=== PATIENT | female | born 1955 | race Caucasian/White ===

== ENCOUNTER 2018-01-03 12:32 | Emergency (ER) | payer OTHER, MEDICAID, SELFPAY ==
[2018-01-03 12:55] VITALS: BP 155/76; PULSE 77; RESP 20; TEMP 36.1; O2SAT 97
[2018-01-03 12:59] VITALS: PULSE 78; RESP 24; O2SAT 97
[2018-01-03] MEDS: ALBUTEROL/IPRATROPIUM 3 ML AMPUL INH (12:59)
--- NOTE | 2018-01-03 13:12 | ED_ITS ---
HPI - SOB/Dyspnea General Chief Complaint: Shortness of Breath/Dyspnea Stated Complaint: STATES HARD TIME BREATHING Time Seen by Provider: 01/03/18 13:11 Source: patient Mode of arrival: ambulatory Limitations: no limitations History of Present Illness 62 y/o female here for SOB and a cough for the past several days. she states that she has also had chest pain but that is with a cough. she states that she has a had a PE in the past and is on pradaxa. she has been taking her medications. she states that these symptoms are not like her prior PE. is using an albuterol INH at home. no fevers. Received a duo neb just prior to my evaluation and she states that she feels much better after that neb. Related Data Home Medications Medication Instructions Recorded Confirmed amlodipine 10 mg PO QDAY #0 04/02/11 01/03/18 tramadol 100 mg PO Q8HP #0 04/02/11 01/03/18 albuterol sulfate 3 ml INH PRN PRN #0 04/23/17 atorvastatin 80 mg PO HS #0 04/23/17 01/03/18 dabigatran etexilate [Pradaxa] 150 mg PO BID #0 04/23/17 01/03/18 spironolactone 50 mg PO QDAY #0 04/23/17 01/03/18 [CRANBERRY] PO QPM #0 05/28/17 [MILK THISTLE] PO QPM #0 05/28/17 [PROBIOTIC] PO QPM #0 05/28/17 [TURMERIC] PO QPM #0 05/28/17 coenzyme Q10 [Co Q-10] PO QPM #0 05/28/17 cyanocobalamin (vitamin B-12) PO QPM #0 05/28/17 [Vitamin B-12] albuterol sulfate [Ventolin HFA] 2 puff INHALATION PRN PRN 01/03/18 01/03/18 fluticasone-salmeterol [Advair HFA] 01/03/18 Previous Rx's Medication Instructions Recorded ipratropium-albuterol 3 ml INHALATION Q6-8H PRN #90 ml 01/03/18 levofloxacin [Levaquin] 750 mg PO DAILY 5 Days #5 tab 01/03/18 prednisone 60 mg PO DAILY 7 Days #21 tab 01/03/18 Allergies Allergy/AdvReac Type Severity Reaction Status Date / Time atenolol [ATENOLOL] Allergy Severe LUNG FILL Unverified 06/23/17 12:20 WITH FLUID doxycycline [DOXYCYCLINE] Allergy Severe HIVES Unverified 06/23/17 12:20 hydrochlorothiazide Allergy Severe COVERED IN Unverified 06/23/17 12:20 [HYDROCHLOROTHIAZIDE] BLISTERS lisinopril [LISINOPRIL] Allergy Severe SEVERE Unverified 06/23/17 12:20 COUGH metoprolol [METOPROLOL] Allergy Severe HAIR FELL Unverified 06/23/17 12:20 OUT Review of Systems Constitutional Denies fatigue, Denies fever(s) and Denies headache(s) ENT Ears, Nose, Mouth, and Throat: Denies headache(s) Cardiovascular Reports chest pain and Reports dyspnea Respiratory Reports chest congestion, Reports cough, Reports pain on inspiration, Reports pain with cough, Reports dyspnea, Denies stridor and Reports wheezing Gastrointestinal Gastrointestinal: Denies abdominal pain, Denies nausea and Denies vomiting Musculoskeletal Denies myalgias and Denies arthralgias Integumentary/Breasts Denies lesions and Denies rash Neurologic Denies confusion and Denies headache(s) Psychiatric Denies confusion Endocrine Denies fatigue Hematologic/Lymphatic Denies easy bleeding and Denies easy bruising Allergic/Immunologic Reports wheezing [facility] Medical History Hyperlipidemia (Acute) Hypertension (Acute) Pulmonary embolism (Acute) Surgical History No pertinent past surgical history (Acute) Social History Smoking Status: Current every day smoker Exam Initial Vital Signs Initial Vital Signs: Vital Signs Temperature 97 F L 01/03/18 12:55 Pulse Rate 77 01/03/18 12:55 Respiratory Rate 20 01/03/18 12:55 Blood Pressure 155/76 H 01/03/18 12:55 Pulse Oximetry 97 01/03/18 12:55 Const General: cooperative, healthy appearing, comfortable, well developed, well groomed and No acute distress Orientation: alert, awake and oriented x3 HENMT Head: normal to inspection and normocephalic Resp Effort & Inspection: normal respiratory effort Auscultation: clear to auscultation bilaterally Cardio Rate: regular rate Rhythm: regular rhythm Pulses: radial pulses present GI Inspection: non-distended Palpation: soft, No guarding and No tender Skin Lesions: no lesions Rashes: no rashes Neuro General: alert, awake and oriented x3 Extrem General: normal to inspection and capillary refill normal Psych Appearance: grossly normal and well kempt Course Orders Ordered: Discontinued Medications Albuterol (Proventil) 1.25 mg INH NOW ONE Stop: 01/03/18 14:45 Last Admin: 01/03/18 14:50 Dose: Albuterol (Ventolin) 2.5 mg INH NOW ONE Stop: 01/03/18 14:49 Last Admin: 01/03/18 14:49 Dose: 2.5 mg Albuterol/Ipratropium (Duoneb) 3 ml INH NOW ONE Stop: 01/03/18 12:58 Last Admin: 01/03/18 12:59 Dose: 3 ml Levofloxacin (Levaquin) 750 mg PO NOW ONE Stop: 01/03/18 13:21 Last Admin: 01/03/18 13:42 Dose: 750 mg Prednisone (Deltasone) 60 mg PO NOW ONE Stop: 01/03/18 13:21 Last Admin: 01/03/18 13:41 Dose: 60 mg Vital Signs - 8 hr 01/03/18 12:55 01/03/18 12:59 01/03/18 14:30 Temperature 97 F L Pulse Rate 77 78 88 Respiratory Rate 20 24 18 Blood Pressure 155/76 H Blood Pressure [Left Arm] 136/74 Pulse Oximetry 97 97 98 MDM - SOB/Dyspnea Lab Data Attestation: I reviewed the patient's lab results. Result diagrams: 01/03/18 13:51 01/03/18 13:51 Lab Results 01/03/18 01/03/18 Range/Units 13:51 13:51 WBC 7.9 (4.5-11.0) X10^3/uL RBC 5.24 H (4.0-5.2) X10^6/uL Hgb 16.3 H (12.0-16.0) g/dL Hct 48.3 H (36-46) % MCV 92.2 (80-100) fL MCH 31.0 (26-34) PG MCHC 33.7 (30-36) % RDW 13.6 (11.6-14.8) % Plt Count 242 (150-400) X10^3/uL Neut % (Auto) 72.6 (50-75) % Lymph % (Auto) 18.2 L (25-40) % [place] % (Auto) 6.1 (3-14) % Eos % (Auto) 2.5 (2-4) % Baso % (Auto) 0.6 (0-2) % Neut # (Auto) 5700 (9741-8548) /uL Sodium 141 (137-145) mmol/L Potassium 4.3 (3.4-5.1) mmol/L Chloride 102 (98-107) mmol/L Carbon Dioxide 28 (22-32) mmol/L BUN 13 (7-17) mg/dL Creatinine 0.60 (0.52-1.04) mg/dL Estimated GFR > 60.0 (>60) mL/min BUN/Creatinine Ratio 21.7 (6-22) Glucose 115 H (80-110) mg/dL Calcium 9.7 (8.4-10.2) mg/dL Troponin I < 0.012 (0.01-0.034) ng/mL Imaging Data Chest x-ray: Radiologist's impression: PROCEDURE: XR CHEST 1V INDICATIONS: Short of breath TECHNIQUE: One view of the chest was acquired. COMPARISON: [facility], CHEST 2 VIEW, 04/02/2011, 16:25. [facility], CHEST 2 VIEW, 03/27/2016, 15:33. [facility], CHEST 2 VIEW, 04/23/2017, 10:51. FINDINGS: Surgical changes and devices: None. Lungs and pleura: An incomplete inspiratory result is noted, causing a crowded appearance to the lung markings. No focal infiltrates are seen. No pneumothorax or significant pleural effusions are seen. Mediastinum: Mediastinal contours appear normal. Heart size is normal. Bones and chest wall: No suspicious bony lesions. Remote right lateral rib fractures are seen. Age-appropriate bony degenerative changes are seen. Overlying soft tissues appear unremarkable. IMPRESSION: Limited portable chest examination, without a significant cardiopulmonary abnormality identified. Dictated by: Zachery Maki M.D. on 01/03/2018 at 12:43 Approved by: Zachery Maki M.D. on 01/03/2018 at 12:43 ECG Data Attestation: I personally reviewed and interpreted this ECG as follows: Prior ECG tracings: not available for review Interpretation: sinus rate 70 normal axis normal QRS normal QTC no st/t wave changes MDM Narrative Medical decision making narrative: had a long discussion with the patient about her prior hx of PE and that she is at risk for this. she has been taking her pradaxa. she states that she did not want a CTA for a PE. she understood the risks. no PNA. much improved after the duo neb. will give a rx for this. doubt ACS, no indication for abx. she was given return precautions. she expressed understanding and agreement with plan. Discharge Plan Departure Patient Disposition: Home Clinical Impression: COPD (chronic obstructive pulmonary disease) Discharge Date/Time: 01/03/18 15:27 Interventions: ED Discharge Assessment Last Done: 01/03/18 15:27 Instructions: Chronic Obstructive Pulmonary Disease Activity Restrictions/Additional Instructions: Call your primary care doctor for a follow-up. Take the medications like we discussed. Return to the emergency department for any new or worsening symptoms. Prescriptions: New ipratropium-albuterol 0.5 mg-3 mg(2.5 mg base)/3 mL solution for nebulization 3 ml INHALATION Q6-8H PRN (Reason: shortness of breath or wheezing) Qty: 90 RF: 0 prednisone 20 mg tablet 60 mg PO DAILY 7 Days Qty: 21 RF: 0 levofloxacin [Levaquin] 750 mg tablet 750 mg PO DAILY 5 Days Qty: 5 RF: 0 No Action amlodipine 10 MG tablet 10 mg PO QDAY Qty: 0 RF: 0 tramadol 50 MG tablet 100 mg PO Q8HP Qty: 0 RF: 0 spironolactone 50 MG tablet 50 mg PO QDAY Qty: 0 RF: 0 albuterol sulfate 2.5 MG/3 ML solution for nebulization 3 ml INH PRN PRNQty: 0 RF: 0 atorvastatin 80 MG tablet 80 mg PO HS Qty: 0 RF: 0 dabigatran etexilate [Pradaxa] 150 MG capsule 150 mg PO BID Qty: 0 RF: 0 [CRANBERRY] PO QPM Qty: 0 RF: 0 [MILK THISTLE] PO QPM Qty: 0 RF: 0 [PROBIOTIC] PO QPM Qty: 0 RF: 0 [TURMERIC] PO QPM Qty: 0 RF: 0 cyanocobalamin (vitamin B-12) [Vitamin B-12] 500 mcg Tablet PO QPM Qty: 0 RF: 0 coenzyme Q10 [Co Q-10] 100 mg Capsule PO QPM Qty: 0 RF: 0 albuterol sulfate [Ventolin HFA] 90 mcg/actuation HFA aerosol inhaler 2 puff Inhalation PRN PRN (Reason: Shortness Of Breath) RF: 0 fluticasone-salmeterol [Advair HFA] 230-21 mcg/actuation HFA aerosol inhaler RF: 0
--- NOTE | 2018-01-03 13:21 | DI.RAD.S_ITS ---
PROCEDURE: XR CHEST 1V INDICATIONS: Short of breath TECHNIQUE: One view of the chest was acquired. COMPARISON: [facility], CHEST 2 VIEW, 04/02/2011, 16:25. [facility], CHEST 2 VIEW, 03/27/2016, 15:33. [facility], CHEST 2 VIEW, 04/23/2017, 10:51. FINDINGS: Surgical changes and devices: None. Lungs and pleura: An incomplete inspiratory result is noted, causing a crowded appearance to the lung markings. No focal infiltrates are seen. No pneumothorax or significant pleural effusions are seen. Mediastinum: Mediastinal contours appear normal. Heart size is normal. Bones and chest wall: No suspicious bony lesions. Remote right lateral rib fractures are seen. Age-appropriate bony degenerative changes are seen. Overlying soft tissues appear unremarkable. IMPRESSION: Limited portable chest examination, without a significant cardiopulmonary abnormality identified. Dictated by: Zachery Maki M.D. on 01/03/2018 at 12:43 Approved by: Zachery Maki M.D. on 01/03/2018 at 12:43
[2018-01-03] MEDS: predniSONE 20 MG TABLET 60 MG PO (13:41)
[2018-01-03] MEDS: levoFLOXacin 250 MG TABLET 750 MG PO (13:42)
[2018-01-03 14:00] LABS: Add Manual Diff / Slide Review NO; Basophils Percent Auto 0.6 % (0-2); Eosinophils Percent Auto 2.5 % (2-4); Hematocrit 48.3 % (36-46); Hemoglobin 16.3 g/dL (12.0-16.0); Lymphocytes Percent Auto 18.2 % (25-40); Mean Corpuscular HGB Conc 33.7 % (30-36); Mean Corpuscular Volume 92.2 fL (80-100); Monocytes Percent Auto 6.1 % (3-14); Neutrophils Absolute Auto 5700 /uL (3000-5900); Neutrophils Percent Auto 72.6 % (50-75); Platelet Count 242 X10^3/uL (150-400); Red Blood Cell Count 5.24 X10^6/uL (4.0-5.2); Red Cell Distribution Width 13.6 % (11.6-14.8); White Blood Cell Count 7.9 X10^3/uL (4.5-11.0)
[2018-01-03 14:19] LABS: BUN Creatinine Ratio 21.7 (6-22); Blood Urea Nitrogen 13 mg/dL (7-17); Calcium 9.7 mg/dL (8.4-10.2); Carbon Dioxide 28 mmol/L (22-32); Chloride 102 mmol/L (98-107); Estimated Glomerular Filt Rate > 60.0 mL/min (>60); Glucose 115 mg/dL (80-110); HEMOLYSIS < 15 (0-50); Potassium 4.3 mmol/L (3.4-5.1); Sodium 141 mmol/L (137-145)
[2018-01-03 14:30] VITALS: BP 136/74; PULSE 88; RESP 18; O2SAT 98
[2018-01-03 14:34] LABS: Troponin I < 0.012 ng/mL (0.01-0.034)
[2018-01-03] MEDS: ALBUTEROL 2.5 MG/3 ML NEB (ADULT) INH (14:49)
== END 2018-01-03 15:27 | disposition home or self-care (01) ==
PROVIDERS: Emergency Provider Emergency Medicine; Family Provider Nurse Practitioner Family; PCP Nurse Practitioner Family
DX: J44.9 Chronic obstructive pulmonary disease, unspecified (principal)
CPT/HCPCS: 36415; 71045; 80048; 84484; 85025; 93005; 93010; 94640; 99283; 99285; J7613

== ENCOUNTER 2018-01-25 13:31 | Emergency (ER) | payer OTHER, MEDICAID, SELFPAY ==
[2018-01-25 13:44] VITALS: BP 143/78; PULSE 76; RESP 20; TEMP 36.6; O2SAT 97; BMI 38.9
--- NOTE | 2018-01-25 15:02 | ED_ITS ---
HPI - URI/Sore Throat General Chief Complaint: Upper Respiratory Symptoms Stated Complaint: hard time breathing Time Seen by Provider: 01/25/18 14:23 Source: patient Mode of arrival: ambulatory Limitations: no limitations History of Present Illness HPI Narrative: Patient is a 62-year-old female who presents with shortness of breath. She has a history of COPD she says she has a hard time breathing especially at nighttime she cannot lay flat. She has shortness of breath with exertion. She feels like her chest is tight. But she has no real chest pain. She has been using her nebulizer machine at home without much relief. She was previously on his prednisone but is not currently on it. She denies fever or heart palpitations. MD Complaint: cough Related Data Home Medications Medication Instructions Recorded Confirmed amlodipine 10 mg PO DAILY #0 04/02/11 01/25/18 tramadol 100 mg PO Q4H PRN #0 04/02/11 01/25/18 albuterol sulfate 3 ml INH PRN PRN #0 04/23/17 atorvastatin 80 mg PO BEDTIME #0 04/23/17 01/25/18 dabigatran etexilate [Pradaxa] 150 mg PO BID #0 04/23/17 01/25/18 spironolactone 50 mg PO DAILY #0 04/23/17 01/25/18 [CRANBERRY] PO QPM #0 05/28/17 [MILK THISTLE] PO QPM #0 05/28/17 [PROBIOTIC] PO QPM #0 05/28/17 [TURMERIC] PO QPM #0 05/28/17 coenzyme Q10 [Co Q-10] PO QPM #0 05/28/17 cyanocobalamin (vitamin B-12) PO QPM #0 05/28/17 [Vitamin B-12] albuterol sulfate [Ventolin HFA] 2 puff INHALATION PRN PRN 01/03/18 01/25/18 fluticasone-salmeterol [Advair HFA] 01/03/18 valsartan 40 mg PO DAILY 01/25/18 01/25/18 Previous Rx's Medication Instructions Recorded ipratropium-albuterol 3 ml INHALATION Q6-8H PRN #90 ml 01/03/18 doxycycline hyclate 100 mg PO BID #14 cap 01/25/18 prednisone 50 mg PO DAILY #5 tab 01/25/18 Allergies Allergy/AdvReac Type Severity Reaction Status Date / Time atenolol [ATENOLOL] Allergy Severe LUNG FILL Verified 01/25/18 13:49 WITH FLUID doxycycline [DOXYCYCLINE] Allergy Severe HIVES Verified 01/25/18 13:49 hydrochlorothiazide Allergy Severe COVERED IN Verified 01/25/18 13:49 [HYDROCHLOROTHIAZIDE] BLISTERS lisinopril [LISINOPRIL] Allergy Severe SEVERE Verified 01/25/18 13:49 COUGH metoprolol [METOPROLOL] Allergy Severe HAIR FELL Verified 01/25/18 13:49 OUT Review of Systems Review of Systems GENERAL: Denies chills, fatigue, malaise, fever, sweats, travel HEENT: Denies sinus pain, ear pain, sore throat, difficulty swallowing, neck pain RESPIRATORY: See HPI CARDIOVASCULAR: Denies chest pain, palpitations, orthopnea, edema GASTROINTESTINAL: Denies nausea, vomiting, abdominal pain, diarrhea, constipation, melena. : Denies dysuria, frequency, incontinence, hematuria, urinary retention, flank pain. MUSCULOSKELETAL: Denies weakness, joint pain, or bony pain SKIN: No rash, no erythema, no pruritus NEUROLOGIC: Denies weakness, dizziness, headache, numbness, change in speech, confusion PSYCHIATRIC: No concerning psychosocial issues. 12 point review of systems is negative except for those stated above and HPI PFSH Medical History Hyperlipidemia (Acute) Hypertension (Acute) Pulmonary embolism (Acute) Surgical History No pertinent past surgical history (Acute) Social History Smoking Status: Current every day smoker Exam Initial Vital Signs Initial Vital Signs: Vital Signs Temperature 97.9 F 01/25/18 13:44 Pulse Rate 76 01/25/18 13:44 Respiratory Rate 20 01/25/18 13:44 Blood Pressure 143/78 H 01/25/18 13:44 Pulse Oximetry 97 01/25/18 13:44 GENERAL: In chair no acute distress speaking in full sentences HEENT: Head atraumatic,EOMI, pupils reactive, face symmetric CARDIOVASCULAR: Regular rate and rhythm without murmurs, rubs or gallops. RESPIRATORY: Decreased breath sounds bilaterally slight expiratory wheeze ABDOMEN: Soft, nontender. Normoactive bowel sounds all 4 quadrants. No guarding or rebound. EXTREMITIES: Normal range of motion, no clubbing or edema. Neurovascularly intact NEUROLOGICAL: Alert and oriented x4.Normal gait and speech. Cranial nerves II through XII grossly intact. SKIN: Warm, dry, no laceration, no petechiae, no rashes or lesions. Course Orders Ordered: ED Orders 01/25/18 14:58 Consult to Respiratory Therapy Evaluate & Treat EKG-12 Lead Stat 01/25/18 15:10 B Type Natriuretic Peptide Stat Complete Blood Count AUTO DIFF Stat Comprehensive Metabolic Panel Stat Magnesium Stat Partial Thromboplastin Time Stat Procalcitonin Stat Prothrombin Time INR Stat Troponin & CK Cardiac Panel Stat 01/25/18 15:38 Blood Culture Stat 01/25/18 15:54 Lactate (Lactic Acid) Stat Discontinued Medications Albuterol (Ventolin) 2.5 mg INH NOW ONE Stop: 01/25/18 15:39 Last Admin: 01/25/18 15:41 Dose: 2.5 mg Albuterol (Ventolin) 2.5 mg INH NOW ONE Stop: 01/25/18 15:47 Last Admin: 01/25/18 15:47 Dose: 2.5 mg Albuterol/Ipratropium (Duoneb) 3 ml INH NOW ONE Stop: 01/25/18 14:58 Last Admin: 01/25/18 15:36 Dose: 3 ml Methylprednisolone (Solu-Medrol 125 Mg Vial) 125 mg IV NOW ONE Stop: 01/25/18 14:58 Last Admin: 01/25/18 15:32 Dose: 125 mg Vital Signs - 8 hr 01/25/18 13:44 01/25/18 15:36 01/25/18 15:41 Temperature 97.9 F Pulse Rate 76 Respiratory Rate 20 Blood Pressure 143/78 H Pulse Oximetry 97 97 97 01/25/18 15:48 01/25/18 16:34 Temperature Pulse Rate 75 Respiratory Rate 22 Blood Pressure 150/79 H Pulse Oximetry 98 95 MDM - URI/Sore Throat Lab Data Attestation: I reviewed the patient's lab results. Result diagrams: 01/25/18 15:10 01/25/18 15:10 Lab Results 01/25/18 01/25/18 01/25/18 Range/Units 15:10 15:10 15:10 WBC 8.4 (4.5-11.0) X10^3/uL RBC 5.33 H (4.0-5.2) X10^6/uL Hgb 16.8 H (12.0-16.0) g/dL Hct 49.6 H (36-46) % MCV 93.0 (80-100) fL MCH 31.5 (26-34) PG MCHC 33.9 (30-36) % RDW 14.3 (11.6-14.8) % Plt Count 227 (150-400) X10^3/uL Neut % (Auto) 73.2 (50-75) % Lymph % (Auto) 14.0 L (25-40) % [place] % (Auto) 6.9 (3-14) % Eos % (Auto) 5.3 H (2-4) % Baso % (Auto) 0.6 (0-2) % Neut # (Auto) 6200 H (2677-7276) /uL PT 12.0 (10.1-12.7) SECONDS INR 1.1 (0.9-1.3) APTT 60 H (26.4-36.2) SECONDS Sodium 142 (137-145) mmol/L Potassium 4.7 (3.4-5.1) mmol/L Chloride 103 (98-107) mmol/L Carbon Dioxide 26 (22-32) mmol/L BUN 15 (7-17) mg/dL Creatinine 0.60 (0.52-1.04) mg/dL Estimated GFR > 60.0 (>60) mL/min BUN/Creatinine Ratio 25.0 H (6-22) Glucose 116 H (80-110) mg/dL Lactate (0.7-2.1) mmol/L Calcium 10.0 (8.4-10.2) mg/dL Magnesium 1.9 (1.6-2.3) mg/dL Total Bilirubin 0.9 (0.2-1.3) mg/dL AST 22 (14-36) IU/L ALT 25 (9-52) IU/L Alkaline Phosphatase 88 (38-126) U/L Total Creatine Kinase 45 (30-135) U/L CK-MB (CK-2) TNP CK-MB (CK-2) Rel Index TNP Troponin I < 0.012 (0.01-0.034) ng/mL B-Natriuretic Peptide < 29.4 (<100) Total Protein 7.7 (6.3-8.2) g/dL Albumin 4.9 (3.5-5.0) g/dL Globulin 2.8 (1.7-4.1) g/dL Albumin/Globulin Ratio 1.8 (1.0-2.8) Procalcitonin (<0.5) ng/mL 01/25/18 01/25/18 Range/Units 15:10 15:54 WBC (4.5-11.0) X10^3/uL RBC (4.0-5.2) X10^6/uL Hgb (12.0-16.0) g/dL Hct (36-46) % MCV (80-100) fL MCH (26-34) PG MCHC (30-36) % RDW (11.6-14.8) % Plt Count (150-400) X10^3/uL Neut % (Auto) (50-75) % Lymph % (Auto) (25-40) % [place] % (Auto) (3-14) % Eos % (Auto) (2-4) % Baso % (Auto) (0-2) % Neut # (Auto) (8691-6080) /uL PT (10.1-12.7) SECONDS INR (0.9-1.3) APTT (26.4-36.2) SECONDS Sodium (137-145) mmol/L Potassium (3.4-5.1) mmol/L Chloride (98-107) mmol/L Carbon Dioxide (22-32) mmol/L BUN (7-17) mg/dL Creatinine (0.52-1.04) mg/dL Estimated GFR (>60) mL/min BUN/Creatinine Ratio (6-22) Glucose (80-110) mg/dL Lactate 1.1 (0.7-2.1) mmol/L Calcium (8.4-10.2) mg/dL Magnesium (1.6-2.3) mg/dL Total Bilirubin (0.2-1.3) mg/dL AST (14-36) IU/L ALT (9-52) IU/L Alkaline Phosphatase (38-126) U/L Total Creatine Kinase (30-135) U/L CK-MB (CK-2) CK-MB (CK-2) Rel Index Troponin I (0.01-0.034) ng/mL B-Natriuretic Peptide (<100) Total Protein (6.3-8.2) g/dL Albumin (3.5-5.0) g/dL Globulin (1.7-4.1) g/dL Albumin/Globulin Ratio (1.0-2.8) Procalcitonin < 0.05 (<0.5) ng/mL Imaging Data Chest x-ray: Radiologist's impression: PROCEDURE: XR CHEST 1V INDICATIONS: Short of breath TECHNIQUE: One view of the chest was acquired. COMPARISON: [facility], CHEST 2 VIEW, 04/02/2011, 16:25. [facility], CHEST 2 VIEW, 03/27/2016, 15:33. [facility], CHEST 2 VIEW, 04/23/2017, 10:51. FINDINGS: Surgical changes and devices: None. Lungs and pleura: An incomplete inspiratory result is noted, causing a crowded appearance to the lung markings. No focal infiltrates are seen. No pneumothorax or significant pleural effusions are seen. Mediastinum: Mediastinal contours appear normal. Heart size is normal. Bones and chest wall: No suspicious bony lesions. Remote right lateral rib fractures are seen. Age-appropriate bony degenerative changes are seen. Overlying soft tissues appear unremarkable. IMPRESSION: Limited portable chest examination, without a significant cardiopulmonary abnormality identified. Dictated by: Zachery Maki M.D. on 01/03/2018 at 12:43 ECG Data Attestation: I personally reviewed and interpreted this ECG as follows: Interpretation: Sinus rhythm rate [address] changes MDM Narrative Medical decision making narrative: Patient overall is feeling much better after back to back breathing treatments. She had 3 total. She has no white count or fever. This is likely COPD exacerbation. EKG is and troponin are negative. Initially wrote for doxycycline however I did receive a phone call from the pharmacy patient apparently is allergic to doxycycline, it was changed to Levaquin 750 mg once a day. Discharge Plan Departure Patient Disposition: Home Clinical Impression: COPD (chronic obstructive pulmonary disease) Discharge Date/Time: 01/25/18 16:34 Interventions: ED Discharge Assessment Last Done: 01/25/18 16:34 Instructions: Chronic Obstructive Pulmonary Disease Activity Restrictions/Additional Instructions: *You have been diagnosed with COPD exacerbation *Continue to take medications as directed Albuterol inhaler every 4 hr if needed for coughing or shortness of breath Prednisone daily for 5 days Doxycycline twice a day 7 days *Follow up with your primary care provider in 2-3 days *Return to ER if you should have increasing shortness of breath, chest pain or any new, worsening or concerning symptoms Prescriptions: New doxycycline hyclate 100 mg capsule 100 mg PO BID Qty: 14 RF: 0 prednisone 50 mg tablet 50 mg PO DAILY Qty: 5 RF: 0 No Action amlodipine 10 MG tablet 10 mg PO DAILY Qty: 0 RF: 0 tramadol 50 MG tablet 100 mg PO Q4H PRN (Reason: pain) Qty: 0 RF: 0 spironolactone 50 MG tablet 50 mg PO DAILY Qty: 0 RF: 0 albuterol sulfate 2.5 MG/3 ML solution for nebulization 3 ml INH PRN PRNQty: 0 RF: 0 atorvastatin 80 MG tablet 80 mg PO BEDTIME Qty: 0 RF: 0 dabigatran etexilate [Pradaxa] 150 MG capsule 150 mg PO BID Qty: 0 RF: 0 [CRANBERRY] PO QPM Qty: 0 RF: 0 [MILK THISTLE] PO QPM Qty: 0 RF: 0 [PROBIOTIC] PO QPM Qty: 0 RF: 0 [TURMERIC] PO QPM Qty: 0 RF: 0 cyanocobalamin (vitamin B-12) [Vitamin B-12] 500 mcg Tablet PO QPM Qty: 0 RF: 0 coenzyme Q10 [Co Q-10] 100 mg Capsule PO QPM Qty: 0 RF: 0 albuterol sulfate [Ventolin HFA] 90 mcg/actuation HFA aerosol inhaler 2 puff Inhalation PRN PRN (Reason: Shortness Of Breath) RF: 0 fluticasone-salmeterol [Advair HFA] 230-21 mcg/actuation HFA aerosol inhaler RF: 0 ipratropium-albuterol 0.5 mg-3 mg(2.5 mg base)/3 mL solution for nebulization 3 ml INHALATION Q6-8H PRN (Reason: shortness of breath or wheezing) Qty: 90 RF: 0 valsartan 40 mg tablet 40 mg PO DAILY RF: 0 Referrals: Anna Barker ARNP [Primary Care Provider] -
[2018-01-25 15:30] LABS: INR 1.1 (0.9-1.3)
[2018-01-25 15:32] LABS: Add Manual Diff / Slide Review NO; Basophils Percent Auto 0.6 % (0-2); Eosinophils Percent Auto 5.3 % (2-4); Hematocrit 49.6 % (36-46); Hemoglobin 16.8 g/dL (12.0-16.0); Mean Corpuscular HGB Conc 33.9 % (30-36); Mean Corpuscular Hemoglobin 31.5 PG (26-34); Monocytes Percent Auto 6.9 % (3-14); Neutrophils Absolute Auto 6200 /uL (3000-5900); Neutrophils Percent Auto 73.2 % (50-75); PTT Partial Thromboplastin Tim 60 SECONDS (26.4-36.2); Platelet Count 227 X10^3/uL (150-400); Red Blood Cell Count 5.33 X10^6/uL (4.0-5.2); Red Cell Distribution Width 14.3 % (11.6-14.8); White Blood Cell Count 8.4 X10^3/uL (4.5-11.0)
[2018-01-25] MEDS: methylPREDNISolone 125 MG/2 ML VIAL IV (15:32)
[2018-01-25 15:34] LABS: Alanine Aminotransferase 25 IU/L (9-52); Albumin 4.9 g/dL (3.5-5.0); Albumin Globulin Ratio 1.8 (1.0-2.8); Alkaline Phosphatase 88 U/L (38-126); Aspartate Aminotransferase 22 IU/L (14-36); Bilirubin Total 0.9 mg/dL (0.2-1.3); Blood Urea Nitrogen 15 mg/dL (7-17); Carbon Dioxide 26 mmol/L (22-32); Chloride 103 mmol/L (98-107); Creatine Kinase 45 U/L (30-135); Estimated Glomerular Filt Rate > 60.0 mL/min (>60); Globulin 2.8 g/dL (1.7-4.1); Glucose 116 mg/dL (80-110); HEMOLYSIS < 15 (0-50); Magnesium 1.9 mg/dL (1.6-2.3); Potassium 4.7 mmol/L (3.4-5.1); Sodium 142 mmol/L (137-145); Total Protein 7.7 g/dL (6.3-8.2)
[2018-01-25 15:36] VITALS: O2SAT 97
[2018-01-25] MEDS: ALBUTEROL/IPRATROPIUM 3 ML AMPUL INH (15:36)
[2018-01-25 15:41] VITALS: O2SAT 97
[2018-01-25] MEDS: ALBUTEROL 2.5 MG/3 ML NEB (ADULT) INH ×2 (15:41→15:47)
[2018-01-25 15:47] LABS: Troponin I < 0.012 ng/mL (0.01-0.034)
[2018-01-25 15:48] VITALS: O2SAT 98
[2018-01-25 15:48] LABS: Procalcitonin < 0.05 ng/mL (<0.5)
[2018-01-25 15:49] LABS: B Type Natriuretic Peptide < 29.4 (<100)
[2018-01-25 16:08] LABS: Lactate (Lactic Acid) 1.1 mmol/L (0.7-2.1)
[2018-01-25 16:34] VITALS: BP 150/79; PULSE 75; RESP 22; O2SAT 95
== END 2018-01-25 16:34 | disposition home or self-care (01) ==
PROVIDERS: Emergency Provider Emergency Medicine; PCP Nurse Practitioner Family
DX: J44.9 Chronic obstructive pulmonary disease, unspecified (principal)
CPT/HCPCS: 36415; 36591; 80053; 82550; 83605; 83735; 83880; 84145; 84484; 85025; 85610; 85730; 87040; 93005; 94640; 96374; 99283; 99284; J2930; J7613

== ENCOUNTER → 2018-02-19 14:07 | Outpatient (CLI) | payer OTHER, MEDICAID, SELFPAY ==
--- NOTE | 2018-02-19 | DI.MRI.S_ITS ---
PROCEDURE: MR KNEE RT WO CON INDICATIONS: UNILATERAL PRIMARY OSTEOARTHRITIS OF RIGHT KNEE TECHNIQUE: Noncontrast sagittal PD fast spin echo and T2 fast spin echo with fat saturation, sagittal 3-D FLASH with fat saturation; coronal T1 spin echo and PD fast spin echo with fat saturation, and axial PD fast spin echo with fat saturation through the knee. COMPARISON: [facility] [place], CR, XR KNEE STANDING BILATERAL, 06/08/2017, 15:16. [facility], MR, KNEE WITHOUT CONTRAST, 06/28/2017, 14:49. FINDINGS: Image quality: Excellent. 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 There is mild undersurface signal change involving the posterior horn medial meniscus complex sample image [id number] of series 8 which is new and represent subtle undersurface nondisplaced tear however recommend correlation to clinical exam findings. Lateral meniscus appears grossly intact. Cruciate ligaments: The anterior and posterior cruciate ligaments appear intact. Medial structures: The medial collateral ligament appears intact. Visualized portions of the distal semimembranosus and pes anserinus tendons appear minimally thickened with low-grade intrasubstance signal change. No abnormal bursal fluid. Lateral structures: The lateral collateral ligament, long and short heads of the biceps femoris tendon appear intact. The popliteus tendon appears normal; the popliteofibular ligament appears intact. The posterosuperior and anteroinferior popliteomeniscal fascicles appear intact. The arcuate and fabellofibular ligaments appear intact, on either side of the lateral inferior geniculate artery. Iliotibial band appears normal. Anterior structures: The quadriceps and patellar tendons appear intact. Minimal diffuse patellar tendinopathy. Patellar alignment is normal. No femoral trochlear dysplasia or ventral trochlear prominence. No edema in the infrapatellar fat pad. Bones and cartilage: No bone marrow contusions or fractures. In the area of previously described T2 hyperintense possible enchondroma involving the medial tibial plateau, this appears less conspicuous since prior study dated 06/28/17 (image 22 series 11) no discrete lesion is currently seen and the previous appearance may have been focal edema/cystic change, potentially related to minimal semimembranosus or pes anserinus insertional tendinopathy. Within the medial compartment there is diffuse partial thickness loss of the femoral and tibial articular cartilage without focal defect. This appears unchanged. Within the lateral compartment, intrasubstance signal changes of the weightbearing tibial cartilage without definite focal defect. This also appears unchanged. Within the patellofemoral compartment, there is diffuse partial thickness loss of the trochlear and patellar articular cartilage with subchondral cystic change/marrow edema at the median patellar ridge which is more conspicuous since the prior study Joint space: There is physiologic knee joint fluid. No Barragan's cyst. Normal appearing synovial plicae are incidentally noted. IMPRESSION: Interval decrease in the prior T2 hyperintense focus seen at the medial tibial plateau since the prior study suggestive of resolving cystic change/edema rather than enchondroma. Minimal interval progression of subchondral patellar signal changes related to patellofemoral compartment joint degeneration. Grossly unchanged appearance of the medial and lateral compartments. Possible nondisplaced undersurface tear involving the posterior horn of the medial meniscus, new since prior study although please correlate clinically given the subtle MR appearance Dictated by: Wiliam Farley M.D. on 02/21/2018 at 9:46 Approved by: Wiliam Farley M.D. on 02/21/2018 at 10:15
== END ==
PROVIDERS: PCP Nurse Practitioner Family; Visit Provider Orthopaedic Surgery
DX: M17.11 Unilateral primary osteoarthritis, right knee (principal)
CPT/HCPCS: 73721

== ENCOUNTER 2018-06-15 11:55 | Emergency (ER) | payer OTHER, MEDICAID, SELFPAY ==
[2018-06-15] VITALS (10 sets, daily range): BP systolic 137–145; BP diastolic 59–87; PULSE 68–83; RESP 20–32; TEMP 37.2; O2SAT 89–98
[2018-06-15] MEDS: ALBUTEROL/IPRATROPIUM 3 ML AMPUL INH ×2 (12:16→13:53)
--- NOTE | 2018-06-15 12:52 | ED.SOB ---
HPI - SOB/Dyspnea General Chief Complaint: Shortness of Breath/Dyspnea Stated Complaint: TROUBLE BREATHING Time Seen by Provider: 06/15/18 12:23 Source: patient Mode of arrival: ambulatory Limitations: no limitations History of Present Illness Patient presents emergency department complaining of shortness of breath for 3 days. She has a history of COPD with as needed home O2 use, and states that she has also had a recent URI, which is still bothering her. Patient states that she has tried using her home nebulizer treatments, as well as double dosing on her Advair, and does not feel like she is getting any better. In fact, she states she feels as though she is getting worse. Patient states she has not measured any fevers, but states that she did take some Tylenol and ibuprofen last night, and about an hour later, noted herself to be sweating heavily. She states that she has not been coughing up anything, but her chest feels tight. No abdominal symptoms. Patient states her chest is ?sore? with deep breaths and coughing. Related Data Home Medications Medication Instructions Recorded Confirmed amlodipine 10 mg PO DAILY #0 04/02/11 01/25/18 tramadol 100 mg PO Q4H PRN #0 04/02/11 01/25/18 albuterol sulfate 3 ml INH PRN PRN #0 04/23/17 atorvastatin 80 mg PO BEDTIME #0 04/23/17 01/25/18 dabigatran etexilate [Pradaxa] 150 mg PO BID #0 04/23/17 01/25/18 spironolactone 50 mg PO DAILY #0 04/23/17 01/25/18 [CRANBERRY] PO QPM #0 05/28/17 [MILK THISTLE] PO QPM #0 05/28/17 [PROBIOTIC] PO QPM #0 05/28/17 [TURMERIC] PO QPM #0 05/28/17 coenzyme Q10 [Co Q-10] PO QPM #0 05/28/17 cyanocobalamin (vitamin B-12) PO QPM #0 05/28/17 [Vitamin B-12] albuterol sulfate [Ventolin HFA] 2 puff INHALATION PRN PRN 01/03/18 01/25/18 fluticasone propion-salmeterol 01/03/18 [Advair HFA] valsartan 40 mg PO DAILY 01/25/18 01/25/18 Previous Rx's Medication Instructions Recorded ipratropium-albuterol 3 ml INHALATION Q6-8H PRN #90 ml 01/03/18 doxycycline hyclate 100 mg PO BID #14 cap 01/25/18 prednisone 50 mg PO DAILY #5 tab 01/25/18 prednisone 60 mg PO DAILY #15 tab 06/15/18 Allergies Allergy/AdvReac Type Severity Reaction Status Date / Time atenolol [ATENOLOL] Allergy Severe LUNG FILL Verified 01/25/18 13:49 WITH FLUID doxycycline [DOXYCYCLINE] Allergy Severe HIVES Verified 01/25/18 13:49 hydrochlorothiazide Allergy Severe COVERED IN Verified 01/25/18 13:49 [HYDROCHLOROTHIAZIDE] BLISTERS lisinopril [LISINOPRIL] Allergy Severe SEVERE Verified 01/25/18 13:49 COUGH metoprolol [METOPROLOL] Allergy Severe HAIR FELL Verified 01/25/18 13:49 OUT Review of Systems Constitutional Denies chills, Denies fever(s), Denies lethargy and Denies weakness Eyes Denies change in vision, Denies eye discharge, Denies irritation and Denies loss of vision ENT Ears, Nose, Mouth, and Throat: Denies change in voice, Denies neck pain and Denies sore throat Cardiovascular Denies chest pain, Denies irregular heart rhythm, Denies lightheadedness, Denies palpitations, Reports dyspnea, Reports dyspnea on exertion and Denies orthopnea Respiratory Reports cough (Dry), Reports dyspnea, Reports dyspnea on exertion and Denies wheezing Gastrointestinal Gastrointestinal: Denies abdominal pain, Denies change in bowel habits, Denies diarrhea, Denies nausea and Denies vomiting Genitourinary Denies hematuria, Denies flank pain, Denies urinary incontinence and Denies urinary urgency Musculoskeletal Denies neck pain Integumentary/Breasts Denies pruritus, Denies erythema, Denies rash and Denies wounds Neurologic Denies confusion, Denies loss of vision and Denies weakness Psychiatric Denies anxiety, Denies confusion, Denies depression, Denies homicidal ideation and Denies suicidal ideation Endocrine Denies palpitations Hematologic/Lymphatic Denies easy bruising Allergic/Immunologic Denies wheezing [facility] Medical History Hyperlipidemia (Acute) Hypertension (Acute) Pulmonary embolism (Acute) Surgical History No pertinent past surgical history (Acute) Social History Smoking Status: Current every day smoker Social History Smoking Status: Current every day smoker Exam Initial Vital Signs Initial Vital Signs: Vital Signs Temperature 98.9 F 06/15/18 12:14 Pulse Rate 81 06/15/18 12:14 Respiratory Rate 30 H 06/15/18 12:14 Blood Pressure 143/65 H 06/15/18 12:14 Pulse Oximetry 89 L 06/15/18 12:14 Const General: cooperative and well developed Nutritional Appearance: well nourished Orientation: alert, awake, oriented x3 and not confused HENMT Head: normocephalic and atraumatic Ears: external ears normal Nose: external nose normal and No nasal discharge Face and sinus: face symmetric and No dry mucous membranes Mouth: oral mucosae normal and moist mucous membranes Teeth and gingiva: dentition normal Eyes General: appearance normal, both eyes and all related structures Eyelids: eyelids normal Conjunctivae: conjunctivae normal Sclera: sclerae normal Pupils: PERRL EOM: EOM intact bilaterally Neck Neck: normal visual inspection, trachea midline, No lymphadenopathy, No midline deformity and No JVD Lymphatic: No lymphedema Chest Chest: normal inspection of the chest Resp Effort & Inspection: normal respiratory effort, able to speak in complete sentences, no respiratory distress and no use of accessory muscles Auscultation: diminished lung sounds bilaterally throughout, no rales, no rhonchi and wheezes Cardio Rate: regular rate Rhythm: regular rhythm Heart Sounds: no click, no gallops, no murmurs and no rubs Pulses: normal peripheral pulses GI Inspection: non-distended Palpation: soft, no hepatosplenomegaly, No guarding, No pulsatile mass and No tender Auscultation: normal bowel sounds Back/Spine/Pelvis Back: No CVA tenderness Cervical Spine: cervical ROM normal and No pain with cervical ROM Thoracic/Lumbar Spine: thoracic and lumbar spine normal to inspection Skin General: no rashes or lesions noted, No jaundice and No petechiae Neuro General: alert, oriented x3, gait normal and no focal motor deficits Speech: speech normal Extrem General: full ROM, no clubbing, cyanosis or edema, no pedal edema and no calf tenderness Psych Appearance: well kempt Mental Status: mental status grossly normal Attitude: cooperative Thought Content: normal and suicidality Judgment: judgment good Course Course Narrative: Patient was treated with a DuoNeb in the emergency department, as well as IV Decadron. She was also worked up with labs and chest x-ray. Patient had also had a DuoNeb just before coming to the emergency department. The patient did have decreased air movement and was wheezing, but was able to speak in full sentences without difficulty in the emergency department. Orders Ordered: Discontinued Medications Albuterol/Ipratropium (Duoneb) 3 ml INH Q1H PRN PRN Reason: Shortness Of Breath Last Admin: 06/15/18 12:16 Dose: 3 ml Albuterol/Ipratropium (Duoneb) 3 ml INH NOW ONE Stop: 06/15/18 13:51 Last Admin: 06/15/18 13:53 Dose: 3 ml Dexamethasone 20 mg/ Sodium (Chloride) 52 mls @ 208 mls/hr IV NOW ONE Stop: 06/15/18 12:52 Last Infusion: 06/15/18 13:25 Dose: 0 mls/hr Admin: 06/15/18 13:01 Dose: 208 mls/hr Sodium Chloride (Normal Saline 0.9%) 1,000 mls @ 1,000 mls/hr IV BOLUS ONE Stop: 06/15/18 13:50 Last Infusion: 06/15/18 14:50 Dose: 0 mls/hr Admin: 06/15/18 13:01 Dose: 1,000 mls/hr Lorazepam (Ativan) 1 mg IV NOW ONE Stop: 06/15/18 12:52 Last Admin: 06/15/18 13:00 Dose: 1 mg Vital Signs - 8 hr 06/15/18 12:14 06/15/18 12:17 06/15/18 12:23 Temperature 98.9 F Pulse Rate 81 80 Respiratory Rate 30 H 32 H Blood Pressure 143/65 H Blood Pressure [Left Arm] 143/65 H Pulse Oximetry 89 L 90 L 92 06/15/18 12:33 Temperature Pulse Rate 82 Respiratory Rate 30 H Blood Pressure Blood Pressure [Left Arm] 137/59 L Pulse Oximetry 93 MDM - SOB/Dyspnea Medical Records Attestation: I reviewed the patient's medical records. Lab Data Attestation: I reviewed the patient's lab results. Result diagrams: 06/15/18 12:07 06/15/18 12:07 Lab Results 06/15/18 06/15/18 Range/Units 12: 12:07 WBC 6.8 (4.5-11.0) X10^3/uL RBC 4.76 (4.0-5.2) X10^6/uL Hgb 15.0 (12.0-16.0) g/dL Hct 44.7 (36-46) % MCV 93.8 (80-100) fL MCH 31.5 (26-34) PG MCHC 33.6 (30-36) % RDW 13.5 (11.6-14.8) % Plt Count 189 (150-400) X10^3/uL Neut % (Auto) 84.4 H (50-75) % Lymph % (Auto) 7.4 L (25-40) % Mercer % (Auto) 7.1 (3-14) % Eos % (Auto) 0.7 L (2-4) % Baso % (Auto) 0.4 (0-2) % Neut # (Auto) 5800 (6145-0850) /uL Lymph # (Auto) 500 L (7388-5111) /uL Mercer # (Auto) 500 (0-900) /uL Eos # (Auto) 0 (0-450) /uL Baso # (Auto) 0 (0-100) /uL Sodium 139 (137-145) mmol/L Potassium 3.5 (3.4-5.1) mmol/L Chloride 103 (98-107) mmol/L Carbon Dioxide 26 (22-32) mmol/L BUN 6 L (7-17) mg/dL Creatinine 0.60 (0.52-1.04) mg/dL Estimated GFR > 60.0 (>60) mL/min BUN/Creatinine Ratio 10.0 (6-22) Glucose 178 H (80-110) mg/dL Calcium 9.0 (8.4-10.2) mg/dL Total Bilirubin 0.5 (0.2-1.3) mg/dL AST 89 H (14-36) IU/L ALT 74 H (9-52) IU/L Alkaline Phosphatase 98 (38-126) U/L Total Protein 6.9 (6.3-8.2) g/dL Albumin 4.0 (3.5-5.0) g/dL Globulin 2.9 (1.7-4.1) g/dL Albumin/Globulin Ratio 1.4 (1.0-2.8) Imaging Data Chest x-ray: Radiologist's impression: [address] [address] XRay Report Signed Patient: Hermila Calderón KMR#: [id number] : 8Acct:[id number] Age/Sex: 63 / FDate of Service: 06/15/18 Loc: ED Accession Number: [id number] Procedure: XR chest 2V Ordering Provider: Desiree Hay MD PROCEDURE: XR CHEST 2V INDICATIONS: dyspnea TECHNIQUE: 2 views of the chest were acquired. COMPARISON: [facility], , XR CHEST 1V, 01/03/2018, 13:26. FINDINGS: Surgical changes and devices: None. Lungs and pleura: Minimal increased pulmonary vascularity. No pleural effusions or pneumothorax. Mediastinum: Mediastinal contours are normal. Heart size is normal. Bones and chest wall: No suspicious bony abnormalities. Soft tissues appear unremarkable. IMPRESSION: Minimal increased pulmonary vacularity. Dictated by: Jaimie Arredondo M.D. on 06/15/2018 at 13:19 Approved by: Jaimie Arredondo M.D. on 06/15/2018 at 13:23 Discharge Plan Departure Patient Disposition: Home Clinical Impression: Acute exacerbation of chronic obstructive airways disease, Acute upper respiratory infection Discharge Date/Time: 06/15/18 16:15 Interventions: ED Discharge Assessment Last Done: 06/15/18 16:13 Instructions: DI for Chronic Obstructive Pulmonary Disease, DI for Viral Upper Respiratory Infection -- Adult Activity Restrictions/Additional Instructions: Your x-ray looks good. Please take the prednisone, as directed, along with your inhalers and nebulizers at home. You have been given a prescription for antibiotics, which you do not need to take at this time. However, if you begin running fevers and coughing up thick yellow sputum, you should start the antibiotics. Prescriptions: New prednisone 20 mg tablet 60 mg PO DAILY Qty: 15 RF: 0 No Action amlodipine 10 MG tablet 10 mg PO DAILY Qty: 0 RF: 0 tramadol 50 MG tablet 100 mg PO Q4H PRN (Reason: pain) Qty: 0 RF: 0 spironolactone 50 MG tablet 50 mg PO DAILY Qty: 0 RF: 0 albuterol sulfate 2.5 MG/3 ML solution for nebulization 3 ml INH PRN PRNQty: 0 RF: 0 atorvastatin 80 MG tablet 80 mg PO BEDTIME Qty: 0 RF: 0 dabigatran etexilate [Pradaxa] 150 MG capsule 150 mg PO BID Qty: 0 RF: 0 [CRANBERRY] PO QPM Qty: 0 RF: 0 [MILK THISTLE] PO QPM Qty: 0 RF: 0 [PROBIOTIC] PO QPM Qty: 0 RF: 0 [TURMERIC] PO QPM Qty: 0 RF: 0 cyanocobalamin (vitamin B-12) [Vitamin B-12] 500 mcg Tablet PO QPM Qty: 0 RF: 0 coenzyme Q10 [Co Q-10] 100 mg Capsule PO QPM Qty: 0 RF: 0 albuterol sulfate [Ventolin HFA] 90 mcg/actuation HFA aerosol inhaler 2 puff Inhalation PRN PRN (Reason: Shortness Of Breath) RF: 0 fluticasone propion-salmeterol [Advair HFA] 230-21 mcg/actuation HFA aerosol inhaler RF: 0 ipratropium-albuterol 0.5 mg-3 mg(2.5 mg base)/3 mL solution for nebulization 3 ml INHALATION Q6-8H PRN (Reason: shortness of breath or wheezing) Qty: 90 RF: 0 valsartan 40 mg tablet 40 mg PO DAILY RF: 0 doxycycline hyclate 100 mg capsule 100 mg PO BID Qty: 14 RF: 0 prednisone 50 mg tablet 50 mg PO DAILY Qty: 5 RF: 0 Referrals: Anna Barker ARNP [Primary Care Provider] - Stand Alone Forms: Work Release Note
--- NOTE | 2018-06-15 12:57 | ED_ITS ---
HPI - SOB/Dyspnea General Chief Complaint: Shortness of Breath/Dyspnea Stated Complaint: TROUBLE BREATHING Time Seen by Provider: 06/15/18 12:23 Source: patient Mode of arrival: ambulatory Limitations: no limitations History of Present Illness Patient presents emergency department complaining of shortness of breath for 3 days. She has a history of COPD with as needed home O2 use, and states that she has also had a recent URI, which is still bothering her. Patient states that she has tried using her home nebulizer treatments, as well as double dosing on her Advair, and does not feel like she is getting any better. In fact, she stat es she feels as though she is getting worse. Patient states she has not measured any fevers, but states that she did take some Tylenol and ibuprofen last night, and about an hour later, noted herself to be sweating heavily. She states that she has not been coughing up anything, but her chest feels tight. No abdominal symptoms. Patient states her chest is ?sore? with deep breaths and coughing. Related Data Home Medications Medication Instructions Recorded Confirmed amlodipine 10 mg PO DAILY #0 04/02/11 01/25/18 tramadol 100 mg PO Q4H PRN #0 04/02/11 01/25/18 albuterol sulfate 3 ml INH PRN PRN #0 04/23/17 atorvastatin 80 mg PO BEDTIME #0 04/23/17 01/25/18 dabigatran etexilate [Pradaxa] 150 mg PO BID #0 04/23/17 01/25/18 spironolactone 50 mg PO DAILY #0 04/23/17 01/25/18 [CRANBERRY] PO QPM #0 05/28/17 [MILK THISTLE] PO QPM #0 05/28/17 [PROBIOTIC] PO QPM #0 05/28/17 [TURMERIC] PO QPM #0 05/28/17 coenzyme Q10 [Co Q-10] PO QPM #0 05/28/17 cyanocobalamin (vitamin B-12) PO QPM #0 05/28/17 [Vitamin B-12] albuterol sulfate [Ventolin HFA] 2 puff INHALATION PRN PRN 01/03/18 01/25/18 fluticasone propion-salmeterol 01/03/18 [Advair HFA] valsartan 40 mg PO DAILY 01/25/18 01/25/18 Previous Rx's Medication Instructions Recorded ipratropium-albuterol 3 ml INHALATION Q6-8H PRN #90 ml 01/03/18 doxycycline hyclate 100 mg PO BID #14 cap 01/25/18 prednisone 50 mg PO DAILY #5 tab 01/25/18 prednisone 60 mg PO DAILY #15 tab 06/15/18 Allergies Allergy/AdvReac Type Severity Reaction Status Date / Time atenolol [ATENOLOL] Allergy Severe LUNG FILL Verified 01/25/18 13:49 WITH FLUID doxycycline [DOXYCYCLINE] Allergy Severe HIVES Verified 01/25/18 13:49 hydrochlorothiazide Allergy Severe COVERED IN Verified 01/25/18 13:49 [HYDROCHLOROTHIAZIDE] BLISTERS lisinopril [LISINOPRIL] Allergy Severe SEVERE Verified 01/25/18 13:49 COUGH metoprolol [METOPROLOL] Allergy Severe HAIR FELL Verified 01/25/18 13:49 OUT Review of Systems Constitutional Denies chills, Denies fever(s), Denies lethargy and Denies weakness Eyes Denies change in vision, Denies eye discharge, Denies irritation and Denies loss of vision ENT Ears, Nose, Mouth, and Throat: Denies change in voice, Denies neck pain and Denies sore throat Cardiovascular Denies chest pain, Denies irregular heart rhythm, Denies lightheadedness, Denies palpitations, Reports dyspnea, Reports dyspnea on exertion and Denies orthopnea Respiratory Reports cough (Dry), Reports dyspnea, Reports dyspnea on exertion and Denies w heezing Gastrointestinal Gastrointestinal: Denies abdominal pain, Denies change in bowel habits, Denies diarrhea, Denies nausea and Denies vomiting Genitourinary Denies hematuria, Denies flank pain, Denies urinary incontinence and Denies urinary urgency Musculoskeletal Denies neck pain Integumentary/Breasts Denies pruritus, Denies erythema, Denies rash and Denies wounds Neurologic Denies confusion, Denies loss of vision and Denies weakness Psychiatric Denies anxiety, Denies confusion, Denies depression, Denies homicidal ideation and Denies suicidal ideation Endocrine Denies palpitations Hematologic/Lymphatic Denies easy bruising Allergic/Immunologic Denies wheezing [facility] Medical History Hyperlipidemia (Acute) Hypertension (Acute) Pulmonary embolism (Acute) Surgical History No pertinent past surgical history (Acute) Social History Smoking Status: Current every day smoker Social History Smoking Status: Current every day smoker Exam Initial Vital Signs Initial Vital Signs: Vital Signs Temperature 98.9 F 06/15/18 12:14 Pulse Rate 81 06/15/18 12:14 Respiratory Rate 30 H 06/15/18 12:14 Blood Pressure 143/65 H 06/15/18 12:14 Pulse Oximetry 89 L 06/15/18 12:14 Const General: cooperative and well developed Nutritional Appearance: well nourished Orientation: alert, awake, oriented x3 and not confused HENMT Head: normocephalic and atraumatic Ears: external ears normal Nose: external nose normal and No nasal discharge Face and sinus: face symmetric and No dry mucous membranes Mouth: oral mucosae normal and moist mucous membranes Teeth and gingiva: dentition normal Eyes General: appearance normal, both eyes and all related structures Eyelids: eyelids normal Conjunctivae: conjunctivae normal Sclera: sclerae normal Pupils: PERRL EOM: EOM intact bilaterally Neck Neck: normal visual inspection, trachea midline, No lymphadenopathy, No midline deformity and No JVD Lymphatic: No lymphedema Chest Chest: normal inspection of the chest Resp Effort & Inspection: normal respiratory effort, able to speak in complete sentences, no respiratory distress and no use of accessory muscles Auscultation: diminished lung sounds bilaterally throughout, no rales, no rhonchi and wheezes Cardio Rate: regular rate Rhythm: regular rhythm Heart Sounds: no click, no gallops, no murmurs and no rubs Pulses: normal peripheral pulses GI Inspection: non-distended Palpation: soft, no hepatosplenomegaly, No guarding, No pulsatile mass and No tender Auscultation: normal bowel sounds Back/Spine/Pelvis Back: No CVA tenderness Cervical Spine: cervical ROM normal and No pain with cervical ROM Thoracic/Lumbar Spine: thoracic and lumbar spine normal to inspection Skin General: no rashes or lesions noted, No jaundice and No petechiae Neuro General: alert, oriented x3, gait normal and no focal motor deficits Speech: speech normal Extrem General: full ROM, no clubbing, cyanosis or edema, no pedal edema and no calf tenderness Psych Appearance: well kempt Mental Status: mental status grossly normal Attitude: cooperative Thought Content: normal and suicidality Judgment: judgment good Course Course Narrative: Patient was treated with a DuoNeb in the emergency department, as well as IV Decadron. She was also worked up with labs and chest x-ray. Patient had also had a DuoNeb just before coming to the emergency department. The patient did have decreased air movement and was wheezing, but was able to speak in full sentences without difficulty in the emergency department. Orders Ordered: Discontinued Medications Albuterol/Ipratropium (Duoneb) 3 ml INH Q1H PRN PRN Reason: Shortness Of Breath Last Admin: 06/15/18 12:16 Dose: 3 ml Albuterol/Ipratropium (Duoneb) 3 ml INH NOW ONE Stop: 06/15/18 13:51 Last Admin: 06/15/18 13:53 Dose: 3 ml Dexamethasone 20 mg/ Sodium (Chloride) 52 mls @ 208 mls/hr IV NOW ONE Stop: 06/15/18 12:52 Last Infusion: 06/15/18 13:25 Dose: 0 mls/hr Admin: 06/15/18 13:01 Dose: 208 mls/hr Sodium Chloride (Normal Saline 0.9%) 1,000 mls @ 1,000 mls/hr IV BOLUS ONE Stop: 06/15/18 13:50 Last Infusion: 06/15/18 14:50 Dose: 0 mls/hr Admin: 06/15/18 13:01 Dose: 1,000 mls/hr Lorazepam (Ativan) 1 mg IV NOW ONE Stop: 06/15/18 12:52 Last Admin: 06/15/18 13:00 Dose: 1 mg Vital Signs - 8 hr 06/15/18 12:14 06/15/18 12:17 06/15/18 12:23 Temperature 98.9 F Pulse Rate 81 80 Respiratory Rate 30 H 32 H Blood Pressure 143/65 H Blood Pressure [Left Arm] 143/65 H Pulse Oximetry 89 L 90 L 92 06/15/18 12:33 Temperature Pulse Rate 82 Respiratory Rate 30 H Blood Pressure Blood Pressure [Left Arm] 137/59 L Pulse Oximetry 93 MDM - SOB/Dyspnea Medical Records Attestation: I reviewed the patient's medical records. Lab Data Attestation: I reviewed the patient's lab results. Result diagrams: 06/15/18 12:07 06/15/18 12:07 Lab Results 06/15/18 06/15/18 Range/Units 12:07 12:07 WBC 6.8 (4.5-11.0) X10^3/uL RBC 4.76 (4.0-5.2) X10^6/uL Hgb 15.0 (12.0-16.0) g/dL Hct 44.7 (36-46) % MCV 93.8 (80-100) fL MCH 31.5 (26-34) PG MCHC 33.6 (30-36) % RDW 13.5 (11.6-14.8) % Plt Count 189 (150-400) X10^3/uL Neut % (Auto) 84.4 H (50-75) % Lymph % (Auto) 7.4 L (25-40) % [place] % (Auto) 7.1 (3-14) % Eos % (Auto) 0.7 L (2-4) % Baso % (Auto) 0.4 (0-2) % Neut # (Auto) 5800 (9058-6111) /uL Lymph # (Auto) 500 L (8910-7787) /uL [place] # (Auto) 500 (0-900) /uL Eos # (Auto) 0 (0-450) /uL Baso # (Auto) 0 (0-100) /uL Sodium 139 (137-145) mmol/L Potassium 3.5 (3.4-5.1) mmol/L Chloride 103 (98-107) mmol/L Carbon Dioxide 26 (22-32) mmol/L BUN 6 L (7-17) mg/dL Creatinine 0.60 (0.52-1.04) mg/dL Estimated GFR > 60.0 (>60) mL/min BUN/Creatinine Ratio 10.0 (6-22) Glucose 178 H (80-110) mg/dL Calcium 9.0 (8.4-10.2) mg/dL Total Bilirubin 0.5 (0.2-1.3) mg/dL AST 89 H (14-36) IU/L ALT 74 H (9-52) IU/L Alkaline Phosphatase 98 (38-126) U/L Total Protein 6.9 (6.3-8.2) g/dL Albumin 4.0 (3.5-5.0) g/dL Globulin 2.9 (1.7-4.1) g/dL Albumin/Globulin Ratio 1.4 (1.0-2.8) Imaging Data Chest x-ray: Radiologist's impression: [address] [address] XRay Report Signed Patient: Hermila Calderón KMR#: [id number] : 8Acct:[id number] Age/Sex: 63 / FDate of Service: 06/15/18 Loc: ED Accession Number: [id number] Procedure: XR chest 2V Ordering Provider: Desiree Hay MD PROCEDURE: XR CHEST 2V INDICATIONS: dyspnea TECHNIQUE: 2 views of the chest were acquired. COMPARISON: [facility], , XR CHEST 1V, 01/03/2018, 13:26. FINDINGS: Surgical changes and devices: None. Lungs and pleura: Minimal increased pulmonary vascularity. No pleural e ffusions or pneumothorax. Mediastinum: Mediastinal contours are normal. Heart size is normal. Bones and chest wall: No suspicious bony abnormalities. Soft tissues appear unremarkable. IMPRESSION: Minimal increased pulmonary vacularity. Dictated by: Jaimie Arredondo M.D. on 06/15/2018 at 13:19 Approved by: Jaimie Arredondo M.D. on 06/15/2018 at 13:23 Discharge Plan Departure Patient Disposition: Home Clinical Impression: Acute exacerbation of chronic obstructive airways disease, Acute upper respiratory infection Discharge Date/Time: 06/15/18 16:15 Interventions: ED Discharge Assessment Last Done: 06/15/18 16:13 Instructions: DI for Chronic Obstructive Pulmonary Disease, DI for Viral Upper Respiratory Infection -- Adult Activity Restrictions/Additional Instructions: Your x-ray looks good. Please take the prednisone, as directed, along with your inhalers and nebulizers at home. You have been given a prescription for antibiotics, which you do not need to take at this time. However, if you begin running fevers and coughing up thick yellow sputum, you should start the antibiotics. Prescriptions: New prednisone 20 mg tablet 60 mg PO DAILY Qty: 15 RF: 0 No Action amlodipine 10 MG tablet 10 mg PO DAILY Qty: 0 RF: 0 tramadol 50 MG tablet 100 mg PO Q4H PRN (Reason: pain) Qty: 0 RF: 0 spironolactone 50 MG tablet 50 mg PO DAILY Qty: 0 RF: 0 albuterol sulfate 2.5 MG/3 ML solution for nebulization 3 ml INH PRN PRNQty: 0 RF: 0 atorvastatin 80 MG tablet 80 mg PO BEDTIME Qty: 0 RF: 0 dabigatran etexilate [Pradaxa] 150 MG capsule 150 mg PO BID Qty: 0 RF: 0 [CRANBERRY] PO QPM Qty: 0 RF: 0 [MILK THISTLE] PO QPM Qty: 0 RF: 0 [PROBIOTIC] PO QPM Qty: 0 RF: 0 [TURMERIC] PO QPM Qty: 0 RF: 0 cyanocobalamin (vitamin B-12) [Vitamin B-12] 500 mcg Tablet PO QPM Qty: 0 RF: 0 coenzyme Q10 [Co Q-10] 100 mg Capsule PO QPM Qty: 0 RF: 0 albuterol sulfate [Ventolin HFA] 90 mcg/actuation HFA aerosol inhaler 2 puff Inhalation PRN PRN (Reason: Shortness Of Breath) RF: 0 fluticasone propion-salmeterol [Advair HFA] 230-21 mcg/actuation HFA aerosol inhaler RF: 0 ipratropium-albuterol 0.5 mg-3 mg(2.5 mg base)/3 mL solution for nebulization 3 ml INHALATION Q6-8H PRN (Reason: shortness of breath or wheezing) Qty: 90 RF: 0 valsartan 40 mg tablet 40 mg PO DAILY RF: 0 doxycycline hyclate 100 mg capsule 100 mg PO BID Qty: 14 RF: 0 prednisone 50 mg tablet 50 mg PO DAILY Qty: 5 RF: 0 Referrals: Anna Barkre ARNP [Primary Care Provider] - Stand Alone Forms: Work Release Note
[2018-06-15] MEDS: LORazepam 2 MG/ML SYRINGE 1 MG IV (13:00)
[2018-06-15] MEDS: DEXAMETHASONE 20 MG in SODIUM CHLORIDE 0.9% 50 ML 208 ML IV (13:01)
[2018-06-15] MEDS: SODIUM CHLORIDE 0.9% 1,000 ML 1000 ML IV (13:01)
[2018-06-15 13:11] LABS: Add Manual Diff / Slide Review NO; Basophils Absolute Auto 0 /uL (0-100); Basophils Percent Auto 0.4 % (0-2); Eosinophils Absolute Auto 0 /uL (0-450); Eosinophils Percent Auto 0.7 % (2-4); Hematocrit 44.7 % (36-46); Lymphocytes Absolute Auto 500 /uL (1100-4500); Lymphocytes Percent Auto 7.4 % (25-40); Mean Corpuscular HGB Conc 33.6 % (30-36); Mean Corpuscular Hemoglobin 31.5 PG (26-34); Mean Corpuscular Volume 93.8 fL (80-100); Monocytes Absolute Auto 500 /uL (0-900); Monocytes Percent Auto 7.1 % (3-14); Neutrophils Absolute Auto 5800 /uL (1500-7000); Neutrophils Percent Auto 84.4 % (50-75); Platelet Count 189 X10^3/uL (150-400); Red Blood Cell Count 4.76 X10^6/uL (4.0-5.2); Red Cell Distribution Width 13.5 % (11.6-14.8); White Blood Cell Count 6.8 X10^3/uL (4.5-11.0)
[2018-06-15 13:21] LABS: Alanine Aminotransferase 74 IU/L (9-52); Albumin Globulin Ratio 1.4 (1.0-2.8); Alkaline Phosphatase 98 U/L (38-126); Aspartate Aminotransferase 89 IU/L (14-36); Bilirubin Total 0.5 mg/dL (0.2-1.3); Blood Urea Nitrogen 6 mg/dL (7-17); Carbon Dioxide 26 mmol/L (22-32); Chloride 103 mmol/L (98-107); Estimated Glomerular Filt Rate > 60.0 mL/min (>60); Globulin 2.9 g/dL (1.7-4.1); Glucose 178 mg/dL (80-110); HEMOLYSIS < 15 (0-50); Potassium 3.5 mmol/L (3.4-5.1); Sodium 139 mmol/L (137-145); Total Protein 6.9 g/dL (6.3-8.2)
== END 2018-06-15 16:15 | disposition home or self-care (01) ==
PROVIDERS: Emergency Provider Emergency Medicine; PCP Nurse Practitioner Family
DX: J44.1 Chronic obstructive pulmonary disease with (acute) exacerbation (principal)
CPT/HCPCS: 36591; 71046; 80053; 85025; 94640; 96361; 96365; 96375; 99284; J1100; J2060

== ENCOUNTER 2018-06-17 11:27 | Observation (INO) | payer OTHER, MEDICAID, SELFPAY ==
[2018-06-17] VITALS (12 sets, daily range): BP systolic 119–165; BP diastolic 52–71; PULSE 74–85; RESP 18–36; TEMP 36.4–37.1; O2SAT 90–97; BMI 38.4
--- NOTE | 2018-06-17 12:05 | PC.NURSE ---
Addendum entered by García Guillermo R.N. 06/17/18 12:09: Additional notes: Pt reports has been using Neb treatment about Q4 hrs at home w/o much relief of SOB and c/o deep aches in mid chest Original Note: Pt reports uses o2 by NC at home as needed on 2L but has not been using last 2 years since she did not needed. Pt's RR decreased from 30 to 26 and with O2 by NC pt reports breathing improved a bit
--- NOTE | 2018-06-17 12:10 | DI.RAD.S_ITS ---
PROCEDURE: XR CHEST 1V INDICATIONS: sob, dypsnea TECHNIQUE: One view of the chest was acquired. COMPARISON: [facility], CR, XR CHEST 2V, 06/15/2018, 12:59. FINDINGS: Surgical changes and devices: None. Lungs and pleura: Blunting of left costophrenic angle is seen suggestive of trace left pleural effusion. Mild bone edema is seen with hazy opacity throughout bilateral lung johnson. No definite focal infiltrate. No gross pneumothorax. Mediastinum: Mediastinal contours appear normal. Heart size is enlarged. Bones and chest wall: No suspicious bony lesions. Overlying soft tissues appear unremarkable. IMPRESSION: Cardiomegaly and mild congestion. Mild pulmonary edema. Trace left pleural effusion. No definite focal infiltrate or pneumothorax. Dictated by: Atul Porras M.D. on 06/17/2018 at 12:28 Approved by: Atul Porras M.D. on 06/17/2018 at 12:34
[2018-06-17 12:28] LABS: Hemoglobin 15.1 g/dL (12.0-16.0); Mean Corpuscular HGB Conc 32.7 % (30-36); Mean Corpuscular Hemoglobin 30.9 PG (26-34); Mean Corpuscular Volume 94.5 fL (80-100); Platelet Count 239 X10^3/uL (150-400); Red Blood Cell Count 4.87 X10^6/uL (4.0-5.2); Red Cell Distribution Width 13.8 % (11.6-14.8)
[2018-06-17 12:33] LABS: Alanine Aminotransferase 82 IU/L (9-52); Albumin Globulin Ratio 1.4 (1.0-2.8); Alkaline Phosphatase 115 U/L (38-126); Aspartate Aminotransferase 68 IU/L (14-36); Bilirubin Total 0.3 mg/dL (0.2-1.3); Blood Urea Nitrogen 12 mg/dL (7-17); Calcium 9.4 mg/dL (8.4-10.2); Carbon Dioxide 26 mmol/L (22-32); Chloride 104 mmol/L (98-107); Estimated Glomerular Filt Rate > 60.0 mL/min (>60); Globulin 2.8 g/dL (1.7-4.1); Glucose 188 mg/dL (80-110); HEMOLYSIS < 15 (0-50); Potassium 4.2 mmol/L (3.4-5.1); Sodium 141 mmol/L (137-145); Total Protein 6.8 g/dL (6.3-8.2)
--- NOTE | 2018-06-17 12:48 | ED.SOB ---
HPI - SOB/Dyspnea General Chief Complaint: Shortness of Breath/Dyspnea Stated Complaint: 'Breathing' Time Seen by Provider: 06/17/18 12:08 Source: patient and family () Limitations: no limitations History of Present Illness This is a 63-year-old female comes in with increasing shortness of breath. Patient was here on the 15 of June for COPD exacerbation. She states that she has had increasing shortness of breath. She has had a dry cough has been nonproductive. She has been doing her DuoNeb q.4 hours and has to take her inhaler even to get to the bathroom. She states she can't get all the way to the bathroom without feeling short of breath. She has been on p.o. steroids and received IV steroids when she was here at her initial visit. She has not had any syncope but felt like she might pass out. She has woken up sweaty in the middle of night, she was placed on Zithromax in but she did stop that. She denies any nausea no vomiting, no diarrhea or constipation. No swelling in her lower extremities. She does have a history of PE and is on Pradaxa because of that. There was unknown factors why she developed a pulmonary embolism. She has a history of hypertension, she is post take medication for dyslipidemia. No diabetes. She does smoke about half pack daily. She quit on Wednesday. She does drink about 2 beers nightly as well as shot or 2. She denies any illicit. Anna Barker is her primary care . Related Data Home Medications Medication Instructions Recorded Confirmed amlodipine 10 mg PO DAILY #0 04/02/11 06/17/18 tramadol 100 mg PO Q4H PRN #0 04/02/11 06/17/18 Pradaxa 150 mg PO BID #0 04/23/17 06/17/18 atorvastatin 80 mg PO BEDTIME #0 04/23/17 06/17/18 spironolactone 50 mg PO DAILY #0 04/23/17 06/17/18 [CRANBERRY] 500 mg PO QPM #0 05/28/17 06/17/18 [MILK THISTLE] 100 mg PO QPM #0 05/28/17 06/17/18 [PROBIOTIC] 500 mg PO QPM #0 05/28/17 06/17/18 [TURMERIC] 200 mg PO QPM #0 05/28/17 06/17/18 coenzyme Q10 [Co Q-10] 100 mg PO QPM #0 05/28/17 06/17/18 cyanocobalamin (vitamin B-12) 500 mcg PO QPM #0 05/28/17 06/17/18 [Vitamin B-12] albuterol sulfate [Ventolin HFA] 2 puff INHALATION PRN PRN 01/03/18 06/17/18 fluticasone propion-salmeterol 01/03/18 [Advair HFA] ascorbic acid (vitamin C) [Vitamin 1,000 mg PO DAILY 06/17/18 06/17/18 C] fluticasone propion-salmeterol 2 puff INHALATION BID 06/17/18 06/17/18 [Advair HFA] ipratropium-albuterol 3 ml INHALATION Q4-6H PRN 06/17/18 06/17/18 Previous Rx's Medication Instructions Recorded prednisone 60 mg PO DAILY #15 tab 06/15/18 Allergies Allergy/AdvReac Type Severity Reaction Status Date / Time atenolol [ATENOLOL] Allergy Severe LUNG FILL Verified 06/17/18 11:38 WITH FLUID doxycycline [DOXYCYCLINE] Allergy Severe HIVES Verified 06/17/18 11:38 hydrochlorothiazide Allergy Severe COVERED IN Verified 06/17/18 11:38 [HYDROCHLOROTHIAZIDE] BLISTERS lisinopril [LISINOPRIL] Allergy Severe SEVERE Verified 06/17/18 11:38 COUGH metoprolol [METOPROLOL] Allergy Severe HAIR FELL Verified 06/17/18 11:38 OUT Review of Systems Review of Systems ROS Unobtainable: All systems reviewed & are unremarkable except as noted in HPI and below Constitutional Denies chills, Denies fever(s), Denies lethargy, Reports night sweats and Denies weakness ENT Ears, Nose, Mouth, and Throat: Denies nasal congestion Cardiovascular Reports chest pain (deep ache, no radiation, middle chest), Reports diaphoresis, Denies syncope, Denies rapid heart rate, Denies edema, Denies irregular heart rhythm, Denies leg edema, Denies lightheadedness, Denies palpitations, Reports dyspnea, Reports dyspnea on exertion, Denies orthopnea and Reports other (near syncope) Respiratory Denies change in phlegm color, Denies chest congestion, Reports cough, Denies hemoptysis, Denies excessive phlegm production, Denies pain on inspiration, Denies pain with cough, Reports dyspnea, Reports dyspnea on exertion and Reports wheezing Gastrointestinal Gastrointestinal: Denies abdominal pain, Denies change in bowel habits, Denies diarrhea, Denies nausea and Denies vomiting Genitourinary Denies hematuria, Denies dysuria, Denies flank pain and Denies urinary urgency Musculoskeletal Denies back pain Neurologic Denies syncope and Denies weakness Endocrine Denies palpitations Allergic/Immunologic Reports wheezing PFSH Medical History Hyperlipidemia (Acute) Hypertension (Acute) Pulmonary embolism (Acute) Surgical History No pertinent past surgical history (Acute) Social History Smoking Status: Current every day smoker Social History (Updated 06/17/18 @ 16:06 by Naomi Fortune DO) household members: children Smoking Status: Current every day smoker alcohol intake: current substance use type: does not use Exam Narrative Exam Narrative: GEN: well nourished, well appearing female, alert and oriented x 3, patient appears to be in mild to moderate distress. HEENT: Atraumatic, pupils are equal round reactive to light, extraocular movements are intact, nares are clear, throat is clear without any exudates, erythema, tonsillar enlargement or uvular deviation HEART: Regular rate and rhythm without murmur, clicks, rubs. No carotid bruits, pulses are equal in upper and lower extremities LUNGS:Lungs the ears bilaterally no wheezes, no rales, crackles, chest moves symmetrically, positive for tachypnea no accessory muscle use. Patient speaks in 3-5 word sentences. ABD:bowel sounds normal, soft, non-tender, no guarding, rebound, rigidity, no masses noted, no hepatosplenomegaly :No CVA tenderness MSCL: Non-tender, no muscle atrophy, muscles strength 5/5 upper and lower extremities, full range of motion NEURO:CN 2-12 intact, sensation normal Initial Vital Signs Initial Vital Signs: Vital Signs Temperature 97.5 F L 06/17/18 11:35 Pulse Rate 84 06/17/18 11:35 Respiratory Rate 26 H 06/17/18 11:35 Blood Pressure 165/56 H 06/17/18 11:35 Pulse Oximetry 90 L 06/17/18 11:35 Scores PERC Score Age greater than or equal to 50 years: Yes Heart rate greater than or equal to 100 bpm: No Room Air O2 Sat less than 95%: Yes Unilateral leg swelling: No Recent trauma or surgery: No Hemoptysis: No Prior PE or DVT: Yes Hormone Use: No Total PERC Score: 3 Course Orders Ordered: ED Orders 06/17/18 11:37 EKG-12 Lead Routine 06/17/18 11:50 Complete Blood Count MAN DIFF Stat Comprehensive Metabolic Panel Stat Lactate (Lactic Acid) Stat Partial Thromboplastin Time Stat Prothrombin Time INR Stat Troponin & CK Cardiac Panel Stat 06/17/18 12:08 Consult to Respiratory Therapy Evaluate & Treat 06/17/18 12:10 XR chest 1V Stat 06/17/18 12:24 BNP [B Type Natriuretic Peptide] Stat 06/17/18 13:54 CT angio chest PE protocol Stat 06/17/18 14:36 Lactate 2HR (Lactic Acid Rflx) Stat 06/17/18 16:32 Respiratory Panel (Film Array) Stat 06/17/18 16:51 Arterial Blood Gas Stat 06/17/18 17:57 Consult to Respiratory Therapy Evaluate & Treat Albuterol (Ventolin) 2.5 mg INH RTQ2HR PRN PRN Reason: Shortness Of Breath Or Wheezing Albuterol/Ipratropium (Duoneb) 3 ml INH [id number] [facility] Last Admin: 06/17/18 19:04 Dose: Not Given Discontinued Medications Albuterol/Ipratropium (Duoneb) 3 ml INH NOW ONE Stop: 06/17/18 13:55 Last Admin: 06/17/18 15:53 Dose: 3 ml Albuterol/Ipratropium (Duoneb) 3 ml INH NOW ONE Stop: 06/17/18 15:48 Last Admin: 06/17/18 15:53 Dose: 3 ml Ketorolac Tromethamine (Toradol) 30 mg IV NOW ONE Stop: 06/17/18 13:35 Last Admin: 06/17/18 13:54 Dose: 30 mg Methylprednisolone (Solu-Medrol 125 Mg Vial) 125 mg IV NOW ONE Stop: 06/17/18 15:47 Last Admin: 06/17/18 16:05 Dose: 125 mg Vital Signs - 8 hr 06/17/18 11:45 06/17/18 12:04 06/17/18 12:45 Temperature Pulse Rate 79 74 76 Respiratory Rate 28 H 26 H 29 H Blood Pressure Blood Pressure [Left Arm] 134/53 L 127/59 L Pulse Oximetry 92 93 93 06/17/18 13:00 06/17/18 14:19 06/17/18 15:00 Temperature Pulse Rate 78 75 78 Respiratory Rate 22 27 H 28 H Blood Pressure Blood Pressure [Left Arm] 119/60 140/61 130/59 L Pulse Oximetry 93 97 93 06/17/18 15:53 06/17/18 16:00 06/17/18 17:00 Temperature Pulse Rate 83 82 85 Respiratory Rate 18 22 22 Blood Pressure Blood Pressure [Left Arm] 127/53 L 130/52 L Pulse Oximetry 94 94 95 06/17/18 17:39 Temperature 98.5 F Pulse Rate 81 Respiratory Rate 36 H Blood Pressure 137/65 Blood Pressure [Left Arm] Pulse Oximetry 94 MDM - SOB/Dyspnea Lab Data Attestation: I reviewed the patient's lab results. Result diagrams: 06/17/18 11:50 06/17/18 11:50 Lab Results 06/17/18 06/17/18 06/17/18 Range/Units 11:50 11:50 11:50 WBC 10.0 (4.5-11.0) X10^3/uL RBC 4.87 (4.0-5.2) X10^6/uL Hgb 15.1 (12.0-16.0) g/dL Hct 46.0 (36-46) % MCV 94.5 (80-100) fL MCH 30.9 (26-34) PG MCHC 32.7 (30-36) % RDW 13.8 (11.6-14.8) % Plt Count 239 (150-400) X10^3/uL Total Counted 100 Seg Neutrophils % 83.0 H (38-70) % Band Neutrophils % 7.0 (3-7) % Lymphocytes % (Manual) 7.0 L (25-45) % Atypical Lymphs % 1.0 H ( - 0) % Monocytes % (Manual) 2.0 (2-11) % Neutrophils # (Manual) 9000 H (9630-0457) /uL RBC Morphology Normal morphology PT 12.0 (10.1-12.7) SECONDS INR 1.0 (0.9-1.3) APTT (26.4-36.2) SECONDS ABG pH (7.35-7.45) ABG pCO2 (35-45) mmHg ABG pO2 (80-100) mmHg ABG HCO3 (22-26) mmol/L ABG Total CO2 (21-31) mmol/L ABG O2 Saturation (95-100) % ABG Base Excess (-2-2) mmol/L FiO2 Sodium 141 (137-145) mmol/L Potassium 4.2 (3.4-5.1) mmol/L Chloride 104 (98-107) mmol/L Carbon Dioxide 26 (22-32) mmol/L BUN 12 (7-17) mg/dL Creatinine 0.60 (0.52-1.04) mg/dL Estimated GFR > 60.0 (>60) mL/min BUN/Creatinine Ratio 20.0 (6-22) Glucose 188 H (80-110) mg/dL Lactate (0.7-2.1) mmol/L Calcium 9.4 (8.4-10.2) mg/dL Total Bilirubin 0.3 (0.2-1.3) mg/dL AST 68 H (14-36) IU/L ALT 82 H (9-52) IU/L Alkaline Phosphatase 115 (38-126) U/L Total Creatine Kinase (30-135) U/L CK-MB (CK-2) (<2.37) ng/mL CK-MB (CK-2) Rel Index (1.5-5.0) % Troponin I (0.01-0.034) ng/mL B-Natriuretic Peptide (<100) Total Protein 6.8 (6.3-8.2) g/dL Albumin 4.0 (3.5-5.0) g/dL Globulin 2.8 (1.7-4.1) g/dL Albumin/Globulin Ratio 1.4 (1.0-2.8) 06/17/18 06/17/18 06/17/18 Range/Units 11:50 11:50 11:50 WBC (4.5-11.0) X10^3/uL RBC (4.0-5.2) X10^6/uL Hgb (12.0-16.0) g/dL Hct (36-46) % MCV (80-100) fL MCH (26-34) PG MCHC (30-36) % RDW (11.6-14.8) % Plt Count (150-400) X10^3/uL Total Counted Seg Neutrophils % (38-70) % Band Neutrophils % (3-7) % Lymphocytes % (Manual) (25-45) % Atypical Lymphs % ( - 0) % Monocytes % (Manual) (2-11) % Neutrophils # (Manual) (5966-8218) /uL RBC Morphology PT (10.1-12.7) SECONDS INR (0.9-1.3) APTT 45 H D (26.4-36.2) SECONDS ABG pH (7.35-7.45) ABG pCO2 (35-45) mmHg ABG pO2 (80-100) mmHg ABG HCO3 (22-26) mmol/L ABG Total CO2 (21-31) mmol/L ABG O2 Saturation (95-100) % ABG Base Excess (-2-2) mmol/L FiO2 Sodium (137-145) mmol/L Potassium (3.4-5.1) mmol/L Chloride (98-107) mmol/L Carbon Dioxide (22-32) mmol/L BUN (7-17) mg/dL Creatinine (0.52-1.04) mg/dL Estimated GFR (>60) mL/min BUN/Creatinine Ratio (6-22) Glucose (80-110) mg/dL Lactate 2.7 H (0.7-2.1) mmol/L Calcium (8.4-10.2) mg/dL Total Bilirubin (0.2-1.3) mg/dL AST (14-36) IU/L ALT (9-52) IU/L Alkaline Phosphatase (38-126) U/L Total Creatine Kinase 107 (30-135) U/L CK-MB (CK-2) 2.05 (<2.37) ng/mL CK-MB (CK-2) Rel Index 1.9 (1.5-5.0) % Troponin I < 0.012 (0.01-0.034) ng/mL B-Natriuretic Peptide (<100) Total Protein (6.3-8.2) g/dL Albumin (3.5-5.0) g/dL Globulin (1.7-4.1) g/dL Albumin/Globulin Ratio (1.0-2.8) 06/17/18 06/17/18 06/17/18 Range/Units 12:24 14:36 16:51 WBC (4.5-11.0) X10^3/uL RBC (4.0-5.2) X10^6/uL Hgb (12.0-16.0) g/dL Hct (36-46) % MCV (80-100) fL MCH (26-34) PG MCHC (30-36) % RDW (11.6-14.8) % Plt Count (150-400) X10^3/uL Total Counted Seg Neutrophils % (38-70) % Band Neutrophils % (3-7) % Lymphocytes % (Manual) (25-45) % Atypical Lymphs % ( - 0) % Monocytes % (Manual) (2-11) % Neutrophils # (Manual) (3029-5423) /uL RBC Morphology PT (10.1-12.7) SECONDS INR (0.9-1.3) APTT (26.4-36.2) SECONDS ABG pH 7.37 (7.35-7.45) ABG pCO2 36.8 (35-45) mmHg ABG pO2 67 L (80-100) mmHg ABG HCO3 21 L (22-26) mmol/L ABG Total CO2 22 (21-31) mmol/L ABG O2 Saturation 92 L (95-100) % ABG Base Excess -4.0 L (-2-2) mmol/L FiO2 21 Sodium (137-145) mmol/L Potassium (3.4-5.1) mmol/L Chloride (98-107) mmol/L Carbon Dioxide (22-32) mmol/L BUN (7-17) mg/dL Creatinine (0.52-1.04) mg/dL Estimated GFR (>60) mL/min BUN/Creatinine Ratio (6-22) Glucose (80-110) mg/dL Lactate 3.5 H (0.7-2.1) mmol/L Calcium (8.4-10.2) mg/dL Total Bilirubin (0.2-1.3) mg/dL AST (14-36) IU/L ALT (9-52) IU/L Alkaline Phosphatase (38-126) U/L Total Creatine Kinase (30-135) U/L CK-MB (CK-2) (<2.37) ng/mL CK-MB (CK-2) Rel Index (1.5-5.0) % Troponin I (0.01-0.034) ng/mL B-Natriuretic Peptide < 100 (<100) Total Protein (6.3-8.2) g/dL Albumin (3.5-5.0) g/dL Globulin (1.7-4.1) g/dL Albumin/Globulin Ratio (1.0-2.8) ABG Data ABG results: ABG shows a pH of 7.37, pCO2 of 36 with a PaO2 of 67 and a bicarb of 21. Attestation: I personally reviewed and interpreted this ABG as follows: Interpretation: Patient has a normal pH CO2 is in normal range PaO2 is 67 which is still normal, bicarb is slightly low at 21. Imaging Data CT scan - chest: Radiologist's impression: Hermila Calderón K 63 F 1955 [place] [address] CT Scan Report Signed Patient: Hermila Calderón KMR#: [id number] : 8Acct:[id number] Age/Sex: 63 / FDate of Service: 06/17/18 Loc: ED Accession Number: [id number] Procedure: CT angio chest PE protocol Ordering Provider: Naomi Fortune D.O. PROCEDURE: CT ANGIO CHEST PE PROTOCOL INDICATIONS: copd not improving, hx of PE in past. TECHNIQUE: After the administration of intravenous contrast, 2 mm thick sections acquired from the pulmonary apices to the posterior costophrenic angles. 3-dimensional maximum intensity projection (MIP) coronal and sagittal reformats were then acquired through the thorax. For radiation dose reduction, the following was used: automated exposure control, adjustment of mA and/or kV according to patient size. COMPARISON: None. FINDINGS: Image quality: Excellent. Pulmonary arteries: Evaluation limited by suboptimal contrast opacification of the pulmonary arteries. The pulmonary arteries are normal in size, and demonstrate no intraluminal filling defects to suggest central pulmonary embolism. Evaluation of distal segmental and subsegmental branches is limited by suboptimal contrast opacification. Lungs and pleura: There is mild linear scarring and atelectasis in the lung bases. No acute consolidation. There are small clustered ground glass nodules with a centrilobular distribution bilaterally with a peripheral predominance. No pleural effusions or pneumothorax. Central and peripheral airways are patent. Mediastinum: Heart size is normal, without pericardial effusion. No mediastinal or hilar adenopathy. Thoracic aorta is normal in caliber and enhancement. Esophagus is normal in caliber, without hiatal hernia. Bones and chest wall: No suspicious bony lesions. Ribs and thoracic spine appear intact throughout. Thyroid gland demonstrates no definite discrete nodule with evaluation limited by streak artifact. No axillary or supraclavicular adenopathy. Abdomen: Visualized upper abdomen demonstrates small foci of calcifications within the spleen consistent with sequelae of old granulomatous disease. IMPRESSION: 1. No evidence of central pulmonary embolism to the level of the proximal segmental pulmonary arteries. Evaluation of more distal branches limited by suboptimal contrast opacification. 2. Bilateral small clustered ce the ntrilobular groundglass nodules likely represent a mild atypical infection or an inflammatory process such as an exposure pneumoconiosis. Dictated by: Lui Cornell M.D. on 06/17/2018 at 14:22 Approved by: Lui Cornell M.D. on 06/17/2018 at 14:27 Chest x-ray: Radiologist's impression: [address] [address] XRay Report Signed Patient: Hermila Calderón KMR#: [id number] : 8Acct:[id number] Age/Sex: 63 / FDate of Service: 06/17/18 Loc: ED Accession Number: [id number] Procedure: XR chest 1V Ordering Provider: Naomi Fortune D.O. PROCEDURE: XR CHEST 1V INDICATIONS: sob, dypsnea TECHNIQUE: One view of the chest was acquired. COMPARISON: [facility], CR, XR CHEST 2V, 06/15/2018, 12:59. FINDINGS: Surgical changes and devices: None. Lungs and pleura: Blunting of left costophrenic angle is seen suggestive of trace left pleural effusion. Mild bone edema is seen with hazy opacity throughout bilateral lung johnson. No definite focal infiltrate. No gross pneumothorax. Mediastinum: Mediastinal contours appear normal. Heart size is enlarged. Bones and chest wall: No suspicious bony lesions. Overlying soft tissues appear unremarkable. IMPRESSION: Cardiomegaly and mild congestion. Mild pulmonary edema. Trace left pleural effusion. No definite focal infiltrate or pneumothorax. Dictated by: Atul Porras M.D. on 06/17/2018 at 12:28 Approved by: Atul Porras M.D. on 06/17/2018 at 12:34 ECG Data Attestation: I personally reviewed and interpreted this ECG as follows: Interpretation: Sinus rhythm occasional PVC. Rate of 76. One hundred forty-four QRS 88 QTC of 399. No ST elevation depression appreciated. MDM Narrative Medical decision making narrative: Patient comes in with complaining of continuing shortness of breath. She was slightly hypoxic at 90% on arrival she improved with nasal cannula. She has continued to sleep in tachypneic in the high 20s. She has not been tachycardic. Patient does smoke and suspected COPD. She was discharged with nebs as well as oral steroids on the and has not been improving. Discussed with patient we did PE scan which was negative based on her past medical history of a pulmonary embolism with unknown cause, it shows some changes consistent with possible atypical pneumonia versus inflammatory process such as an exposure. Patient's lactate is rising with time. Was elevated 2.7 is now 3.5 suggesting patient is working harder with time. She is given Solu-Medrol, multiple nebs. Spoke with Dr. Fall who accepts, she does ask for ABG and a call back. As well as a respiratory panel. Discharge Plan Departure Patient Disposition: Admitted as Observation Clinical Impression: Acute exacerbation of chronic obstructive pulmonary disease (COPD), Atypical pneumonia Discharge Date/Time: 06/17/18 17:21 Interventions: ED Discharge Assessment Last Done: 06/17/18 17:21 Admit Date/Time: 06/17/18 16:43 Admit Provider: Skye Fall
[2018-06-17 12:49] LABS: Lactate (Lactic Acid) 2.7 mmol/L (0.7-2.1)
[2018-06-17 12:58] LABS: Neutrophils Absolute Manual 9000 /uL (3000-5900); Total Cells Counted 100
[2018-06-17 12:59] LABS: RBC Morphology Normal Morphology
[2018-06-17 13:20] LABS: B Type Natriuretic Peptide < 100 (<100)
--- NOTE | 2018-06-17 13:33 | PC.NURSE ---
pt refused to use bedside commode. Pt ambulated independnelty to BR
[2018-06-17 13:47] LABS: PTT Partial Thromboplastin Tim 45 SECONDS (26.4-36.2)
[2018-06-17 13:53] LABS: Creatine Kinase 107 U/L (30-135)
[2018-06-17] MEDS: KETOROLAC 60 MG/2 ML VIAL 30 MG IV (13:54)
--- NOTE | 2018-06-17 13:55 | ED_ITS ---
HPI - SOB/Dyspnea General Chief Complaint: Shortness of Breath/Dyspnea Stated Complaint: 'Breathing' Time Seen by Provider: 06/17/18 12:08 Source: patient and family () Limitations: no limitations History of Present Illness This is a 63-year-old female comes in with increasing shortness of breath. Patient was here on the 15 of June for COPD exacerbation. She states that she has had increasing shortness of breath. She has had a dry cough has been no nproductive. She has been doing her DuoNeb q.4 hours and has to take her inhaler even to get to the bathroom. She states she can't get all the way to the bathroom without feeling short of breath. She has been on p.o. steroids and received IV steroids when she was here at her initial visit. She has not had any syncope but felt like she might pass out. She has woken up sweaty in the middle of night, she was placed on Zithromax in but she did stop that. She denies any nausea no vomiting, no diarrhea or constipation. No swelling in her lower extremities. She does have a history of PE and is on Pradaxa because of that. There was unknown factors why she developed a pulmonary embolism. She has a history of hypertension, she is post take medication for dyslipidemia. No diabetes. She does smoke about half pack daily. She quit on Wednesday. She does drink about 2 beers nightly as well as shot or 2. She denies any illicit. Anna Barker is her primary care . Related Data Home Medications Medication Instructions Recorded Confirmed amlodipine 10 mg PO DAILY #0 04/02/11 06/17/18 tramadol 100 mg PO Q4H PRN #0 04/02/11 06/17/18 Pradaxa 150 mg PO BID #0 04/23/17 06/17/18 atorvastatin 80 mg PO BEDTIME #0 04/23/17 06/17/18 spironolactone 50 mg PO DAILY #0 04/23/17 06/17/18 [CRANBERRY] 500 mg PO QPM #0 05/28/17 06/17/18 [MILK THISTLE] 100 mg PO QPM #0 05/28/17 06/17/18 [PROBIOTIC] 500 mg PO QPM #0 05/28/17 06/17/18 [TURMERIC] 200 mg PO QPM #0 05/28/17 06/17/18 coenzyme Q10 [Co Q-10] 100 mg PO QPM #0 05/28/17 06/17/18 cyanocobalamin (vitamin B-12) 500 mcg PO QPM #0 05/28/17 06/17/18 [Vitamin B-12] albuterol sulfate [Ventolin HFA] 2 puff INHALATION PRN PRN 01/03/18 06/17/18 fluticasone propion-salmeterol 01/03/18 [Advair HFA] ascorbic acid (vitamin C) [Vitamin 1,000 mg PO DAILY 06/17/18 06/17/18 C] fluticasone propion-salmeterol 2 puff INHALATION BID 06/17/18 06/17/18 [Advair HFA] ipratropium-albuterol 3 ml INHALATION Q4-6H PRN 06/17/18 06/17/18 Previous Rx's Medication Instructions Recorded prednisone 60 mg PO DAILY #15 tab 06/15/18 Allergies Allergy/AdvReac Type Severity Reaction Status Date / Time atenolol [ATENOLOL] Allergy Severe LUNG FILL Verified 06/17/18 11:38 WITH FLUID doxycycline [DOXYCYCLINE] Allergy Severe HIVES Verified 06/17/18 11:38 hydrochlorothiazide Allergy Severe COVERED IN Verified 06/17/18 11:38 [HYDROCHLOROTHIAZIDE] BLISTERS lisinopril [LISINOPRIL] Allergy Severe SEVERE Verified 06/17/18 11:38 COUGH metoprolol [METOPROLOL] Allergy Severe HAIR FELL Verified 06/17/18 11:38 OUT Review of Systems Review of Systems ROS Unobtainable: All systems reviewed & are unremarkable except as noted in HPI and below Constitutional Denies chills, Denies fever(s), Denies lethargy, Reports night sweats and Denies weakness ENT Ears, Nose, Mouth, and Throat: Denies nasal congestion Cardiovascular Reports chest pain (deep ache, no radiation, middle chest), Reports diaphoresis, Denies syncope, Denies rapid heart rate, Denies edema, Denies irregular heart rhythm, Denies leg edema, Denies lightheadedness, Denies palpitations, Reports dyspnea, Reports dyspnea on exertion, Denies orthopnea and Reports other (near syncope) Respiratory Denies change in phlegm color, Denies chest congestion, Reports cough, Denies hemoptysis, Denies excessive phlegm production, Denies pain on inspiration, Denies pain with cough, Reports dyspnea, Reports dyspnea on exertion and Reports wheezing Gastrointestinal Gastrointestinal: Denies abdominal pain, Denies change in bowel habits, Denies diarrhea, Denies nausea and Denies vomiting Genitourinary Denies hematuria, Denies dysuria, Denies flank pain and Denies urinary urgency Musculoskeletal Denies back pain Neurologic Denies syncope and Denies weakness Endocrine Denies palpitations Allergic/Immunologic Reports wheezing PFSH Medical History Hyperlipidemia (Acute) Hypertension (Acute) Pulmonary embolism (Acute) Surgical History No pertinent past surgical history (Acute) Social History Smoking Status: Current every day smoker Social History (Updated 06/17/18 @ 16:06 by Naomi Fortune DO) household members: children Smoking Status: Current every day smoker alcohol intake: current substance use type: does not use Exam Narrative Exam Narrative: GEN: well nourished, well appearing female, alert and oriented x 3, patient appears to be in mild to moderate distress. HEENT: Atraumatic, pupils are equal round reactive to light, extraocular movements are intact, nares are clear, throat is clear without any exudates, erythema, tonsillar enlargement or uvular deviation HEART: Regular rate and rhythm without murmur, clicks, rubs. No carotid bruits, pulses are equal in upper and lower extremities LUNGS:Lungs the ears bilaterally no wheezes, no rales, crackles, chest moves symmetrically, positive for tachypnea no accessory muscle use. Patient speaks in 3-5 word sentences. ABD:bowel sounds normal, soft, non-tender, no guarding, rebound, rigidity, no masses noted, no hepatosplenomegaly :No CVA tenderness MSCL: Non-tender, no muscle atrophy, muscles strength 5/5 upper and lower extrem ities, full range of motion NEURO:CN 2-12 intact, sensation normal Initial Vital Signs Initial Vital Signs: Vital Signs Temperature 97.5 F L 06/17/18 11:35 Pulse Rate 84 06/17/18 11:35 Respiratory Rate 26 H 06/17/18 11:35 Blood Pressure 165/56 H 06/17/18 11:35 Pulse Oximetry 90 L 06/17/18 11:35 Scores PERC Score Age greater than or equal to 50 years: Yes Heart rate greater than or equal to 100 bpm: No Room Air O2 Sat less than 95%: Yes Unilateral leg swelling: No Recent trauma or surgery: No Hemoptysis: No Prior PE or DVT: Yes Hormone Use: No Total PERC Score: 3 Course Orders Ordered: ED Orders 06/17/18 11:37 EKG-12 Lead Routine 06/17/18 11:50 Complete Blood Count MAN DIFF Stat Comprehensive Metabolic Panel Stat Lactate (Lactic Acid) Stat Partial Thromboplastin Time Stat Prothrombin Time INR Stat Troponin & CK Cardiac Panel Stat 06/17/18 12:08 Consult to Respiratory Therapy Evaluate & Treat 06/17/18 12:10 XR chest 1V Stat 06/17/18 12:24 BNP [B Type Natriuretic Peptide] Stat 06/17/18 13:54 CT angio chest PE protocol Stat 06/17/18 14:36 Lactate 2HR (Lactic Acid Rflx) Stat 06/17/18 16:32 Respiratory Panel (Film Array) Stat 06/17/18 16:51 Arterial Blood Gas Stat 06/17/18 17:57 Consult to Respiratory Therapy Evaluate & Treat Albuterol (Ventolin) 2.5 mg INH RTQ2HR PRN PRN Reason: Shortness Of Breath Or Wheezing Albuterol/Ipratropium (Duoneb) 3 ml INH [id number] Last Admin: 06/17/18 19:04 Dose: Not Given Discontinued Medications Albuterol/Ipratropium (Duoneb) 3 ml INH NOW ONE Stop: 06/17/18 13:55 Last Admin: 06/17/18 15:53 Dose: 3 ml Albuterol/Ipratropium (Duoneb) 3 ml INH NOW ONE Stop: 06/17/18 15:48 Last Admin: 06/17/18 15:53 Dose: 3 ml Ketorolac Tromethamine (Toradol) 30 mg IV NOW ONE Stop: 06/17/18 13:35 Last Admin: 06/17/18 13:54 Dose: 30 mg Methylprednisolone (Solu-Medrol 125 Mg Vial) 125 mg IV NOW ONE Stop: 06/17/18 15:47 Last Admin: 06/17/18 16:05 Dose: 125 mg Vital Signs - 8 hr 06/17/18 11:45 06/17/18 12:04 06/17/18 12:45 Temperature Pulse Rate 79 74 76 Respiratory Rate 28 H 26 H 29 H Blood Pressure Blood Pressure [Left Arm] 134/53 L 127/59 L Pulse Oximetry 92 93 93 06/17/18 13:00 06/17/18 14:19 06/17/18 15:00 Temperature Pulse Rate 78 75 78 Respiratory Rate 22 27 H 28 H Blood Pressure Blood Pressure [Left Arm] 119/60 140/61 130/59 L Pulse Oximetry 93 97 93 06/17/18 15:53 06/17/18 16:00 06/17/18 17:00 Temperature Pulse Rate 83 82 85 Respiratory Rate 18 22 22 Blood Pressure Blood Pressure [Left Arm] 127/53 L 130/52 L Pulse Oximetry 94 94 95 06/17/18 17:39 Temperature 98.5 F Pulse Rate 81 Respiratory Rate 36 H Blood Pressure 137/65 Blood Pressure [Left Arm] Pulse Oximetry 94 MDM - SOB/Dyspnea Lab Data Attestation: I reviewed the patient's lab results. Result diagrams: 06/17/18 11:50 06/17/18 11:50 Lab Results 06/17/18 06/17/18 06/17/18 Range/Units 11:50 11:50 11:50 WBC 10.0 (4.5-11.0) X10^3/uL RBC 4.87 (4.0-5.2) X10^6/uL Hgb 15.1 (12.0-16.0) g/dL Hct 46.0 (36-46) % MCV 94.5 (80-100) fL MCH 30.9 (26-34) PG MCHC 32.7 (30-36) % RDW 13.8 (11.6-14.8) % Plt Count 239 (150-400) X10^3/uL Total Counted 100 Seg Neutrophils % 83.0 H (38-70) % Band Neutrophils % 7.0 (3-7) % Lymphocytes % (Manual) 7.0 L (25-45) % Atypical Lymphs % 1.0 H ( - 0) % Monocytes % (Manual) 2.0 (2-11) % Neutrophils # (Manual) 9000 H (8752-1955) /uL RBC Morphology Normal morphology PT 12.0 (10.1-12.7) SECONDS INR 1.0 (0.9-1.3) APTT (26.4-36.2) SECONDS ABG pH (7.35-7.45) ABG pCO2 (35-45) mmHg ABG pO2 (80-100) mmHg ABG HCO3 (22-26) mmol/L ABG Total CO2 (21-31) mmol/L ABG O2 Saturation (95-100) % ABG Base Excess (-2-2) mmol/L FiO2 Sodium 141 (137-145) mmol/L Potassium 4.2 (3.4-5.1) mmol/L Chloride 104 (98-107) mmol/L Carbon Dioxide 26 (22-32) mmol/L BUN 12 (7-17) mg/dL Creatinine 0.60 (0.52-1.04) mg/dL Estimated GFR > 60.0 (>60) mL/min BUN/Creatinine Ratio 20.0 (6-22) Glucose 188 H (80-110) mg/dL Lactate (0.7-2.1) mmol/L Calcium 9.4 (8.4-10.2) mg/dL Total Bilirubin 0.3 (0.2-1.3) mg/dL AST 68 H (14-36) IU/L ALT 82 H (9-52) IU/L Alkaline Phosphatase 115 (38-126) U/L Total Creatine Kinase (30-135) U/L CK-MB (CK-2) (<2.37) ng/mL CK-MB (CK-2) Rel Index (1.5-5.0) % Troponin I (0.01-0.034) ng/mL B-Natriuretic Peptide (<100) Total Protein 6.8 (6.3-8.2) g/dL Albumin 4.0 (3.5-5.0) g/dL Globulin 2.8 (1.7-4.1) g/dL Albumin/Globulin Ratio 1.4 (1.0-2.8) 06/17/18 06/17/18 06/17/18 Range/Units 11:50 11:50 11:50 WBC (4.5-11.0) X10^3/uL RBC (4.0-5.2) X10^6/uL Hgb (12.0-16.0) g/dL Hct (36-46) % MCV (80-100) fL MCH (26-34) PG MCHC (30-36) % RDW (11.6-14.8) % Plt Count (150-400) X10^3/uL Total Counted Seg Neutrophils % (38-70) % Band Neutrophils % (3-7) % Lymphocytes % (Manual) (25-45) % Atypical Lymphs % ( - 0) % Monocytes % (Manual) (2-11) % Neutrophils # (Manual) (0708-5749) /uL RBC Morphology PT (10.1-12.7) SECONDS INR (0.9-1.3) APTT 45 H D (26.4-36.2) SECONDS ABG pH (7.35-7.45) ABG pCO2 (35-45) mmHg ABG pO2 (80-100) mmHg ABG HCO3 (22-26) mmol/L ABG Total CO2 (21-31) mmol/L ABG O2 Saturation (95-100) % ABG Base Excess (-2-2) mmol/L FiO2 Sodium (137-145) mmol/L Potassium (3.4-5.1) mmol/L Chloride (98-107) mmol/L Carbon Dioxide (22-32) mmol/L BUN (7-17) mg/dL Creatinine (0.52-1.04) mg/dL Estimated GFR (>60) mL/min BUN/Creatinine Ratio (6-22) Glucose (80-110) mg/dL Lactate 2.7 H (0.7-2.1) mmol/L Calcium (8.4-10.2) mg/dL Total Bilirubin (0.2-1.3) mg/dL AST (14-36) IU/L ALT (9-52) IU/L Alkaline Phosphatase (38-126) U/L Total Creatine Kinase 107 (30-135) U/L CK-MB (CK-2) 2.05 (<2.37) ng/mL CK-MB (CK-2) Rel Index 1.9 (1.5-5.0) % Troponin I < 0.012 (0.01-0.034) ng/mL B-Natriuretic Peptide (<100) Total Protein (6.3-8.2) g/dL Albumin (3.5-5.0) g/dL Globulin (1.7-4.1) g/dL Albumin/Globulin Ratio (1.0-2.8) 06/17/18 06/17/18 06/17/18 Range/Units 12:24 14:36 16:51 WBC (4.5-11.0) X10^3/uL RBC (4.0-5.2) X10^6/uL Hgb (12.0-16.0) g/dL Hct (36-46) % MCV (80-100) fL MCH (26-34) PG MCHC (30-36) % RDW (11.6-14.8) % Plt Count (150-400) X10^3/uL Total Counted Seg Neutrophils % (38-70) % Band Neutrophils % (3-7) % Lymphocytes % (Manual) (25-45) % Atypical Lymphs % ( - 0) % Monocytes % (Manual) (2-11) % Neutrophils # (Manual) (3908-0274) /uL RBC Morphology PT (10.1-12.7) SECONDS INR (0.9-1.3) APTT (26.4-36.2) SECONDS ABG pH 7.37 (7.35-7.45) ABG pCO2 36.8 (35-45) mmHg ABG pO2 67 L (80-100) mmHg ABG HCO3 21 L (22-26) mmol/L ABG Total CO2 22 (21-31) mmol/L ABG O2 Saturation 92 L (95-100) % ABG Base Excess -4.0 L (-2-2) mmol/L FiO2 21 Sodium (137-145) mmol/L Potassium (3.4-5.1) mmol/L Chloride (98-107) mmol/L Carbon Dioxide (22-32) mmol/L BUN (7-17) mg/dL Creatinine (0.52-1.04) mg/dL Estimated GFR (>60) mL/min BUN/Creatinine Ratio (6-22) Glucose (80-110) mg/dL Lactate 3.5 H (0.7-2.1) mmol/L Calcium (8.4-10.2) mg/dL Total Bilirubin (0.2-1.3) mg/dL AST (14-36) IU/L ALT (9-52) IU/L Alkaline Phosphatase (38-126) U/L Total Creatine Kinase (30-135) U/L CK-MB (CK-2) (<2.37) ng/mL CK-MB (CK-2) Rel Index (1.5-5.0) % Troponin I (0.01-0.034) ng/mL B-Natriuretic Peptide < 100 (<100) Total Protein (6.3-8.2) g/dL Albumin (3.5-5.0) g/dL Globulin (1.7-4.1) g/dL Albumin/Globulin Ratio (1.0-2.8) ABG Data ABG results: ABG shows a pH of 7.37, pCO2 of 36 with a PaO2 of 67 and a bicarb of 21. Attestation: I personally reviewed and interpreted this ABG as follows: Interpretation: Patient has a normal pH CO2 is in normal range PaO2 is 67 which is still normal, bicarb is slightly low at 21. Imaging Data CT scan - chest: Radiologist's impression: Hermila Calderón K 63 F 1955 [place] [address] CT Scan Report Signed Patient: Hermila Calderón KMR#: [id number] : 8Acct:[id number] Age/Sex: 63 / FDate of Service: 06/17/18 Loc: ED Accession Number: [id number] Procedure: CT angio chest PE protocol Ordering Provider: Naomi Fortune D.O. PROCEDURE: CT ANGIO CHEST PE PROTOCOL INDICATIONS: copd not improving, hx of PE in past. TECHNIQUE: After the administration of intravenous contrast, 2 mm thick sections acquired from the pulmonary apices to the posterior costophrenic angles. 3-dimensional maximum intensity projection (MIP) coronal and sagittal reformats were then acquired through the thorax. For radiation dose reduction, the following was used: automated exposure control, adjustment of mA and/or kV according to patient size. COMPARISON: None. FINDINGS: Image quality: Excellent. Pulmonary arteries: Evaluation limited by suboptimal contrast opacification of the pulmonary arteries. The pulmonary arteries are normal in size, and demonstrate no intraluminal filling defects to suggest central pulmonary embolism. Evaluation of distal segmental and subsegmental branches is limited by suboptimal contrast opacification. Lungs and pleura: There is mild linear scarring and atelectasis in the lung bases. No acute consolidation. There are small clustered ground glass nodules with a centrilobular distribution bilaterally with a peripheral predominance. No pleural effusions or pneumothorax. Central and peripheral airways are patent. Mediastinum: Heart size is normal, without pericardial effusion. No mediastinal or hilar adenopathy. Thoracic aorta is normal in caliber and enhancement. Esophagus is normal in caliber, without hiatal hernia. Bones and chest wall: No suspicious bony lesions. Ribs and thoracic spine appear intact throughout. Thyroid gland demonstrates no definite discrete nodule with evaluation limited by streak artifact. No axillary or supraclavicular adenopathy. Abdomen: Visualized upper abdomen demonstrates small foci of calcifications within the spleen consistent with sequelae of old granulomatous disease. IMPRESSION: 1. No evidence of central pulmonary embolism to the level of the proximal se gmental pulmonary arteries. Evaluation of more distal branches limited by suboptimal contrast opacification. 2. Bilateral small clustered ce the ntrilobular groundglass nodules likely represent a mild atypical infection or an inflammatory process such as an exposure pneumoconiosis. Dictated by: Lui Cornell M.D. on 06/17/2018 at 14:22 Approved by: Lui Cornell M.D. on 06/17/2018 at 14:27 Chest x-ray: Radiologist's impression: [address] [address] XRay Report Signed Patient: Hermila Calderón KMR#: [id number] : 8Acct:[id number] Age/Sex: 63 / FDate of Service: 06/17/18 Loc: ED Accession Number: [id number] Procedure: XR chest 1V Ordering Provider: Naomi Fortune D.O. PROCEDURE: XR CHEST 1V INDICATIONS: sob, dypsnea TECHNIQUE: One view of the chest was acquired. COMPARISON: [facility], CR, XR CHEST 2V, 06/15/2018, 12:59. FINDINGS: Surgical changes and devices: None. Lungs and pleura: Blunting of left costophrenic angle is seen suggestive of trace left pleural effusion. Mild bone edema is seen with hazy opacity throughout bilateral lung johnson. No definite focal infiltrate. No gross pneumothorax. Mediastinum: Mediastinal contours appear normal. Heart size is enlarged. Bones and chest wall: No suspicious bony lesions. Overlying soft tissues appear unremarkable. IMPRESSION: Cardiomegaly and mild congestion. Mild pulmonary edema. Trace left pleural effusion. No definite focal infiltrate or pneumothorax. Dictated by: Atul Porras M.D. on 06/17/2018 at 12:28 Approved by: Atul Porras M.D. on 06/17/2018 at 12:34 ECG Data Attestation: I personally reviewed and interpreted this ECG as follows: Interpretation: Sinus rhythm occasional PVC. Rate of 76. One hundred forty- four QRS 88 QTC of 399. No ST elevation depression appreciated. MDM Narrative Medical decision making narrative: Patient comes in with complaining of continuing shortness of breath. She was slightly hypoxic at 90% on arrival she improved with nasal cannula. She has continued to sleep in tachypneic in the high 20s. She has not been tachycardic. Patient does smoke and suspected COPD. She was discharged with nebs as well as oral steroids on the and has not been improving. Discussed with patient we did PE scan which was negative based on her past medical history of a pulmonary embolism with unknown cause, it shows some changes consistent with possible atypical pneumonia versus inflammatory process such as an exposure. Patient's lactate is rising with time. Was elevated 2.7 is now 3.5 suggesting patient is working harder with time. She is given Solu-Medrol, multiple nebs. Spoke with Dr. Fall who accepts, she does ask for ABG and a call back. As well as a respiratory panel. Discharge Plan Departure Patient Disposition: Admitted as Observation Clinical Impression: Acute exacerbation of chronic obstructive pulmonary disease (COPD), Atypical pneumonia Discharge Date/Time: 06/17/18 17:21 Interventions: ED Discharge Assessment Last Done: 06/17/18 17:21 Admit Date/Time: 06/17/18 16:43 Admit Provider: Skye Fall
[2018-06-17 14:05] LABS: Troponin I < 0.012 ng/mL (0.01-0.034)
[2018-06-17 14:08] LABS: CKMB % Relative Index 1.9 % (1.5-5.0); Creatine Kinase MB 2.05 ng/mL (<2.37)
[2018-06-17 14:24] LABS: Reflexed Lactate in 2 Hours Y
[2018-06-17 14:53] LABS: Lactate 2HR (Lactic Acid Rflx) 3.5 mmol/L (0.7-2.1)
--- NOTE | 2018-06-17 15:12 | PC.NURSE ---
Pt offered of neb treatement for frequent coughing and pt state would like to take one now. Informed RT.
[2018-06-17] MEDS: ALBUTEROL/IPRATROPIUM 3 ML AMPUL INH ×2 (15:53)
[2018-06-17] MEDS: methylPREDNISolone 125 MG/2 ML VIAL IV (16:05)
--- NOTE | 2018-06-17 17:00 | PC.NURSE ---
Pt reports sob and dyspnea with mild exertion, walking from bathroom to bed.
[2018-06-17 17:19] LABS: HCO3 ABG 21 mmol/L (22-26); PCO2 ABG 36.8 mmHg (35-45); PO2 ABG 67 mmHg (80-100); pH ABG 7.37 (7.35-7.45)
[2018-06-17 17:20] LABS: Fractionated Inspired Oxygen 21; Oxygen Saturation ABG 92 % (95-100); TCO2 ABG 22 mmol/L (21-31)
--- NOTE | 2018-06-17 20:58 | PC.ADMIT ---
Admission Note: pt arrived to floor at 1730 this day. Pt alert and oriented. tachypnic. work of breathing high. Pt reports she hasn't been taking her Lipitor because the pill is so big that she is worried it will get stuck in her throat and she will have an asthma attack and won't be able to breathe. Pt reports that if she is sitting she is better. as soon as she gets up to go to the bathroom or anything she gets very short of breath. Pt has been using her inhaler and the duoneb every four hours. Pt states she does not know what is wrong. updated on pt status. Pt given oxygen if she feels that she needs it. encouraged to call if needing assistance. Pt unable to eat dinner d/t it being dry and pt stated she couldn't really swallow it. Pt knows her home meds. is a good historian. pleasant and kind and appreciates staff. Pt self in room despite moderate fall risk pt verbalized that she will call if she needs help. reports that she drinks two beers and has a few shots once she gets home from work. does not use any ambulation assistance at home. works 5 days a week. takes her tramadol before work and mid way through work otherwise she hurts so much she cannot work. pt oriented to room and call jasper. friend, Bhavesh in room, helped with admission. will continue to monitor pt for safety.
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
[2018-06-17] MEDS: DABIGATRAN 75 MG CAPSULE 150 MG PO (22:30)
[2018-06-17] MEDS: ATORVASTATIN 20 MG TABLET 80 MG PO (22:30)
[2018-06-17] MEDS: ACETAMINOPHEN 325 MG TABLET 650 MG PO (22:31)
[2018-06-17] MEDS: SODIUM CHLORIDE 0.9% FLUSH 10 ML IV (22:33)
[2018-06-18] VITALS (12 sets, daily range): BP systolic 135–150; BP diastolic 48–75; PULSE 66–88; RESP 14–24; TEMP 36.3–36.7; O2SAT 88–95
[2018-06-18] MEDS: ALBUTEROL/IPRATROPIUM 3 ML AMPUL INH ×5 (03:27→22:48)
[2018-06-18 04:45] LABS: Adenovirus Not Detected (Not Detect); Coronavirus 229E Not Detected (Not Detect); Coronavirus HKU1 Not Detected (Not Detect); Coronavirus NL 63 Not Detected (Not Detect); Coronavirus OC43 Not Detected (Not Detect); Human Metapneumovirus Not Detected (Not Detect); Human Rhinovirus/Enterovirus Not Detected (Not Detect)
[2018-06-18 04:46] LABS: Bordetella pertussis Not Detected (Not Detect); Chlamydophila pneumoniae Not Detected (Not Detect); Influenza A Detected (Not Detect); Influenza B Not Detected (Not Detect); Mycoplasma pneumoniae Not Detected (Not Detect); Parainfluenza Virus 1 Not Detected (Not Detect); Parainfluenza Virus 2 Not Detected (Not Detect); Parainfluenza Virus 3 Not Detected (Not Detect); Parainfluenza Virus 4 Not Detected (Not Detect); Respiratory Syncytial Virus Not Detected (Not Detect)
--- NOTE | 2018-06-18 05:02 | PC.NURSE ---
Lab called at 0455, Pt is Influenza A positive. Malissa Miguelito was notified, per verbal order we are putting her on Tamiflu w/ A.M. meds and isolation precautions.
[2018-06-18] MEDS: TRAMADOL 50 MG TABLET 100 MG PO (06:08)
[2018-06-18 06:32] LABS: Add Manual Diff / Slide Review NO; Basophils Absolute Auto 0 /uL (0-100); Eosinophils Absolute Auto 0 /uL (0-450); Hemoglobin 14.9 g/dL (12.0-16.0); Lymphocytes Absolute Auto 600 /uL (1100-4500); Monocytes Absolute Auto 500 /uL (0-900)
[2018-06-18 06:43] LABS: Blood Urea Nitrogen 14 mg/dL (7-17); Calcium 9.4 mg/dL (8.4-10.2); Carbon Dioxide 25 mmol/L (22-32); Chloride 101 mmol/L (98-107); Estimated Glomerular Filt Rate > 60.0 mL/min (>60); Glucose 197 mg/dL (80-110); HEMOLYSIS < 15 (0-50); Potassium 4.2 mmol/L (3.4-5.1); Sodium 138 mmol/L (137-145)
[2018-06-18 07:00] LABS: Basophils Percent Auto 0.1 % (0-2); Hematocrit 44.8 % (36-46); Lymphocytes Percent Auto 8.7 % (25-40); Mean Corpuscular HGB Conc 33.3 % (30-36); Mean Corpuscular Hemoglobin 31.1 PG (26-34); Mean Corpuscular Volume 93.4 fL (80-100); Monocytes Percent Auto 6.7 % (3-14); Neutrophils Absolute Auto 5900 /uL (1500-7000); Neutrophils Percent Auto 84.5 % (50-75); Platelet Count 264 X10^3/uL (150-400); Red Blood Cell Count 4.79 X10^6/uL (4.0-5.2); Red Cell Distribution Width 13.8 % (11.6-14.8)
[2018-06-18] MEDS: CODEINE/ACETAMINOPHEN 30/300 TABLET 1 TAB PO ×3 (07:41→18:56)
[2018-06-18] MEDS: DABIGATRAN 75 MG CAPSULE 150 MG PO ×2 (08:45→21:49)
[2018-06-18] MEDS: AMLODIPINE 5 MG TABLET 10 MG PO (08:45)
[2018-06-18] MEDS: OSELTAMIVIR 75 MG CAPSULE PO ×2 (08:45→21:50)
[2018-06-18] MEDS: SODIUM CHLORIDE 0.9% FLUSH 10 ML IV ×2 (09:20→21:50)
[2018-06-18] MEDS: predniSONE 20 MG TABLET 40 MG PO (09:20)
--- NOTE | 2018-06-18 09:57 | P.PN_ITS ---
Subjective Date Patient Seen: 06/18/18 Interval history: She is seen today follow up her COPD and influenza A. The CBC and BMP are normal except for a glucose of 197, AST 68, ALT 82. She is breathing better and is less uncomfortable. She does not appear to have a prior diagnosis of diabetes so this hyperglycemia noted since admission will need evaluation. Exam Vital Signs (past 8 hours): - 06/18/18 03:27 06/18/18 04:55 06/18/18 08:01 Temperature 97.8 F 97.5 F L Pulse Rate 69 75 71 Respiratory Rate 20 24 18 Blood Pressure 142/48 H 136/75 Pulse Oximetry 90 L 95 88 L 06/18/18 08:28 Temperature Pulse Rate 70 Respiratory Rate 18 Blood Pressure Pulse Oximetry 92 Fraction of Inspired Oxygen 21 Oxygen Delivery Method Room Air Oxygen Flow Rate 0 Narrative Exam Narrative: On exam she is alert and oriented x3, in no apparent distress. lungs are clear on the right with crackles on the left base. Heart is regular rate and rhythm without murmur. Extremities have no ankle edema. Objective Labs Result Diagrams: 06/18/18 06:05 06/18/18 06:05 Labs: Laboratory Results - last 24 hr 06/17/18 06/17/18 06/17/18 11:50 11:50 11:50 WBC 10.0 RBC 4.87 Hgb 15.1 Hct 46.0 MCV 94.5 MCH 30.9 MCHC 32.7 RDW 13.8 Plt Count 239 Neut % (Auto) Lymph % (Auto) [place] % (Auto) Eos % (Auto) Baso % (Auto) Neut # (Auto) Lymph # (Auto) [place] # (Auto) Eos # (Auto) Baso # (Auto) Total Counted 100 Seg Neutrophils % 83.0 H Band Neutrophils % 7.0 Lymphocytes % (Manual) 7.0 L Atypical Lymphs % 1.0 H Monocytes % (Manual) 2.0 Neutrophils # (Manual) 9000 H RBC Morphology Normal morphology PT 12.0 INR 1.0 APTT ABG pH ABG pCO2 ABG pO2 ABG HCO3 ABG Total CO2 ABG O2 Saturation ABG Base Excess FiO2 Sodium 141 Potassium 4.2 Chloride 104 Carbon Dioxide 26 BUN 12 Creatinine 0.60 Estimated GFR > 60.0 BUN/Creatinine Ratio 20.0 Glucose 188 H Lactate Calcium 9.4 Total Bilirubin 0.3 AST 68 H ALT 82 H Alkaline Phosphatase 115 Total Creatine Kinase CK-MB (CK-2) CK-MB (CK-2) Rel Index Troponin I B-Natriuretic Peptide Total Protein 6.8 Albumin 4.0 Globulin 2.8 Albumin/Globulin Ratio 1.4 Chlamy pneumoniae PCR Adenovirus (PCR) B.parapertussis DNA PCR Coronavirus OC43 (PCR) Coronavirus HKU1 (PCR) Coronavirus 229E (PCR) Coronavirus NL63 (PCR) Human Metapneumovir PCR Influenza Type A (PCR) Influenza Type B (PCR) M. pneumoniae (PCR) Parainfluenza 1 (PCR) Parainfluenza 2 (PCR) Parainfluenza 3 (PCR) Parainfluenza 4 (PCR) RSV (PCR) Entero/Rhino (PCR) 06/17/18 06/17/18 06/17/18 11:50 11:50 11:50 WBC RBC Hgb Hct MCV MCH MCHC RDW Plt Count Neut % (Auto) Lymph % (Auto) [place] % (Auto) Eos % (Auto) Baso % (Auto) Neut # (Auto) Lymph # (Auto) [place] # (Auto) Eos # (Auto) Baso # (Auto) Total Counted Seg Neutrophils % Band Neutrophils % Lymphocytes % (Manual) Atypical Lymphs % Monocytes % (Manual) Neutrophils # (Manual) RBC Morphology PT INR APTT 45 H D ABG pH ABG pCO2 ABG pO2 ABG HCO3 ABG Total CO2 ABG O2 Saturation ABG Base Excess FiO2 Sodium Potassium Chloride Carbon Dioxide BUN Creatinine Estimated GFR BUN/Creatinine Ratio Glucose Lactate 2.7 H Calcium Total Bilirubin AST ALT Alkaline Phosphatase Total Creatine Kinase 107 CK-MB (CK-2) 2.05 CK-MB (CK-2) Rel Index 1.9 Troponin I < 0.012 B-Natriuretic Peptide Total Protein Albumin Globulin Albumin/Globulin Ratio Chlamy pneumoniae PCR Adenovirus (PCR) B.parapertussis DNA PCR Coronavirus OC43 (PCR) Coronavirus HKU1 (PCR) Coronavirus 229E (PCR) Coronavirus NL63 (PCR) Human Metapneumovir PCR Influenza Type A (PCR) Influenza Type B (PCR) M. pneumoniae (PCR) Parainfluenza 1 (PCR) Parainfluenza 2 (PCR) Parainfluenza 3 (PCR) Parainfluenza 4 (PCR) RSV (PCR) Entero/Rhino (PCR) 06/17/18 06/17/18 06/17/18 12:24 14:36 16:51 WBC RBC Hgb Hct MCV MCH MCHC RDW Plt Count Neut % (Auto) Lymph % (Auto) [place] % (Auto) Eos % (Auto) Baso % (Auto) Neut # (Auto) Lymph # (Auto) [place] # (Auto) Eos # (Auto) Baso # (Auto) Total Counted Seg Neutrophils % Band Neutrophils % Lymphocytes % (Manual) Atypical Lymphs % Monocytes % (Manual) Neutrophils # (Manual) RBC Morphology PT INR APTT ABG pH 7.37 ABG pCO2 36.8 ABG pO2 67 L ABG HCO3 21 L ABG Total CO2 22 ABG O2 Saturation 92 L ABG Base Excess -4.0 L FiO2 21 Sodium Potassium Chloride Carbon Dioxide BUN Creatinine Estimated GFR BUN/Creatinine Ratio Glucose Lactate 3.5 H Calcium Total Bilirubin AST ALT Alkaline Phosphatase Total Creatine Kinase CK-MB (CK-2) CK-MB (CK-2) Rel Index Troponin I B-Natriuretic Peptide < 100 Total Protein Albumin Globulin Albumin/Globulin Ratio Chlamy pneumoniae PCR Adenovirus (PCR) B.parapertussis DNA PCR Coronavirus OC43 (PCR) Coronavirus HKU1 (PCR) Coronavirus 229E (PCR) Coronavirus NL63 (PCR) Human Metapneumovir PCR Influenza Type A (PCR) Influenza Type B (PCR) M. pneumoniae (PCR) Parainfluenza 1 (PCR) Parainfluenza 2 (PCR) Parainfluenza 3 (PCR) Parainfluenza 4 (PCR) RSV (PCR) Entero/Rhino (PCR) 06/18/18 06/18/18 06/18/18 03:27 06:05 06:05 WBC 7.0 RBC 4.79 Hgb 14.9 Hct 44.8 MCV 93.4 MCH 31.1 MCHC 33.3 RDW 13.8 Plt Count 264 Neut % (Auto) 84.5 H Lymph % (Auto) 8.7 L [place] % (Auto) 6.7 Eos % (Auto) 0.0 L Baso % (Auto) 0.1 Neut # (Auto) 5900 Lymph # (Auto) 600 L [place] # (Auto) 500 Eos # (Auto) 0 Baso # (Auto) 0 Total Counted Seg Neutrophils % Band Neutrophils % Lymphocytes % (Manual) Atypical Lymphs % Monocytes % (Manual) Neutrophils # (Manual) RBC Morphology PT INR APTT ABG pH ABG pCO2 ABG pO2 ABG HCO3 ABG Total CO2 ABG O2 Saturation ABG Base Excess FiO2 Sodium 138 Potassium 4.2 Chloride 101 Carbon Dioxide 25 BUN 14 Creatinine 0.50 L Estimated GFR > 60.0 BUN/Creatinine Ratio 28.0 H Glucose 197 H Lactate Calcium 9.4 Total Bilirubin AST ALT Alkaline Phosphatase Total Creatine Kinase CK-MB (CK-2) CK-MB (CK-2) Rel Index Troponin I B-Natriuretic Peptide Total Protein Albumin Globulin Albumin/Globulin Ratio Chlamy pneumoniae PCR Not detected Adenovirus (PCR) Not detected B.parapertussis DNA PCR Not detected Coronavirus OC43 (PCR) Not detected Coronavirus HKU1 (PCR) Not detected Coronavirus 229E (PCR) Not detected Coronavirus NL63 (PCR) Not detected Human Metapneumovir PCR Not detected Influenza Type A (PCR) Detected H Influenza Type B (PCR) Not detected M. pneumoniae (PCR) Not detected Parainfluenza 1 (PCR) Not detected Parainfluenza 2 (PCR) Not detected Parainfluenza 3 (PCR) Not detected Parainfluenza 4 (PCR) Not detected RSV (PCR) Not detected Entero/Rhino (PCR) Not detected Assessment & Plan Assessment & Plan narrative: Influenza A Tamiflu ordered She appears to be stabilizing, improving quickly Acute on chronic COPD exacerbation present on admission She will have albuterol and DuoNeb nebulizers Q 4 hours alternating. Oral prednisone 40 mg daily, Pulmicort Hyperglycemia No prior history of Diabetes. Some of this effect could be steroid related but it was elevated at 178 on the first ED check before steroids were given. Check A1C and consider starting Metformin. Follow accuchecks. Elevated LFT Possible fatty liver or etc. Not symptomatic Recommend Liver imaging and Viral Hepatitis testing as an outpatient. Pulmonary embolism present on admission She takes Pradaxa 150 mg p.o. b.i.d. for this Essential hypertension Continue home dose of amlodipine 10 mg p.o. daily Hyperlipidemia Continue home dose of atorvastatin 80 mg p.o. at bedtime DVT prophylaxis: Patient will continue her on home regimen of Pradaxa 150 mg p.o. b.i.d. and SCDs as tolerated FEN: IV saline lock, heart healthy diet Activity: Ad cheryl as tolerated Disposition: Likely discharge to home tomorrow Code status: Full Code Quality VTE Deep Vein Thrombosis/Pulmonary Embolism Present on Admission: Yes
[2018-06-18 14:08] LABS: Hemoglobin A1C% w Est Avg Glu 5.8 % (4.0-6.0)
--- NOTE | 2018-06-18 15:58 | CM.DANOTE ---
Discharge Planning/Care Management DCP:assessment: case received, discussed in Team Rounds and met with pt. DROPLET precaution: noted: pt + influenza A as per lab report to RN at 0455 this morning. Pt is a 63 year old female who admitted to care of hospitalist team yesterday evening. Payer: [employer] PCP: Anna Barker/[facility] Pt says she does have oxygen at home but does not currently use it. She does use her home nebulizer and inhalers. Carries dx of chronic COPD. Admission Status: OBS/confirmed by UR NORA Soto. Dr. Santiago states he will likely d/c pt home tomorrow if she continues to show improvement. Pt is up and independent in room. Pt confirms that her friend Bhavesh will be picking her up at d/c. Will follow prn. CM Discharge Assessment Start: 06/18/18 15:56 Freq: Status: Active Protocol: Document 06/18/18 15:56 ITV (Rec: 06/18/18 15:58 ITV [id number]) Discharge Planning Assessment Advance Directives? No History Provided By Patient Medical Record Prior Living Arrangements House Household Members children Comment lives with family, has her own separate area, entrance Independent with ADL's Yes Is patient alert and oriented? Yes Whiteboard Updated in Patient Room with Yes name and ext. # of Primary Care Nurse Practitioner Review Status In Process Next Review Type Continued Stay Review
[2018-06-18] MEDS: BUDESONIDE 0.5 MG/2 ML NEB INH (19:29)
[2018-06-18] MEDS: ATORVASTATIN 20 MG TABLET 80 MG PO (21:49)
[2018-06-19] VITALS (7 sets, daily range): BP systolic 135–141; BP diastolic 65–77; PULSE 63–81; RESP 18–24; TEMP 36.3–36.7; O2SAT 92–95
[2018-06-19] MEDS: CODEINE/ACETAMINOPHEN 30/300 TABLET 1 TAB PO (02:20)
[2018-06-19] MEDS: BUDESONIDE 0.5 MG/2 ML NEB INH (05:49)
[2018-06-19] MEDS: ALBUTEROL/IPRATROPIUM 3 ML AMPUL INH (05:49)
[2018-06-19] MEDS: DABIGATRAN 75 MG CAPSULE 150 MG PO (08:49)
[2018-06-19] MEDS: SODIUM CHLORIDE 0.9% FLUSH 10 ML IV (08:50)
[2018-06-19] MEDS: predniSONE 20 MG TABLET 40 MG PO (08:50)
[2018-06-19] MEDS: AMLODIPINE 5 MG TABLET 10 MG PO (08:50)
[2018-06-19] MEDS: OSELTAMIVIR 75 MG CAPSULE PO (08:50)
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
== END 2018-06-19 12:30 | disposition home or self-care (01) ==
LOC: ED 16:40 → AC 16:44
PROVIDERS: Family Medicine; Nurse Practitioner Family; Admitting Provider Internal Medicine; Emergency Provider Emergency Medicine; PCP Nurse Practitioner Family; Visit Provider Internal Medicine
DX: I26.99 Other pulmonary embolism without acute cor pulmonale (principal); R06.02 Shortness of breath; J44.1 Chronic obstructive pulmonary disease with (acute) exacerbation; I10 Essential (primary) hypertension; E78.5 Hyperlipidemia, unspecified; F17.210 Nicotine dependence, cigarettes, uncomplicated; J10.1 Influenza due to other identified influenza virus with other respiratory manifestations
CPT/HCPCS: 36415; 36591; 36600; 71045; 71275; 80048; 80053; 82550; 82553; 82805; 82962; 83036; 83605; 83880; 84484; 85025; 85610; 85730; 87633; 93005; 93041; 94640; 94667; 94760; 94762; 96374; 96375; 99284; 99285; 99406; G0378; J1885; J2930; Q9967

== ENCOUNTER 2018-10-28 17:42 | Emergency (ER) | payer OTHER, MEDICAID, SELFPAY ==
[2018-06-17 17:30] VITALS: BMI 38.4
[2018-10-28 17:46] VITALS: BP 159/72; PULSE 67; RESP 18; TEMP 36.7; O2SAT 99; BMI 39.3
[2018-10-28] MEDS: CYCLOBENZAPRINE 5 MG TABLET PO (19:37)
[2018-10-28] MEDS: predniSONE 20 MG TABLET 40 MG PO (19:37)
--- NOTE | 2018-10-28 19:50 | ED.BACK ---
HPI - Back Pain/Injury <SAIRA Cain - Last Filed: 10/28/18 23:39> General Chief Complaint: Back Pain/Injury Stated Complaint: hip pain for couple of weeks Time Seen by Provider: 10/28/18 18:55 Source: patient Mode of arrival: ambulatory Limitations: no limitations History of Present Illness HPI Narrative: This is 63-year-old female, smoker, presents to ED with family with chief complain of left-sided low back pain radiating to left buttock and down to ankle. She reports has been using a cane for last 3 weeks. Today the pain was severe that she could not work the whole duration. 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 She denies fever/chills, rash on back, incontinence, weakness to extremities, sensation deficit. She has a history of low back surgery in distant past. She reports her back feels spasming and tight. She does not recall injury or trauma. Patient reports pain is 8/10, constant and sharp. She is currently on blood thinner for PE and she not take additional NSAIDs. She denies any urinary symptoms such as dysuria, urinary frequency, urgency, infection flank pain. Related Data Home Medications Medication Instructions Recorded Confirmed amlodipine 10 mg PO DAILY #0 04/02/11 06/17/18 tramadol 100 mg PO Q4H PRN #0 04/02/11 06/17/18 Pradaxa 150 mg PO BID #0 04/23/17 06/17/18 atorvastatin 80 mg PO BEDTIME #0 04/23/17 06/17/18 spironolactone 50 mg PO DAILY #0 04/23/17 06/17/18 [CRANBERRY] 500 mg PO QPM #0 05/28/17 06/17/18 [MILK THISTLE] 100 mg PO QPM #0 05/28/17 06/17/18 [PROBIOTIC] 500 mg PO QPM #0 05/28/17 06/17/18 [TURMERIC] 200 mg PO QPM #0 05/28/17 06/17/18 coenzyme Q10 [Co Q-10] 100 mg PO QPM #0 05/28/17 06/17/18 cyanocobalamin (vitamin B-12) 500 mcg PO QPM #0 05/28/17 06/17/18 [Vitamin B-12] albuterol sulfate 2 puff INHALATION PRN PRN 01/03/18 06/17/18 ascorbic acid (vitamin C) [Vitamin 1,000 mg PO DAILY 06/17/18 06/17/18 C] fluticasone propion-salmeterol 2 puff INHALATION BID 06/17/18 06/17/18 ipratropium-albuterol 3 ml INHALATION Q4-6H PRN 06/17/18 06/17/18 Previous Rx's Medication Instructions Recorded oseltamivir [Tamiflu] 75 mg PO BID #6 cap 06/19/18 prednisone 20 mg PO DAILY #15 tab 06/19/18 prednisone 20 mg PO DAILY #6 tab 06/19/18 cyclobenzaprine 10 mg PO BEDTIME PRN #5 tab 10/28/18 prednisone 40 mg PO DAILY 5 Days #10 tab 10/28/18 Allergies Allergy/AdvReac Type Severity Reaction Status Date / Time atenolol [ATENOLOL] Allergy Severe LUNG FILL Verified 06/17/18 11:38 WITH FLUID doxycycline [DOXYCYCLINE] Allergy Severe HIVES Verified 06/17/18 11:38 hydrochlorothiazide Allergy Severe COVERED IN Verified 06/17/18 11:38 [HYDROCHLOROTHIAZIDE] BLISTERS lisinopril [LISINOPRIL] Allergy Severe SEVERE Verified 06/17/18 11:38 COUGH metoprolol [METOPROLOL] Allergy Severe HAIR FELL Verified 06/17/18 11:38 OUT Review of Systems <SAIRA Cain - Last Filed: 10/28/18 23:39> Review of Systems General: Denies fever, chills, fatigue, malaise, sweats. HEENT: Denies sinus pain, ear pain, sore throat, difficulty swallowing, dizziness. Respiratory: Denies dyspnea, cough, wheezing, hemoptysis, sputum. Cardiovascular: Denies chest pain, palpitations, orthopnea, edema. Gastrointestinal: Denies nausea, vomiting, abdominal pain, diarrhea, constipation, melena. : Denies dysuria, frequency, incontinence, hematuria, urinary retention. Musculoskeletal: See HPI Skin: Denies rash, skin lesions, or other. Neurologic: Denies weakness, headache, numbness, change in speech, confusion, seizures, incoordination. Psychiatric: No concerning psychosocial issues. 12-point review of systems is negative except for those stated above. PFSH <SAIRA Cain - Last Filed: 10/28/18 23:39> Medical History Lazy eye of left side (Resolved) Hyperlipidemia (Acute) Hypertension (Acute) Pulmonary embolism (Acute) Surgical History History of back surgery (Acute) H/O section (Resolved) Social History (Updated 06/17/18 @ 16:06 by Naomi Fortune DO) household members: children Smoking Status: Current every day smoker alcohol intake: current substance use type: does not use Social History household members: children Smoking Status: Current every day smoker alcohol intake: current substance use type: does not use Exam <SAIRA Cain - Last Filed: 10/28/18 23:39> Narrative Exam Narrative: General appearance: well developed, well nourished, in no acute distress. Head: normocephalic, atraumatic, no scalp lesions, non-tender. Eye: pupil equal, round. EOMI. Nose: nares patent. Oral: mucosa moist. Neck/Thyroid: neck supple, full range of motion, no visible masses. Skin: no suspicious rashes, lesions over visible areas. Warm and dry. Heart: no clubbing, no cyanosis, no edema. Lungs: Breathing even and unlabored. No stridor. No accessory muscles used. Chest: normal shape and expansion. Abdomen: non-obese, non-distended. Neurologic: alert and oriented. Cognitive exam, [employer] DEVEL[employer] and PNS grossly intact on informal exam. Psych: good eye contact, normal affect. Initial Vital Signs Initial Vital Signs: Vital Signs Temperature 98.1 F 10/28/18 17:46 Pulse Rate 67 10/28/18 17:46 Respiratory Rate 18 10/28/18 17:46 Blood Pressure 159/72 H 10/28/18 17:46 Pulse Oximetry 99 10/28/18 17:46 Back/Spine/Pelvis Back: normal to inspection, back tenderness, No CVA tenderness, No erythema, No mass and No warmth Thoracic/Lumbar Spine: thoracic and lumbar spine normal to inspection, surgical scar(s) present (old mid vertical lumbar region), straight leg raise negative bilaterally, bend over test abnormal, pain with thoraco-lumbar ROM, paraspinal tenderness, thoraco-lumbar ROM limited, lumbar spinal tenderness (L side) and other (Limited active range of motion with bending laterally, extending. ) <Louie Dong MD - Last Filed: 10/29/18 02:11> Initial Vital Signs Initial Vital Signs: Vital Signs Temperature 98.1 F 10/28/18 17:46 Pulse Rate 67 10/28/18 17:46 Respiratory Rate 18 10/28/18 17:46 Blood Pressure 159/72 H 10/28/18 17:46 Pulse Oximetry 99 10/28/18 17:46 Course <SAIRA Cain - Last Filed: 10/28/18 23:39> Orders Ordered: Discontinued Medications Cyclobenzaprine HCl (Flexeril) 5 mg PO NOW ONE Stop: 10/28/18 19:22 Last Admin: 10/28/18 19:37 Dose: 5 mg Prednisone (Deltasone) 40 mg PO NOW ONE Stop: 10/28/18 19:22 Last Admin: 10/28/18 19:37 Dose: 40 mg Vital Signs - 8 hr 10/28/18 17:46 Temperature 98.1 F Pulse Rate 67 Respiratory Rate 18 Blood Pressure 159/72 H Pulse Oximetry 99 <Luoie Dong MD - Last Filed: 10/29/18 02:11> Orders Ordered: Discontinued Medications Cyclobenzaprine HCl (Flexeril) 5 mg PO NOW ONE Stop: 10/28/18 19:22 Last Admin: 10/28/18 19:37 Dose: 5 mg Prednisone (Deltasone) 40 mg PO NOW ONE Stop: 10/28/18 19:22 Last Admin: 10/28/18 19:37 Dose: 40 mg Vital Signs - 8 hr 10/28/18 17:46 Temperature 98.1 F Pulse Rate 67 Respiratory Rate 18 Blood Pressure 159/72 H Pulse Oximetry 99 MDM - Back Pain/Injury <SAIRA Cain - Last Filed: 10/28/18 23:39> Differential Diagnosis Differential diagnosis: Likely sciatica and strain of lumbar region Medical Records Attestation: I reviewed the patient's medical records. [facility] Narrative Medical decision making narrative: This is a pleasant 63-year-old female complaining of left-sided low back pain radiating to left buttock and to her ankle for last 3 weeks. She has been using cane for ambulation due to this back pain. She denies saddle anesthesia, incontinence, weakness to lower limb. She does not have constitutional symptoms or urinary symptoms. Patient was requested for urine sample but declined. She reports this pain is not like her previous bladder infection type discomfort. The physical exam is consistent with musculoskeletal low back pain. Her lower leg strength was equal bilateral. She showed limited active range of motion on her low back due to pain. The patient reports today her pain is much worse and was not able to work more than 2 hours. She has been using topical back pain such as icy/hot. She has a distant history of low back surgery in the past. No recent injection to her lower lumbar. Patient is currently on blood thinner for P.E and is not to take additional and states. She was medicated with cyclobenzaprine, prednisone prior DC to home. Patient reports her pain improved and DC to home with same medications. She reports not currently taking any other pain medications including tramadol. Muscle relaxant medication precaution was discussed with the patient. Return precautions were also discussed with patient. Patient was advised to follow up with her primary care physician next week. The patient agree with this with treatment plan and no further questions were expressed at this time. Discharge Plan Departure Patient Disposition: Home Clinical Impression: Low back pain Qualifiers: Chronicity: unspecified Back pain laterality: left Sciatica presence: with sciatica Sciatica laterality: sciatica of left side Qualified Code(s): M54.42 - Lumbago with sciatica, left side Discharge Date/Time: 10/28/18 20:24 Interventions: ED Discharge Assessment Last Done: 10/28/18 20:24 Instructions: DI for Back Pain With Sciatica Activity Restrictions/Additional Instructions: You have been diagnosed with [sciatic low back pain radiating to left buttocks through ankle. You are treated with prednisone,steroids, and muscle relaxant while in ED]. What to do: *Take your medications as directed. Please take prednisone to decrease inflammation on her back and Flexeril for muscle relaxant. Flexeril may cause drowsiness so please take precaution such as not drinking alcohol, not driving, not operating heavy equipment. Prednisone may increase your blood sugar level. *Follow up with your primary care provider in 2-3 days, call for an appointment. Let them know you were seen in the ED and that we asked you to be seen in follow up. *Return to ED if you have any new, worsening, or concerning symptoms, such as [severe pain, fever, chills, tingling/ numbness/ weakness to groin or lower legs, incontinence, rash on her back, chest pain, breathing difficulty, unable to tolerate fluids, any acute concerns]. Prescriptions: New cyclobenzaprine 10 mg tablet 10 mg PO BEDTIME PRN (Reason: muscle spasm) Qty: 5 RF: 0 prednisone 20 mg tablet 40 mg PO DAILY 5 Days Qty: 10 RF: 0 No Action amlodipine 10 MG tablet 10 mg PO DAILY Qty: 0 RF: 0 tramadol 50 MG tablet 100 mg PO Q4H PRN (Reason: pain) Qty: 0 RF: 0 spironolactone 50 MG tablet 50 mg PO DAILY Qty: 0 RF: 0 atorvastatin 80 MG tablet 80 mg PO BEDTIME Qty: 0 RF: 0 Pradaxa 150 MG capsule 150 mg PO BID Qty: 0 RF: 0 [CRANBERRY] capsule 500 mg PO QPM Qty: 0 RF: 0 [MILK THISTLE] capsule 100 mg PO QPM Qty: 0 RF: 0 [PROBIOTIC] tablet 500 mg PO QPM Qty: 0 RF: 0 [TURMERIC] tablet 200 mg PO QPM Qty: 0 RF: 0 cyanocobalamin (vitamin B-12) [Vitamin B-12] 500 mcg Tablet 500 mcg PO QPM Qty: 0 RF: 0 coenzyme Q10 [Co Q-10] 100 mg Capsule 100 mg PO QPM Qty: 0 RF: 0 ascorbic acid (vitamin C) [Vitamin C] 500 mg Tablet,Chewable 1,000 mg PO DAILY RF: 0 ipratropium-albuterol 0.5 mg-3 mg(2.5 mg base)/3 mL solution for nebulization 3 ml INHALATION Q4-6H PRN (Reason: shortness of breath or wheezing) RF: 0 fluticasone propion-salmeterol 230-21 mcg/actuation HFA aerosol inhaler 2 puff Inhalation BID RF: 0 prednisone 20 mg tablet 20 mg PO DAILY Qty: 6 RF: 0 prednisone 20 mg tablet 20 mg PO DAILY Qty: 15 RF: 0 oseltamivir [Tamiflu] 75 mg Capsule 75 mg PO BID Qty: 6 RF: 0 albuterol sulfate 90 mcg/actuation HFA aerosol inhaler 2 puff Inhalation PRN PRN (Reason: Shortness Of Breath) RF: 0 Referrals: Anna Barker ARNP [Primary Care Provider] - <Louie Dong MD - Last Filed: 10/29/18 02:11> Cosign ED Attending Coseagleature Attestation: I was present in the ER at the time this patient's care. I was available consultation or to see the patient directly. I agree with the assessment and treatment plan.
== END 2018-10-28 20:24 | disposition home or self-care (01) ==
PROVIDERS: Emergency Provider Nurse Practitioner Family; PCP Nurse Practitioner Family
DX: M54.42 Lumbago with sciatica, left side (principal)
CPT/HCPCS: 99282

== ENCOUNTER → 2018-12-26 12:41 | Outpatient (CLI) | payer OTHER, MEDICAID, SELFPAY ==
[2018-06-17 17:30] VITALS: BMI 38.4
--- NOTE | 2018-12-26 | DI.RAD.S_ITS ---
PROCEDURE: XR LUMBAR SPINE 2-3V INDICATIONS: lumbar pain TECHNIQUE: 3 views of the lumbar spine were acquired. COMPARISON: None. FINDINGS: Bones: There are 5 [id number] lumbar vertebral bodies. There is 25.5? right convex scoliosis centered at L1. Severe degenerative changes are present at the lumbar spine including intervertebral disc space narrowing, endplate sclerosis, osteophytosis, and facet sclerosis. No definite wedge compression deformity; however evaluation is limited given scoliotic deformity. Soft tissues: Overlying bowel gas pattern is normal. Atheromatous calcifications are present within the abdominal aorta. IMPRESSION: 1. Dextroscoliosis. 2. Severe degenerative change. 3. Aortic atherosclerosis. Dictated by: Misty Moreno M.D. on 12/26/2018 at 16:01 Approved by: Misty Moreno M.D. on 12/26/2018 at 16:02
== END ==
PROVIDERS: PCP Family Medicine; Visit Provider Family Medicine
DX: M54.5 Low back pain (principal); M47.816 Spondylosis without myelopathy or radiculopathy, lumbar region; M41.86 Other forms of scoliosis, lumbar region; I70.0 Atherosclerosis of aorta
CPT/HCPCS: 72100

== ENCOUNTER 2019-04-20 17:07 | Emergency (ER) | payer OTHER, MEDICAID, SELFPAY ==
[2018-06-17 17:30] VITALS: BMI 38.4
[2019-04-20 17:32] VITALS: BP 168/81; PULSE 75; RESP 16; TEMP 37.5; O2SAT 96; BMI 40.2
[2019-04-20] MEDS: predniSONE 20 MG TABLET 40 MG PO (20:35)
[2019-04-20] MEDS: ACETAMINOPHEN 325 MG TABLET 650 MG PO (20:35)
[2019-04-20 20:52] VITALS: BP 176/88; PULSE 80; RESP 17; O2SAT 99
[2019-04-20] MEDS: TRAMADOL 50 MG PREPACK 1 BOTTLE MISC (20:55)
--- NOTE | 2019-04-21 00:49 | ED_ITS ---
HPI - Back Pain/Injury <SAIRA Cain - Last Filed: 04/21/19 01:07> General Chief Complaint: Back Pain/Injury Stated Complaint: States back is tweeked Time Seen by Provider: 04/20/19 19:46 Source: patient Mode of arrival: Ambulatory Limitations: no limitations History of Present Illness HPI Narrative: This is a 64-year-old female, smoker, who presents to ED with her son son with chief complain of bilateral low back pain with muscle tightness to bilateral groin. Patient reports she has chronic discomfort on her back and she thinks she accidentally tweaked her back at work. 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 Patient denies saddle anesthesia, weakness or numbness to to lower limbs, incontinence for stool or urine. Patient takes Pradaxa daily and is not able to take other NSAIDS. Reports pain increases with twisting, flexing her upper body and rotating her upper body and improves using warm pack. Patient reports she can't take medication that cause drowsiness during day since she has to go to work. Patient reports pain is about 7/10 at this time. Patient is requesting an injection to her back to help with her discomfort. Related Data Home Medications Medication Instructions Recorded Confirmed amlodipine 10 mg PO DAILY #0 04/02/11 04/20/19 tramadol 50 mg PO Q4H PRN #0 04/02/11 04/20/19 atorvastatin 80 mg PO BEDTIME #0 04/23/17 04/20/19 spironolactone 50 mg PO DAILY #0 04/23/17 04/20/19 [CRANBERRY] 500 mg PO QPM #0 05/28/17 06/17/18 [MILK THISTLE] 100 mg PO QPM #0 05/28/17 06/17/18 [PROBIOTIC] 500 mg PO QPM #0 05/28/17 06/17/18 [TURMERIC] 200 mg PO QPM #0 05/28/17 06/17/18 coenzyme Q10 [Co Q-10] 100 mg PO QPM #0 05/28/17 06/17/18 cyanocobalamin (vitamin B-12) 500 mcg PO QPM #0 05/28/17 06/17/18 [Vitamin B-12] albuterol sulfate 2 puff INHALATION PRN PRN 10/22/18 02/06/20 ascorbic acid (vitamin C) [Vitamin 1,000 mg PO DAILY 06/17/18 06/17/18 C] fluticasone propion-salmeterol 2 puff INHALATION BID 06/17/18 04/20/19 ipratropium-albuterol 3 ml INHALATION Q4-6H PRN 06/17/18 06/17/18 dabigatran etexilate [Pradaxa] 150 mg PO BID 04/20/19 04/20/19 montelukast 10 mg PO DAILY 04/20/19 04/20/19 Previous Rx's Medication Instructions Recorded oseltamivir [Tamiflu] 75 mg PO BID #6 cap 06/19/18 prednisone 20 mg PO DAILY #15 tab 06/19/18 prednisone 20 mg PO DAILY #6 tab 06/19/18 cyclobenzaprine 10 mg PO BEDTIME PRN #5 tab 10/28/18 cyclobenzaprine 10 mg PO BEDTIME PRN #10 tab 04/20/19 lidocaine 1 patch TOP DAILY #30 each 04/20/19 prednisone 40 mg PO DAILY 5 Days tab 04/20/19 Allergies Allergy/AdvReac Type Severity Reaction Status Date / Time atenolol [ATENOLOL] Allergy Severe LUNG FILL Verified 04/20/19 17:32 WITH FLUID doxycycline [DOXYCYCLINE] Allergy Severe HIVES Verified 04/20/19 17:32 hydrochlorothiazide Allergy Severe COVERED IN Verified 04/20/19 17:32 [HYDROCHLOROTHIAZIDE] BLISTERS lisinopril [LISINOPRIL] Allergy Severe SEVERE Verified 04/20/19 17:32 COUGH metoprolol [METOPROLOL] Allergy Severe HAIR FELL Verified 04/20/19 17:32 OUT Review of Systems <SAIRA Cain - Last Filed: 04/21/19 01:07> Review of Systems Narrative: General: Denies fever, chills, fatigue, malaise, sweats. HEENT: Denies sinus pain, ear pain, sore throat, difficulty swallowing, diz ziness. Respiratory: Denies dyspnea, cough, wheezing, hemoptysis, sputum. Cardiovascular: Denies chest pain, palpitations, orthopnea, edema. Gastrointestinal: Denies nausea, vomiting, abdominal pain, diarrhea, constipation, melena. : Denies dysuria, frequency, incontinence, hematuria, urinary retention. Musculoskeletal: See HPI Skin: Denies rash, skin lesions, or other. Neurologic: Denies weakness, headache, numbness, change in speech, confusion, seizures, incoordination. Psychiatric: No concerning psychosocial issues. 12-point review of systems is negative except for those stated above. Patient History <SAIRA Cain - Last Filed: 04/21/19 01:07> Medical History Back pain (Acute) Hyperlipidemia (Acute) Hypertension (Acute) Lazy eye of left side (Resolved) Pulmonary embolism (Acute) Surgical History H/O section (Resolved) History of back surgery (Acute) Social History household members: children Smoking Status: Current every day smoker alcohol intake: current substance use type: does not use Smoking Status: Current every day smoker alcohol intake frequency: 0-2 drinks per day Substance Use Type: does not use Exam <SAIRA Cain - Last Filed: 04/21/19 01:07> Narrative Exam Narrative: General appearance: well developed, well nourished, in no acute distress. Head: normocephalic, atraumatic, no scalp lesions, non-tender. ENT: Hearing grossly intact. Nose without bleeding, purulent discharge, or deviation. Mucous membrane moist, no mucosal lesion. Throat without erythema, tonsillar hypertrophy or exudate. Uvula in midline, airway patent. Neck/Thyroid: neck supple, full range of motion, no visible masses or meningeal signs. No JVD, non-tender without lymphadenopathy. Skin: no suspicious rashes, lesions over visible areas. Warm and dry and appropriate color for ethnicity. Heart: no clubbing, no cyanosis, no edema. S1 and S2 normal. RRR w/o murmurs, clicks, or bruits. Lungs: Breathing even and unlabored. No stridor. No accessory muscles used. Able to speak in full sentences. Chest: normal shape and expansion. Abdomen: non-obese, non-distended. Neurologic: alert and oriented. Cognitive exam, DEVELOPMENT COACH and PNS grossly intact on informal exam. Psych: good eye contact, normal affect. Initial Vital Signs Initial Vital Signs: Vital Signs Temperature 99.5 F 04/20/19 17:32 Pulse Rate 75 04/20/19 17:32 Respiratory Rate 16 04/20/19 17:32 Blood Pressure 168/81 H 04/20/19 17:32 Pulse Oximetry 96 04/20/19 17:32 Back/Spine/Pelvis Thoracic/Lumbar Spine: thoracic and lumbar spine normal to inspection, bend over test abnormal, No mass, pain with thoraco-lumbar ROM, paraspinal tenderness, thoraco-lumbar ROM limited, thoraco-lumbar spasm and lumbar spinal tenderness <Vaughn Seth DO - Last Filed: 04/21/19 01:35> Initial Vital Signs Initial Vital Signs: Vital Signs Temperature 99.5 F 04/20/19 17:32 Pulse Rate 75 04/20/19 17:32 Respiratory Rate 16 04/20/19 17:32 Blood Pressure 168/81 H 04/20/19 17:32 Pulse Oximetry 96 04/20/19 17:32 Scores <SAIRA Cain - Last Filed: 04/21/19 01:07> GCS Karoline coma scale eye opening: Spontaneous [place] coma scale verbal response: Orientated [place] coma scale motor response: Obey commands [place] coma scale total score: 15 Course <SAIRA Cain - Last Filed: 04/21/19 01:07> Orders Ordered: Discontinued Medications Acetaminophen (Tylenol) 650 mg PO NOW ONE Stop: 04/20/19 20:30 Last Admin: 04/20/19 20:35 Dose: 650 mg Documented by: DINH Prednisone (Deltasone) 40 mg PO NOW ONE Stop: 04/20/19 20:30 Last Admin: 04/20/19 20:35 Dose: 40 mg Documented by: DINH Tramadol HCl (Ultram 50mg Prepack) 1 bottle MISC SEEINSTR ONE Stop: 04/20/19 20:44 Last Admin: 04/20/19 20:55 Dose: 1 bottle Documented by: LEXI Vital Signs Vital signs: Vital Signs - 8 hr 04/20/19 20:52 Pulse Rate 80 Respiratory Rate 17 Blood Pressure [Right Arm] 176/88 H Pulse Oximetry 99 <Vaughn Seth DO - Last Filed: 04/21/19 01:35> Orders Ordered: Discontinued Medications Acetaminophen (Tylenol) 650 mg PO NOW ONE Stop: 04/20/19 20:30 Last Admin: 04/20/19 20:35 Dose: 650 mg Documented by: DINH Prednisone (Deltasone) 40 mg PO NOW ONE Stop: 04/20/19 20:30 Last Admin: 04/20/19 20:35 Dose: 40 mg Documented by: DINH Tramadol HCl (Ultram 50mg Prepack) 1 bottle MISC SEEINSTR ONE Stop: 04/20/19 20:44 Last Admin: 04/20/19 20:55 Dose: 1 bottle Documented by: LEXI Vital Signs Vital signs: Vital Signs - 8 hr 04/20/19 20:52 Pulse Rate 80 Respiratory Rate 17 Blood Pressure [Right Arm] 176/88 H Pulse Oximetry 99 [facility] - Back Pain/Injury <SAIRA Cain - Last Filed: 04/21/19 01:07> Differential Diagnosis Differential diagnosis: Likely strain of lumbar region Medical Records Attestation: I reviewed the patient's medical records. [facility] Narrative Medical decision making narrative: Imaging test was not done today. Last x-ray was done in December 2018 which showed severe degenerative changes. Patient has nontraumatic back pain with muscle tightness in bilateral groin areas likely due to back strain. Patient was medicated with Tylenol and prednisone since patient is not able to take NSAIDS due to currently taking Pradaxa for PE. [facility] has verified and the last Tramadol was picked up on 03/13/2019 for #30 pills. Patient discharged to home with prepack of Tramadol, small dose of Flexeril, prescription of lidocaine patch, and 4 additional day duration of 40 mg of Prednisone and advised to take [id number] Tylenol. Patient also advised to talk with her PCP for referral to a physical therapist and to customer solutions specialist/pain management clinic if pain persists. Return precautions were discussed with the patient and patient verbalized understanding and agrees with the treatment plan. Discharge Plan Departure Patient Disposition: Home Clinical Impression: Low back pain Qualifiers: Chronicity: unspecified Back pain laterality: left Sciatica presence: unspecified whether sciatica present Qualified Code(s): M54.5 - Low back pain Discharge Date/Time: 04/20/19 21:31 Instructions: DI for Low Back Pain, DI for Back Spasm Activity Restrictions/Additional Instructions: You have been diagnosed with [ chronic acute low back pain ]. What to do: *Take your medications as directed. Please take Flexeril at night when you go to bed for muscle relaxant. This may cause drowsiness so please take precaution. Prednisone 40 mg daily for next 4 days. Tramadol is for severe pain and also this can cause drowsiness so please take precaution. Otherwise, take Tylenol 650mg up to 4 times a day as needed for pain. Lidocaine patch stays on for 12 hours and off for 12 hours. If prednisone upset her stomach, please take it with [id number] omeprazole daily. *Follow up with your primary care provider in 2-3 days, call for an appointment. Let them know you were seen in the ED and that we asked you to be seen in follow up. You may like to discuss with your provider a referral to physical therapist and orthopedist as needed. *Return to ED if you have any new, worsening, or concerning symptoms, such as [chest pain, breathing difficulty, unable to tolerate fluids, severe pain, incontinence, tingling, numbness, weakness to bilateral legs or any acute concerns]. Prescriptions: New prednisone 20 mg tablet 40 mg PO DAILY 5 Days RF: 0 cyclobenzaprine 10 mg tablet 10 mg PO BEDTIME PRN (Reason: muscle spasm) Qty: 10 RF: 0 lidocaine 5 % adhesive patch,medicated 1 patch TOP DAILY Qty: 30 RF: 0 No Action amlodipine 10 MG tablet 10 mg PO DAILY Qty: 0 RF: 0 tramadol 50 MG tablet 50 mg PO Q4H PRN (Reason: pain) Qty: 0 RF: 0 spironolactone 50 MG tablet 50 mg PO DAILY Qty: 0 RF: 0 atorvastatin 80 MG tablet 80 mg PO BEDTIME Qty: 0 RF: 0 [CRANBERRY] capsule 500 mg PO QPM Qty: 0 RF: 0 [MILK THISTLE] capsule 100 mg PO QPM Qty: 0 RF: 0 [PROBIOTIC] tablet 500 mg PO QPM Qty: 0 RF: 0 [TURMERIC] tablet 200 mg PO QPM Qty: 0 RF: 0 cyanocobalamin (vitamin B-12) [Vitamin B-12] 500 mcg Tablet 500 mcg PO QPM Qty: 0 RF: 0 coenzyme Q10 [Co Q-10] 100 mg Capsule 100 mg PO QPM Qty: 0 RF: 0 ascorbic acid (vitamin C) [Vitamin C] 500 mg Tablet,Chewable 1,000 mg PO DAILY RF: 0 ipratropium-albuterol 0.5 mg-3 mg(2.5 mg base)/3 mL solution for nebulization 3 ml INHALATION Q4-6H PRN (Reason: shortness of breath or wheezing) RF: 0 fluticasone propion-salmeterol 230-21 mcg/actuation HFA aerosol inhaler 2 puff Inhalation BID RF: 0 prednisone 20 mg tablet 20 mg PO DAILY Qty: 6 RF: 0 prednisone 20 mg tablet 20 mg PO DAILY Qty: 15 RF: 0 oseltamivir [Tamiflu] 75 mg Capsule 75 mg PO BID Qty: 6 RF: 0 cyclobenzaprine 10 mg tablet 10 mg PO BEDTIME PRN (Reason: muscle spasm) Qty: 5 RF: 0 montelukast 10 mg tablet 10 mg PO DAILY RF: 0 Pradaxa 150 mg capsule 150 mg PO BID RF: 0 albuterol sulfate 90 mcg/actuation HFA aerosol inhaler 2 puff Inhalation PRN PRN (Reason: Shortness Of Breath) RF: 0 Referrals: Vaughn River MD [Primary Care Provider] - <Vaughn Seth, DO - Last Filed: 04/21/19 01:35> Sign Out Provider Sign Out Attestation: Dr Seth Co-Sign Statement: I was available for consultation during this patient's emergency department visit. This chart is signed by myself for administrative purposes only. I did not have direct contact with this patient during this visit. They were seen independently by the APC.
== END 2019-04-20 21:31 | disposition home or self-care (01) ==
PROVIDERS: Emergency Provider Nurse Practitioner Family; PCP Family Medicine
DX: M54.5 Low back pain (principal)
CPT/HCPCS: 99283

== ENCOUNTER → 2019-10-05 15:48 | Outpatient (CLI) | payer OTHER, MEDICAID, SELFPAY ==
[2018-06-17 17:30] VITALS: BMI 38.4
--- NOTE | 2019-10-05 | DI.RAD.S_ITS ---
PROCEDURE: XR CHEST 2V INDICATIONS: Chronic obstructive pulmonary disease, unspecified TECHNIQUE: 2 views of the chest were acquired. COMPARISON: [facility], CR, XR CHEST 1V, 06/17/2018, 12:20. FINDINGS: Surgical changes and devices: None. Lungs and pleura: Scattered subsegmental atelectasis and/or scarring. No focal consolidation. No pleural effusions or pneumothorax. Mediastinum: Mediastinal contours are normal. Heart size is normal. Bones and chest wall: No suspicious bony abnormalities. Soft tissues appear unremarkable. IMPRESSION: No acute disease Dictated by: Wiliam Farley M.D. on 10/05/2019 at 16:25 Approved by: Wiliam Farley M.D. on 10/05/2019 at 16:27
== END ==
PROVIDERS: PCP Family Medicine; Referring Provider Family Medicine; Visit Provider Family Medicine
DX: J44.9 Chronic obstructive pulmonary disease, unspecified (principal)
CPT/HCPCS: 71046

== ENCOUNTER 2020-07-27 15:06 | Emergency (ER) | payer OTHER, MEDICAID, SELFPAY ==
[2018-06-17 17:30] VITALS: BMI 38.4
[2020-07-27 15:24] VITALS: BP 187/90; PULSE 74; RESP 16; TEMP 36.4; O2SAT 97; BMI 36.2
--- NOTE | 2020-07-27 15:33 | DI.RAD.S_ITS ---
PROCEDURE: XR RIBS RT MIN 3V W CXR 1V INDICATIONS: Fall on pradaxa 3 weeks ago/ having unsteady gait TECHNIQUE: 2 views of the right ribs were acquired, along with a single view chest. COMPARISON: [facility], CT, CT ANGIO CHEST PE PROTOCOL, 06/17/2018, 13:56. [facility], CR, XR LUMBAR SPINE 2-3V, 12/26/2018, 12:44. [facility], CR, XR CHEST 1V, 06/17/2018, 12:20. FINDINGS: Surgical changes and devices: None. Bones and chest wall: Remote right lateral 3rd rib fracture. Acute mildly displaced lateral 4th rib fracture on the right. Degenerative changes of the shoulders and spine. Hydroxyapatite deposition is noted adjacent to the right shoulder suggestive of calcific tendinitis of the rotator cuff. Stable osseous excrescence along the left 6th rib. Lungs and pleura: No pleural effusions or pneumothorax. Linear densities at the left lung base likely representing atelectasis. Mediastinum: Mediastinal contours appear normal. Heart size is normal. IMPRESSION: Mildly displaced lateral 4th rib fracture. No pneumothorax. Dictated by: Luis Castellanos D.O. on 07/27/2020 at 15:23 Approved by: Luis Castellanos D.O. on 07/27/2020 at 15:28
--- NOTE | 2020-07-27 15:33 | DI.CT.S_ITS ---
PROCEDURE: CT HEAD/BRAIN WO CON INDICATIONS: Fall on pradaxa 3 weeks ago/ having unsteady gait TECHNIQUE: Noncontrast 4.5 mm thick angled axial sections acquired from the foramen magnum to the vertex, with coronal and sagittal reformats. For radiation dose reduction, the following was used: automated exposure control, adjustment of mA and/or kV according to patient size. COMPARISON: None. FINDINGS: Image quality: Excellent. CSF spaces: Basal cisterns are patent. No extra-axial fluid collections. Ventricles are normal in size and shape. Brain: No midline shift. No intracranial masses or hemorrhage. Lopez-white matter interface is normal. Minimal vascular calcifications are noted within the proximal intracranial carotid arteries. Skull and face: Calvarium and visualized facial bones are intact, without suspicious lesions. Sinuses: There is mild diffuse mucosal thickening of the paranasal sinuses. No air-fluid levels. Mastoid air cells are clear. IMPRESSION: No acute intracranial abnormality. Dictated by: Luis Castellanos D.O. on 07/27/2020 at 15:40 Approved by: Luis Castellanos D.O. on 07/27/2020 at 15:42
--- NOTE | 2020-07-27 15:41 | DI.CT.S_ITS ---
PROCEDURE: CT CERVICAL SPINE WO CON INDICATIONS: neck pain, multiple falls TECHNIQUE: Noncontrast 3 mm thick sections acquired from the skull base to the T4 level. Sagittal and coronal reformats were then constructed. For radiation dose reduction, the following was used: automated exposure control, adjustment of mA and/or kV according to patient size. COMPARISON: [facility], CT, CT ANGIO CHEST PE PROTOCOL, 06/17/2018, 13:56. FINDINGS: Image quality: Excellent. Bones: There is no fracture or dislocation. Likely degenerative anterolisthesis of C4 on C5 of approximately 2 millimeters. There is at least moderate intervertebral disc space loss of C5-C6. Mild height loss of C6-C7. There is diffuse endplate degenerative changes as well as uncovertebral joint and facet arthropathy. There is ankylosis of the left facets of C3-C4. There is moderate spinal canal stenosis posterior to C5-C6. Multiple levels of mild neural foraminal stenosis. Soft tissues: Prevertebral soft tissues are normal in thickness. No paravertebral hematomas. No apical pneumothoraces. 2.0 centimeter right thyroid lobe hypodensity. Carotid vascular calcifications worse at the bifurcation. IMPRESSION: Multilevel cervical spondylopathy worse at C5-C6 where there is moderate spinal canal stenosis. No evidence of an acute fracture or dislocation. 2.0 centimeter right thyroid lobe nodule. Recommend further evaluation with ultrasound. Dictated by: Luis Castellanos D.O. on 07/27/2020 at 15:42 Approved by: Luis Castellanos D.O. on 07/27/2020 at 15:47
--- NOTE | 2020-07-27 15:41 | ED.FALL ---
HPI - Fall General Chief Complaint: Fall Stated Complaint: Fall/Concussion, Headache, Tripped, RT Lung Pain Time Seen by Provider: 07/27/20 15:08 Source: patient and family Mode of arrival: Ambulatory Limitations: no limitations History of Present Illness HPI Narrative: 65-year-old female daily smoker with history of hypertension, pulmonary embolism on Pradaxa presents with her in the chief complaint of a fall roughly 2 weeks ago in which she tripped on a large dog bone in her room and struck the front of her head. She did not suffer loss of consciousness and had no vomiting. She had never departed from her baseline however she has had a persistent low-grade squeezing-type headache ever since. She has no significant focal neurologic findings such as blurred vision, trouble with speech, numbness, tingling, weakness but has had some trouble with balance and fell 1 other time. In addition as a consequence of her fall she has some sharp and stabbing pain on the left side of her mid to upper back but no shortness of breath. She has had no hemoptysis. Finally she has some midline neck pain and states that her neck cracks when she turns her head but she denies any weakness tingling or weakness. She is activated as a modified trauma based on her fall with head injury while on anticoagulation MD complaint: fall Related Data Home Medications Medication Instructions Recorded Confirmed amlodipine 10 mg PO DAILY #0 04/02/11 04/20/19 tramadol 50 mg PO Q4H PRN #0 04/02/11 04/20/19 atorvastatin 80 mg PO BEDTIME #0 04/23/17 04/20/19 spironolactone 50 mg PO DAILY #0 04/23/17 04/20/19 [CRANBERRY] 500 mg PO QPM #0 05/28/17 06/17/18 [MILK THISTLE] 100 mg PO QPM #0 05/28/17 06/17/18 [PROBIOTIC] 500 mg PO QPM #0 05/28/17 06/17/18 [TURMERIC] 200 mg PO QPM #0 05/28/17 06/17/18 coenzyme Q10 [Co Q-10] 100 mg PO QPM #0 05/28/17 06/17/18 cyanocobalamin (vitamin B-12) 500 mcg PO QPM #0 05/28/17 06/17/18 [Vitamin B-12] albuterol sulfate 2 puff INHALATION PRN PRN 01/03/18 04/20/19 ascorbic acid (vitamin C) [Vitamin 1,000 mg PO DAILY 06/17/18 06/17/18 C] fluticasone propion-salmeterol 2 puff INHALATION BID 06/17/18 04/20/19 ipratropium-albuterol 3 ml INHALATION Q4-6H PRN 06/17/18 06/17/18 dabigatran etexilate [Pradaxa] 150 mg PO BID 04/20/19 04/20/19 montelukast 10 mg PO DAILY 04/20/19 04/20/19 Previous Rx's Medication Instructions Recorded oseltamivir [Tamiflu] 75 mg PO BID #6 cap 06/19/18 prednisone 20 mg PO DAILY #15 tab 06/19/18 prednisone 20 mg PO DAILY #6 tab 06/19/18 cyclobenzaprine 10 mg PO BEDTIME PRN #5 tab 10/28/18 cyclobenzaprine 10 mg PO BEDTIME PRN #10 tab 04/20/19 lidocaine 1 patch TOP DAILY #30 each 04/20/19 Allergies Allergy/AdvReac Type Severity Reaction Status Date / Time atenolol [ATENOLOL] Allergy Severe LUNG FILL Verified 04/20/19 17:32 WITH FLUID doxycycline [DOXYCYCLINE] Allergy Severe HIVES Verified 04/20/19 17:32 hydrochlorothiazide Allergy Severe COVERED IN Verified 04/20/19 17:32 [HYDROCHLOROTHIAZIDE] BLISTERS lisinopril [LISINOPRIL] Allergy Severe SEVERE Verified 04/20/19 17:32 COUGH metoprolol [METOPROLOL] Allergy Severe HAIR FELL Verified 04/20/19 17:32 OUT Review of Systems Constitutional Constitutional: Denies chills, Denies fatigue, Denies fever(s), Denies frequent falls, Reports headache(s), Denies lethargy and Denies weakness Eyes Eyes: Denies change in vision, Denies eye discharge, Denies irritation and Denies loss of vision ENT Ears, Nose, Mouth, and Throat: Denies change in voice, Denies dizziness, Reports headache(s), Denies neck pain, Denies sore throat and Denies throat swelling Cardiovascular Cardiovascular: Denies chest pain, Reports chest pain at rest, Denies irregular heart rhythm, Denies lightheadedness, Denies palpitations, Denies dyspnea, Denies dyspnea on exertion and Denies orthopnea Respiratory Respiratory: Denies cough, Denies dyspnea, Denies dyspnea on exertion and Denies wheezing Gastrointestinal Gastrointestinal: Denies abdominal pain, Denies change in bowel habits, Denies diarrhea, Denies nausea and Denies vomiting Musculoskeletal Musculoskeletal: Denies neck pain and Denies numbness Integumentary/Breasts Skin/Breast: Denies pruritus, Denies erythema, Denies rash and Denies wounds Neurologic Neurologic: Denies behavioral changes, Denies confusion, Denies dizziness, Denies frequent falls, Reports headache(s), Denies loss of vision, Denies numbness and Denies weakness Psychiatric Psychiatric: Denies anxiety, Denies behavioral changes, Denies confusion, Denies depression, Denies homicidal ideation and Denies suicidal ideation Endocrine Endocrine: Denies fatigue, Denies flushing and Denies palpitations Hematologic/Lymphatic Hematologic/Lymphatic: Denies easy bruising Allergic/Immunologic Allergic/Immunologic: Denies urticaria, Denies throat swelling and Denies wheezing Patient History Medical History (Updated 07/27/20 @ 16:58 by Donis Shelton DO) Back pain Hyperlipidemia Hypertension Lazy eye of left side Pulmonary embolism Surgical History H/O section History of back surgery Social History household members: children Smoking Status: Current every day smoker alcohol intake: current substance use type: does not use Smoking Status: Current every day smoker alcohol intake frequency: 0-2 drinks per day Substance Use Type: does not use Exam Narrative Exam Narrative: GENERAL: [65] year old patient appears stated age. Well-nourished, well-developed patient, in mild distress. GCS 15 HEAD: Atraumatic. Normocephalic. EYES: Pupils equal round and reactive. Extraocular motions intact. No scleral icterus. No injection or drainage. ENT: Nose without bleeding, purulent drainage. Throat without erythema, tonsillar hypertrophy or exudate. Airway patent. NECK: Trachea midline. Non tender, no crepitus or step-offs CARDIOVASCULAR: Regular rate and rhythm without murmurs, gallops, or rubs. Right upper back and ribs tender to palpation, no crepitance. RESPIRATORY: Clear to auscultation. Breath sounds equal bilaterally. No wheezes, rales, or rhonchi. GASTROINTESTINAL: Abdomen soft, non-tender, nondistended. EXTREMITIES: No edema or joint tenderness. BACK: Nontender without deformity or crepitance. No flank tenderness. NEURO: AOx3. SKIN: No rash or erythema of visible areas Initial Vital Signs Initial Vital Signs: Vital Signs Temperature 97.6 F 07/27/20 15:24 Pulse Rate 74 07/27/20 15:24 Respiratory Rate 16 07/27/20 15:24 Blood Pressure 187/90 H 07/27/20 15:24 Pulse Oximetry 97 07/27/20 15:24 Course Orders Ordered: ED Orders 07/27/20 15:33 CT head/brain wo con Stat XR ribs RT min 3V w CXR1V Stat 07/27/20 15:41 CT cervical spine wo con Stat 07/27/20 16:10 Hemoglobin and Hematocrit Stat Prothrombin Time INR Stat Vital Signs Vital signs: Vital Signs - 8 hr 07/27/20 15:24 Temperature 97.6 F Pulse Rate 74 Respiratory Rate 16 Blood Pressure 187/90 H Pulse Oximetry 97 MDM - Fall Lab Data Result diagrams: 07/27/20 16:10 Labs: Lab Results 07/27/20 07/27/20 Range/Units 16:10 16:10 Hgb 15.9 (12.0-16.0) g/dL Hct 46.6 H (36-46) % PT 13.3 H (10.1-12.7) SECONDS INR 1.2 (0.9-1.3) Discharge Plan Departure Patient Disposition: Home Clinical Impression: Muscle spasms of neck Concussion Qualifiers: Encounter type: initial encounter Loss of consciousness presence/duration: without LOC Qualified Code(s): S06.0X0A - Concussion without loss of consciousness, initial encounter Fracture, rib Qualifiers: Encounter type: initial encounter Rib fracture type: single rib Fracture type: closed Laterality: left Qualified Code(s): S22.32XA - Fracture of one rib, left side, initial encounter for closed fracture Instructions: DI for Concussion Activity Restrictions/Additional Instructions: *You have been diagnosed with [fall with head injury resulting in concussion, neck spasm, and a single broken rib on the right side (4th).] *What to do: *Please continue to take your regular medications as directed. [ ] New medication prescriptions sent to your pharmacy: [ ] [ ] New medication written as a paper prescription [X] No new medications given *Please follow up with your primary care provider in 2-3 days, call for an appointment. Let them know you were seen in the Emergency Department and that we ask that you be seen in follow up. We will electronically transmit a record of today's note if your PCP is in our system *The CT of your neck notes a small nodule on your thyroid glad and recommend that your primary doctor helps you follow this by ordering a non-emergent our patient ultrasound *If you do not have a primary care provider please contact the [facility] Resource line at [phone]. They will ask some questions about your medical history and help get you set up with a doctor in the community. *Return to Emergency Department if you should have any new, worsening or concerning symptoms, such as [fever greater than 101 F, shaking chills, worsening pain, persistent vomiting or other bothersome symptoms] Prescriptions: No Action amlodipine 10 MG tablet 10 mg PO DAILY Qty: 0 RF: 0 tramadol 50 MG tablet 50 mg PO Q4H PRN (Reason: pain) Qty: 0 RF: 0 spironolactone 50 MG tablet 50 mg PO DAILY Qty: 0 RF: 0 atorvastatin 80 MG tablet 80 mg PO BEDTIME Qty: 0 RF: 0 [CRANBERRY] capsule 500 mg PO QPM Qty: 0 RF: 0 [MILK THISTLE] capsule 100 mg PO QPM Qty: 0 RF: 0 [PROBIOTIC] tablet 500 mg PO QPM Qty: 0 RF: 0 [TURMERIC] tablet 200 mg PO QPM Qty: 0 RF: 0 cyanocobalamin (vitamin B-12) [Vitamin B-12] 500 mcg Tablet 500 mcg PO QPM Qty: 0 RF: 0 coenzyme Q10 [Co Q-10] 100 mg Capsule 100 mg PO QPM Qty: 0 RF: 0 ascorbic acid (vitamin C) [Vitamin C] 500 mg Tablet,Chewable 1,000 mg PO DAILY RF: 0 ipratropium-albuterol 0.5 mg-3 mg(2.5 mg base)/3 mL solution for nebulization 3 ml INHALATION Q4-6H PRN (Reason: shortness of breath or wheezing) RF: 0 fluticasone propion-salmeterol 230-21 mcg/actuation HFA aerosol inhaler 2 puff Inhalation BID RF: 0 prednisone 20 mg tablet 20 mg PO DAILY Qty: 6 RF: 0 prednisone 20 mg tablet 20 mg PO DAILY Qty: 15 RF: 0 oseltamivir [Tamiflu] 75 mg Capsule 75 mg PO BID Qty: 6 RF: 0 cyclobenzaprine 10 mg tablet 10 mg PO BEDTIME PRN (Reason: muscle spasm) Qty: 5 RF: 0 montelukast 10 mg tablet 10 mg PO DAILY RF: 0 Pradaxa 150 mg capsule 150 mg PO BID RF: 0 cyclobenzaprine 10 mg tablet 10 mg PO BEDTIME PRN (Reason: muscle spasm) Qty: 10 RF: 0 lidocaine 5 % adhesive patch,medicated 1 patch TOP DAILY Qty: 30 RF: 0 albuterol sulfate 90 mcg/actuation HFA aerosol inhaler 2 puff Inhalation PRN PRN (Reason: Shortness Of Breath) RF: 0 Referrals: Vaughn River MD [Primary Care Provider] -
[2020-07-27 16:31] LABS: Hematocrit 46.6 % (36-46); Hemoglobin 15.9 g/dL (12.0-16.0)
[2020-07-27 16:36] LABS: INR 1.2 (0.9-1.3); Prothrombin Time 13.3 SECONDS (10.1-12.7)
[2020-07-27 17:17] VITALS: BP 164/78; PULSE 65; O2SAT 99
== END 2020-07-27 17:18 | disposition home or self-care (01) ==
PROVIDERS: Emergency Provider Emergency Medicine; PCP Family Medicine
DX: S06.0X0A Concussion without loss of consciousness, initial encounter (principal); S22.32XA Fracture of one rib, left side, initial encounter for closed fracture; M62.838 Other muscle spasm; W19.XXXA Unspecified fall, initial encounter
CPT/HCPCS: 36415; 70450; 71101; 72125; 85014; 85018; 85610; 99284

== ENCOUNTER 2020-12-01 16:26 | Emergency (ER) | payer OTHER, MEDICAID, SELFPAY ==
[2018-06-17 17:30] VITALS: BMI 38.4
[2020-12-01 16:26] VITALS: BP 188/89; PULSE 86; RESP 20; TEMP 36.6; O2SAT 97
--- NOTE | 2020-12-01 16:57 | ED_ITS ---
HPI - Neck Pain/Injury General Chief Complaint: Neck Pain/Injury Stated Complaint: HURT NECK AFFECTING BREATHING PAIN Time Seen by Provider: 12/01/20 16:49 Source: patient Mode of arrival: Ambulatory History of Present Illness HPI Narrative: Patient is a 65-year-old female. Several months ago she was seen in the emergency department and diagnosed with a neck strain and also a concussion after a fall. She states that for the past couple days she has having left shoulder and upper back discomfort. She states that her skin is burning over the area. Also has neck discomfort. Has a difficult time looking up. Difficult time raising her left arm in the air. There has been no new injury. She has been doing Tylenol at home. Also has been doing massage is at home without any improvement. Related Data Home Medications Medication Instructions Recorded Confirmed amlodipine 10 mg tablet 10 mg PO DAILY #0 04/02/11 04/20/19 tramadol 50 mg tablet 50 mg PO Q4H PRN #0 04/02/11 04/20/19 atorvastatin 80 mg tablet 80 mg PO BEDTIME #0 04/23/17 04/20/19 spironolactone 50 mg tablet 50 mg PO DAILY #0 04/23/17 04/20/19 [CRANBERRY] 500 mg PO QPM #0 05/28/17 06/17/18 [MILK THISTLE] 100 mg PO QPM #0 05/28/17 06/17/18 [PROBIOTIC] 500 mg PO QPM #0 05/28/17 06/17/18 [TURMERIC] 200 mg PO QPM #0 05/28/17 06/17/18 coenzyme Q10 100 mg capsule (Co 100 mg PO QPM #0 05/28/17 06/17/18 Q-10) cyanocobalamin (vitamin B-12) 500 500 mcg PO QPM #0 05/28/17 06/17/18 mcg tablet (Vitamin B-12) albuterol sulfate 90 mcg/actuation 2 puff INHALATION PRN PRN 01/03/18 04/20/19 aerosol inhaler ascorbic acid (vitamin C) 500 mg 1,000 mg PO DAILY 06/17/18 06/17/18 chewable tablet (Vitamin C) fluticasone propionate 230 2 puff INHALATION BID 06/17/18 04/20/19 mcg-salmeterol 21 mcg/actuation HFA inhaler ipratropium 0.5 mg-albuterol 3 mg 3 ml INHALATION Q4-6H PRN 06/17/18 06/17/18 (2.5 mg base)/3 mL nebulization soln dabigatran etexilate 150 mg 150 mg PO BID 04/20/19 04/20/19 capsule (Pradaxa) montelukast 10 mg tablet 10 mg PO DAILY 04/20/19 04/20/19 Previous Rx's Medication Instructions Recorded oseltamivir 75 mg capsule (Tamiflu) 75 mg PO BID #6 cap 06/19/18 prednisone 20 mg tablet 20 mg PO DAILY #15 tab 06/19/18 prednisone 20 mg tablet 20 mg PO DAILY #6 tab 06/19/18 cyclobenzaprine 10 mg tablet 10 mg PO BEDTIME PRN #5 tab 10/28/18 cyclobenzaprine 10 mg tablet 10 mg PO BEDTIME PRN #10 tab 04/20/19 lidocaine 5 % topical patch 1 patch TOP DAILY #30 each 04/20/19 cyclobenzaprine 10 mg tablet 10 mg PO TID PRN #14 tab 12/01/20 Allergies Allergy/AdvReac Type Severity Reaction Status Date / Time atenolol [ATENOLOL] Allergy Severe LUNG FILL Verified 04/20/19 17:32 WITH FLUID doxycycline [DOXYCYCLINE] Allergy Severe HIVES Verified 04/20/19 17:32 hydrochlorothiazide Allergy Severe COVERED IN Verified 04/20/19 17:32 [HYDROCHLOROTHIAZIDE] BLISTERS lisinopril [LISINOPRIL] Allergy Severe SEVERE Verified 04/20/19 17:32 COUGH metoprolol [METOPROLOL] Allergy Severe HAIR FELL Verified 04/20/19 17:32 OUT Review of Systems Constitutional Constitutional: Denies fever(s) and Denies headache(s) ENT Ears, Nose, Mouth, and Throat: Denies headache(s) Cardiovascular Cardiovascular: Reports system reviewed and no additional complaints, except as documented Respiratory Respiratory: Reports system reviewed and no additional complaints, except as documented Gastrointestinal Gastrointestinal: Reports system reviewed and no additional complaints, except as documented Musculoskeletal Musculoskeletal: Reports system reviewed and no additional complaints, except as documented and Reports as per HPI Integumentary/Breasts Skin/Breast: Reports system reviewed and no additional complaints, except as documented Neurologic Neurologic: Denies headache(s) Hematologic/Lymphatic On Anticoagulants: No Allergic/Immunologic Allergic/Immunologic: Reports system reviewed and no additional complaints, e xcept as documented Patient History Medical History Back pain Hyperlipidemia Hypertension Lazy eye of left side Pulmonary embolism Surgical History H/O section History of back surgery Social History household members: children Smoking Status: Current every day smoker alcohol intake: current substance use type: does not use Smoking Status: Current every day smoker alcohol intake frequency: 3 or more drinks per day Substance Use Type: does not use Exam Initial Vital Signs Initial Vital Signs: Vital Signs Temperature 97.9 F 12/01/20 16:26 Pulse Rate 86 12/01/20 16:26 Respiratory Rate 20 12/01/20 16:26 Blood Pressure 188/89 H 12/01/20 16:26 Pulse Oximetry 97 12/01/20 16:26 Const General: cooperative and comfortable HENMT Head: normal to inspection and normocephalic Chest Chest: normal inspection of the chest Resp Effort & Inspection: normal respiratory effort Auscultation: clear to auscultation bilaterally Cardio Rate: regular rate Rhythm: regular rhythm Back/Spine/Pelvis Cervical Spine: No cervical muscular tenderness and No cervical spinal tenderness Thoracic/Lumbar Spine: paraspinal tenderness (Left thoracic paraspinal), No thoracic spinal tenderness and No lumbar spinal tenderness Skin General: no rashes or lesions noted Neuro General: patient alert, patient awake and moves all extremities Extrem General: normal to inspection and capillary refill normal Psych Appearance: grossly normal and well kempt Course Orders Ordered: Discontinued Medications Cyclobenzaprine HCl (Cyclobenzaprine 10 Mg Tablet) 10 mg PO NOW ONE Stop: 12/01/20 17:37 Last Admin: 12/01/20 17:40 Dose: 10 mg Documented by: DEJA Hydromorphone HCl (Hydromorphone 1 Mg Inj) 1 mg IV NOW ONE Stop: 12/01/20 16:58 Last Admin: 12/01/20 17:09 Dose: 1 mg Documented by: DEJA Lidocaine HCl (Lidocaine 1% (Pf)) 2 ml INJ NOW ONE Stop: 12/01/20 16:58 Last Admin: 12/01/20 17:13 Dose: 2 ml Documented by: DEJA Vital Signs Vital signs: Vital Signs - 8 hr 12/01/20 16:26 12/01/20 17:49 Temperature 97.9 F Pulse Rate 86 75 Respiratory Rate 20 12 Blood Pressure 188/89 H 168/81 H Pulse Oximetry 97 94 MDM - Neck Pain/Injury MDM Narrative Medical decision making narrative: Patient had most of her discomfort over the left-sided paraspinal/rhomboid area. There is no skin changes over the area that would make me concern for zoster. I suspect that her symptoms are musculoskeletal. I did do a trigger point injection with 2 cc of 1% lidocaine without epinephrine. Also sent home with muscle relaxers. She was given return precautions and follow-up instructions. She expressed understanding agreement. Discharge Plan Departure Patient Disposition: Home Clinical Impression: Muscle strain of left upper back Instructions: Thoracic Back Pain Activity Restrictions/Additional Instructions: I do recommend that you continue to do the conservative measures at home like we discussed. You can also use the muscle relaxers as directed. Also stay as active as possible. Contact your primary doctor for a follow-up. Return to the emergency department for any new or worsening symptoms Prescriptions: New cyclobenzaprine 10 mg tablet 10 mg PO TID PRN (Reason: muscle spasm) Qty: 14 RF: 0 No Action amlodipine 10 MG tablet 10 mg PO DAILY Qty: 0 RF: 0 tramadol 50 MG tablet 50 mg PO Q4H PRN (Reason: pain) Qty: 0 RF: 0 spironolactone 50 MG tablet 50 mg PO DAILY Qty: 0 RF: 0 atorvastatin 80 MG tablet 80 mg PO BEDTIME Qty: 0 RF: 0 [CRANBERRY] capsule 500 mg PO QPM Qty: 0 RF: 0 [MILK THISTLE] capsule 100 mg PO QPM Qty: 0 RF: 0 [PROBIOTIC] tablet 500 mg PO QPM Qty: 0 RF: 0 [TURMERIC] tablet 200 mg PO QPM Qty: 0 RF: 0 cyanocobalamin (vitamin B-12) [Vitamin B-12] 500 mcg Tablet 500 mcg PO QPM Qty: 0 RF: 0 coenzyme Q10 [Co Q-10] 100 mg Capsule 100 mg PO QPM Qty: 0 RF: 0 ascorbic acid (vitamin C) [Vitamin C] 500 mg Tablet,Chewable 1,000 mg PO DAILY RF: 0 ipratropium-albuterol 0.5 mg-3 mg(2.5 mg base)/3 mL solution for nebulization 3 ml INHALATION Q4-6H PRN (Reason: shortness of breath or wheezing) RF: 0 fluticasone propion-salmeterol 230-21 mcg/actuation HFA aerosol inhaler 2 puff Inhalation BID RF: 0 prednisone 20 mg tablet 20 mg PO DAILY Qty: 6 RF: 0 prednisone 20 mg tablet 20 mg PO DAILY Qty: 15 RF: 0 oseltamivir [Tamiflu] 75 mg Capsule 75 mg PO BID Qty: 6 RF: 0 cyclobenzaprine 10 mg tablet 10 mg PO BEDTIME PRN (Reason: muscle spasm) Qty: 5 RF: 0 montelukast 10 mg tablet 10 mg PO DAILY RF: 0 Pradaxa 150 mg capsule 150 mg PO BID RF: 0 cyclobenzaprine 10 mg tablet 10 mg PO BEDTIME PRN (Reason: muscle spasm) Qty: 10 RF: 0 lidocaine 5 % adhesive patch,medicated 1 patch TOP DAILY Qty: 30 RF: 0 albuterol sulfate 90 mcg/actuation HFA aerosol inhaler 2 puff Inhalation PRN PRN (Reason: Shortness Of Breath) RF: 0 Referrals: Vaughn River MD [Primary Care Provider] -
[2020-12-01] MEDS: HYDROMORPHONE 1 MG INJ IV (17:09)
[2020-12-01] MEDS: LIDOCAINE 1% (PF) 2 ML INJ (17:13)
[2020-12-01] MEDS: CYCLOBENZAPRINE 10 MG TABLET PO (17:40)
[2020-12-01 17:49] VITALS: BP 168/81; PULSE 75; RESP 12; O2SAT 94
== END 2020-12-01 17:53 | disposition home or self-care (01) ==
PROVIDERS: Emergency Provider Emergency Medicine; PCP Family Medicine
DX: S29.012A Strain of muscle and tendon of back wall of thorax, initial encounter (principal)
CPT/HCPCS: 96374; 99283; 99284; J1170

== ENCOUNTER 2020-12-10 13:51 | Emergency (ER) | payer OTHER, MEDICAID, SELFPAY ==
[2018-06-17 17:30] VITALS: BMI 38.4
[2020-12-10 13:54] VITALS: BP 177/74; PULSE 72; RESP 18; TEMP 36.6; O2SAT 99
--- NOTE | 2020-12-10 14:53 | ED.SKABFB ---
HPI - Skin/Abscess/Foreign Bdy General Chief complaint: Skin/Abscess/Foreign Body Stated complaint: Swollen lip- painful Time Seen by Provider: 12/10/20 14:49 Source: patient Mode of arrival: Ambulatory History of Present Illness HPI narrative: 65-year-old female smoker presents with family in the chief complaint of a few days of increased pain and swelling of her upper lip. She denies any injury. She denies any spontaneous drainage. She has had no systemic findings such as fever or chills. She denies any intraoral drainage. She does state that earlier in the year she suffered a dental injury and questions whether not that baby be playing a role. She does have poor dentition. Related Data Home Medications Medication Instructions Recorded Confirmed amlodipine 10 mg tablet 10 mg PO DAILY #0 04/02/11 04/20/19 tramadol 50 mg tablet 50 mg PO Q4H PRN #0 04/02/11 04/20/19 atorvastatin 80 mg tablet 80 mg PO BEDTIME #0 04/23/17 04/20/19 spironolactone 50 mg tablet 50 mg PO DAILY #0 04/23/17 04/20/19 [CRANBERRY] 500 mg PO QPM #0 05/28/17 06/17/18 [MILK THISTLE] 100 mg PO QPM #0 05/28/17 06/17/18 [PROBIOTIC] 500 mg PO QPM #0 05/28/17 06/17/18 [TURMERIC] 200 mg PO QPM #0 05/28/17 06/17/18 coenzyme Q10 100 mg capsule (Co 100 mg PO QPM #0 05/28/17 06/17/18 Q-10) cyanocobalamin (vitamin B-12) 500 500 mcg PO QPM #0 05/28/17 06/17/18 mcg tablet (Vitamin B-12) albuterol sulfate 90 mcg/actuation 2 puff INHALATION PRN PRN 01/03/18 04/20/19 aerosol inhaler ascorbic acid (vitamin C) 500 mg 1,000 mg PO DAILY 06/17/18 06/17/18 chewable tablet (Vitamin C) fluticasone propionate 230 2 puff INHALATION BID 06/17/18 04/20/19 mcg-salmeterol 21 mcg/actuation HFA inhaler ipratropium 0.5 mg-albuterol 3 mg 3 ml INHALATION Q4-6H PRN 06/17/18 06/17/18 (2.5 mg base)/3 mL nebulization soln dabigatran etexilate 150 mg 150 mg PO BID 04/20/19 04/20/19 capsule (Pradaxa) montelukast 10 mg tablet 10 mg PO DAILY 04/20/19 04/20/19 Previous Rx's Medication Instructions Recorded oseltamivir 75 mg capsule (Tamiflu) 75 mg PO BID #6 cap 06/19/18 prednisone 20 mg tablet 20 mg PO DAILY #15 tab 06/19/18 prednisone 20 mg tablet 20 mg PO DAILY #6 tab 06/19/18 cyclobenzaprine 10 mg tablet 10 mg PO BEDTIME PRN #5 tab 10/28/18 cyclobenzaprine 10 mg tablet 10 mg PO BEDTIME PRN #10 tab 04/20/19 lidocaine 5 % topical patch 1 patch TOP DAILY #30 each 04/20/19 cyclobenzaprine 10 mg tablet 10 mg PO TID PRN #14 tab 12/01/20 amoxicillin 875 mg-potassium 1 tab PO BID #20 tab 12/10/20 clavulanate 125 mg tablet (Augmentin) hydrocodone 5 mg-acetaminophen 325 1 tab PO Q4-6H PRN #10 tab 12/10/20 mg tablet Allergies Allergy/AdvReac Type Severity Reaction Status Date / Time atenolol [ATENOLOL] Allergy Severe LUNG FILL Verified 04/20/19 17:32 WITH FLUID doxycycline [DOXYCYCLINE] Allergy Severe HIVES Verified 04/20/19 17:32 hydrochlorothiazide Allergy Severe COVERED IN Verified 04/20/19 17:32 [HYDROCHLOROTHIAZIDE] BLISTERS lisinopril [LISINOPRIL] Allergy Severe SEVERE Verified 04/20/19 17:32 COUGH metoprolol [METOPROLOL] Allergy Severe HAIR FELL Verified 04/20/19 17:32 OUT Review of Systems Review of Systems Narrative: GENERAL: Denies chills, fatigue, malaise, fever, sweats. HEENT: See HPI RESPIRATORY: Denies dyspnea, cough, wheezing, hemoptysis, sputum. CARDIOVASCULAR: Denies chest pain, palpitations, orthopnea, edema, GASTROINTESTINAL: Denies nausea, vomiting, abdominal pain, diarrhea, constipation, melena. : Denies dysuria, frequency, incontinence, hematuria, urinary retention. MUSCULOSKELETAL: denies weakness, joint pain, or bony pain SKIN: Denies rash, skin lesions, or other NEUROLOGIC: Denies weakness, headache, numbness, change in speech, confusion, seizures, incoordination. PSYCHIATRIC: No concerning psychosocial issues. 12 point review of systems is negative except for those stated above Patient History Medical History Back pain Hyperlipidemia Hypertension Lazy eye of left side Pulmonary embolism Surgical History H/O section History of back surgery Social History household members: children Smoking Status: Current every day smoker alcohol intake: current substance use type: does not use Smoking Status: Current every day smoker alcohol intake frequency: 0-2 drinks per day Substance Use Type: does not use Exam Narrative Exam Narrative: GEN: AOx3 and in mild distress, no signs of respiratory distress, guarding her airway and controlling secretions without difficulty EYES: Pupils are equal, round, and reactive to light and accommodation. Extraoccular muscles are intact bilaterally. There is no subconjunctival hemorrhage or exudate. ENT: No intranasal swelling, left upper lip, just lateral to philtrum with swelling, redness and induration, no fluctuance or drainage noted, lip everted and no drainage or obvious fluctuance noted CHEST: Lungs are clear to auscultation bilaterally and free of wheezes, rales, or rhonchi. Heart rate is regular rhythm, there are no murmurs, clicks, rubs, or gallops. There is no chest wall tenderness. ABD: Abdomen is soft and nontender. There is no guarding or rebound. Bowel sounds are normal in all 4 quadrants. There is no mass or organomegaly. EXT: Full painless ROM of all extremities with no loss of sensation or strength. SKIN: Warm, pink, and dry. No erythema or rash Initial Vital Signs Initial Vital Signs: Vital Signs Temperature 97.8 F 12/10/20 13:54 Pulse Rate 72 12/10/20 13:54 Respiratory Rate 18 12/10/20 13:54 Blood Pressure 177/74 H 12/10/20 13:54 Pulse Oximetry 99 12/10/20 13:54 Course Vital Signs Vital signs: Vital Signs - 8 hr 12/10/20 13:54 Temperature 97.8 F Pulse Rate 72 Respiratory Rate 18 Blood Pressure 177/74 H Pulse Oximetry 99 MDM - Skin/Abscess/Foreign Bdy MDM Narrative Medical decision making narrative: Patient with left upper lip swelling, most likely infectious, presumed odontogenic source. Induration present, no fluctuance or suspected abscess which is currently amenable to drainage. Patient encouraged to use warm compresses, antibiotics sent to her pharmacy. Return precautions given and questions answered to her apparent satisfaction Discharge Plan Departure Patient Disposition: Home Clinical Impression: Lip abscess Instructions: DI for Skin Abscess Activity Restrictions/Additional Instructions: *You have been diagnosed with [upper lip cellulitis and likely early abscess. No indication that it is ready for drainage just yet. *What to do: *Please continue to take your regular medications as directed. [ x] New medication prescriptions sent to your pharmacy: [[facility]] [ ] New medication written as a paper prescription [ ] No new medications given *Please follow up with your primary care provider in 2-3 days, call for an appointment. Let them know you were seen in the Emergency Department and that we ask that you be seen in follow up. We will electronically transmit a record of today's note if your PCP is in our system *If you do not have a primary care provider please contact the [facility] Resource line at [phone]. They will ask some questions about your medical history and help get you set up with a doctor in the community. *Return to Emergency Department if you should have any new, worsening or concerning symptoms, such as [fever greater than 101 F, shaking chills, worsening pain, persistent vomiting or other bothersome symptoms] Prescriptions: New hydrocodone-acetaminophen 5-325 mg tablet 1 tab PO Q4-6H PRN (Reason: pain) Qty: 10 RF: 0 amoxicillin-pot clavulanate [Augmentin] 875-125 mg tablet 1 tab PO BID Qty: 20 RF: 0 No Action amlodipine 10 MG tablet 10 mg PO DAILY Qty: 0 RF: 0 tramadol 50 MG tablet 50 mg PO Q4H PRN (Reason: pain) Qty: 0 RF: 0 spironolactone 50 MG tablet 50 mg PO DAILY Qty: 0 RF: 0 atorvastatin 80 MG tablet 80 mg PO BEDTIME Qty: 0 RF: 0 [CRANBERRY] capsule 500 mg PO QPM Qty: 0 RF: 0 [MILK THISTLE] capsule 100 mg PO QPM Qty: 0 RF: 0 [PROBIOTIC] tablet 500 mg PO QPM Qty: 0 RF: 0 [TURMERIC] tablet 200 mg PO QPM Qty: 0 RF: 0 cyanocobalamin (vitamin B-12) [Vitamin B-12] 500 mcg Tablet 500 mcg PO QPM Qty: 0 RF: 0 coenzyme Q10 [Co Q-10] 100 mg Capsule 100 mg PO QPM Qty: 0 RF: 0 ascorbic acid (vitamin C) [Vitamin C] 500 mg Tablet,Chewable 1,000 mg PO DAILY RF: 0 ipratropium-albuterol 0.5 mg-3 mg(2.5 mg base)/3 mL solution for nebulization 3 ml INHALATION Q4-6H PRN (Reason: shortness of breath or wheezing) RF: 0 fluticasone propion-salmeterol 230-21 mcg/actuation HFA aerosol inhaler 2 puff Inhalation BID RF: 0 prednisone 20 mg tablet 20 mg PO DAILY Qty: 6 RF: 0 prednisone 20 mg tablet 20 mg PO DAILY Qty: 15 RF: 0 oseltamivir [Tamiflu] 75 mg Capsule 75 mg PO BID Qty: 6 RF: 0 cyclobenzaprine 10 mg tablet 10 mg PO BEDTIME PRN (Reason: muscle spasm) Qty: 5 RF: 0 montelukast 10 mg tablet 10 mg PO DAILY RF: 0 Pradaxa 150 mg capsule 150 mg PO BID RF: 0 cyclobenzaprine 10 mg tablet 10 mg PO BEDTIME PRN (Reason: muscle spasm) Qty: 10 RF: 0 lidocaine 5 % adhesive patch,medicated 1 patch TOP DAILY Qty: 30 RF: 0 cyclobenzaprine 10 mg tablet 10 mg PO TID PRN (Reason: muscle spasm) Qty: 14 RF: 0 albuterol sulfate 90 mcg/actuation HFA aerosol inhaler 2 puff Inhalation PRN PRN (Reason: Shortness Of Breath) RF: 0 Referrals: Vaughn River MD [Primary Care Provider] - Stand Alone Forms: Work Release Note
== END 2020-12-10 15:13 | disposition home or self-care (01) ==
PROVIDERS: Emergency Provider Emergency Medicine; PCP Family Medicine
DX: K13.0 Diseases of lips (principal)
CPT/HCPCS: 99281

== ENCOUNTER 2021-04-01 14:33 | Emergency (ER) | payer OTHER, MEDICAID, SELFPAY ==
[2018-06-17 17:30] VITALS: BMI 38.4
[2021-04-01 14:37] VITALS: BP 186/79; PULSE 76; RESP 20; TEMP 37.1; O2SAT 97
[2021-04-01 15:12] LABS: COVID19 -Nasal RAPID Negative (Negative)
--- NOTE | 2021-04-01 15:53 | ED_ITS ---
HPI - Recheck/Abnormal Lab/Rx <Perico Raymond PA-C - Last Filed: 04/01/21 15:59> General Chief Complaint: Recheck/Abnormal Lab/Rx Stated Complaint: sob Source: patient Mode of arrival: Ambulatory History of Present Illness HPI narrative: 66-year-old female with past medical history COPD presents to the ED with 1 day of headache, fatigue, wheezing. Patient also endorses slightly worsened shortness of breath from her usual COPD baseline. Patient states that she used her albuterol inhaler with good relief this morning. Patient denies fever, chills, chest pain, nausea, vomiting, lightheadedness, syncope. Patient was exposed to COVID 19 by her children were both positive. Related Data Home Medications Medication Instructions Recorded Confirmed amlodipine 10 mg tablet 10 mg PO DAILY #0 04/02/11 04/20/19 tramadol 50 mg tablet 50 mg PO Q4H PRN #0 04/02/11 04/20/19 atorvastatin 80 mg tablet 80 mg PO BEDTIME #0 04/23/17 04/20/19 spironolactone 50 mg tablet 50 mg PO DAILY #0 04/23/17 04/20/19 [CRANBERRY] 500 mg PO QPM #0 05/28/17 06/17/18 [MILK THISTLE] 100 mg PO QPM #0 05/28/17 06/17/18 [PROBIOTIC] 500 mg PO QPM #0 05/28/17 06/17/18 [TURMERIC] 200 mg PO QPM #0 05/28/17 06/17/18 coenzyme Q10 100 mg capsule (Co 100 mg PO QPM #0 05/28/17 06/17/18 Q-10) cyanocobalamin (vitamin B-12) 500 500 mcg PO QPM #0 05/28/17 06/17/18 mcg tablet (Vitamin B-12) albuterol sulfate 90 mcg/actuation 2 puff INHALATION PRN PRN 01/03/18 04/20/19 aerosol inhaler ascorbic acid (vitamin C) 500 mg 1,000 mg PO DAILY 06/17/18 06/17/18 chewable tablet (Vitamin C) fluticasone propionate 230 2 puff INHALATION BID 06/17/18 04/20/19 mcg-salmeterol 21 mcg/actuation HFA inhaler ipratropium 0.5 mg-albuterol 3 mg 3 ml INHALATION Q4-6H PRN 06/17/18 06/17/18 (2.5 mg base)/3 mL nebulization soln dabigatran etexilate 150 mg 150 mg PO BID 04/20/19 04/20/19 capsule (Pradaxa) montelukast 10 mg tablet 10 mg PO DAILY 04/20/19 04/20/19 Previous Rx's Medication Instructions Recorded oseltamivir 75 mg capsule (Tamiflu) 75 mg PO BID #6 cap 06/19/18 prednisone 20 mg tablet 20 mg PO DAILY #15 tab 06/19/18 prednisone 20 mg tablet 20 mg PO DAILY #6 tab 06/19/18 cyclobenzaprine 10 mg tablet 10 mg PO BEDTIME PRN #5 tab 10/28/18 cyclobenzaprine 10 mg tablet 10 mg PO BEDTIME PRN #10 tab 04/20/19 lidocaine 5 % topical patch 1 patch TOP DAILY #30 each 04/20/19 cyclobenzaprine 10 mg tablet 10 mg PO TID PRN #14 tab 12/01/20 amoxicillin 875 mg-potassium 1 tab PO BID #20 tab 12/10/20 clavulanate 125 mg tablet (Augmentin) hydrocodone 5 mg-acetaminophen 325 1 tab PO Q4-6H PRN #10 tab 12/10/20 mg tablet Allergies Allergy/AdvReac Type Severity Reaction Status Date / Time atenolol [ATENOLOL] Allergy Severe LUNG FILL Verified 04/20/19 17:32 WITH FLUID doxycycline [DOXYCYCLINE] Allergy Severe HIVES Verified 04/20/19 17:32 hydrochlorothiazide Allergy Severe COVERED IN Verified 04/20/19 17:32 [HYDROCHLOROTHIAZIDE] BLISTERS lisinopril [LISINOPRIL] Allergy Severe SEVERE Verified 04/20/19 17:32 COUGH metoprolol [METOPROLOL] Allergy Severe HAIR FELL Verified 04/20/19 17:32 OUT Review of Systems <Perico Raymond PA-C - Last Filed: 04/01/21 15:59> Review of Systems ROS Unobtainable: All systems reviewed & are unremarkable except as noted in HPI and below Constitutional Constitutional: Denies chills, Reports fatigue, Denies fever(s), Denies frequent falls, Reports headache(s), Denies lethargy and Denies weakness Eyes Eyes: Denies change in vision, Denies eye discharge, Denies irritation and Denies loss of vision ENT Ears, Nose, Mouth, and Throat: Denies change in voice, Denies dizziness, Reports headache(s), Denies neck pain, Denies sore throat and Denies throat swelling Cardiovascular Cardiovascular: Denies chest pain, Denies irregular heart rhythm, Denies lightheadedness, Denies palpitations, Reports dyspnea, Denies dyspnea on exertion and Denies orthopnea Respiratory Respiratory: Denies cough, Reports dyspnea, Denies dyspnea on exertion and Reports wheezing Gastrointestinal Gastrointestinal: Denies abdominal pain, Denies change in bowel habits, Denies diarrhea, Denies nausea and Denies vomiting Genitourinary Genitourinary: Denies hematuria, Denies flank pain, Denies urinary incontinence and Denies urinary urgency Musculoskeletal Musculoskeletal: Denies back pain, Denies muscle weakness, Denies neck pain, Denies numbness and Denies tingling Integumentary/Breasts Skin/Breast: Denies pruritus, Denies erythema, Denies rash and Denies wounds Neurologic Neurologic: Denies behavioral changes, Denies confusion, Denies dizziness, Denies frequent falls, Reports headache(s), Denies loss of vision, Denies numbness, Denies tingling and Denies weakness Psychiatric Psychiatric: Denies anxiety, Denies behavioral changes, Denies confusion, Denies depression, Denies homicidal ideation and Denies suicidal ideation Endocrine Endocrine: Reports fatigue, Denies flushing and Denies palpitations Hematologic/Lymphatic Hematologic/Lymphatic: Denies easy bruising Allergic/Immunologic Allergic/Immunologic: Denies urticaria, Denies throat swelling and Reports wheezing Patient History <Perico Raymond PA-C - Last Filed: 04/01/21 15:59> Medical History Back pain Hyperlipidemia Hypertension Lazy eye of left side Pulmonary embolism Surgical History H/O section History of back surgery Social History household members: children Smoking Status: Current every day smoker alcohol intake: current substance use type: does not use Smoking Status: Current every day smoker alcohol intake frequency: 0-2 drinks per day Substance Use Type: does not use Exam <Perico Raymond PA-C - Last Filed: 04/01/21 15:59> Narrative Exam Narrative: Const General:?cooperative, healthy appearing and comfortable [facility] Head:?normal to inspection Ears:?hearing grossly normal bilaterally Nose:?external nose normal Face and sinus:?normal facial exam and sinuses nontender Mouth:?oral mucosae normal Throat:?posterior oropharynx normal Eyes General:?appearance normal, both eyes and all related structures Neck Neck:?normal visual inspection and no lymphadenopathy noted Resp Effort & Inspection:?normal respiratory effort Auscultation:? Mild, diffuse bilateral wheezes. No crackles, rales, rhonchi. Cardio Rate:?regular rate Rhythm:?regular rhythm Neuro General:?patient alert, patient awake and patient oriented x3 Initial Vital Signs Initial Vital Signs: Vital Signs Temperature 98.8 F 04/01/21 14:37 Pulse Rate 76 04/01/21 14:37 Respiratory Rate 20 04/01/21 14:37 Blood Pressure 186/79 H 04/01/21 14:37 Pulse Oximetry 97 04/01/21 14:37 <Naomi Fortune DO - Last Filed: 04/01/21 19:47> Initial Vital Signs Initial Vital Signs: Vital Signs Temperature 98.8 F 04/01/21 14:37 Pulse Rate 76 04/01/21 14:37 Respiratory Rate 20 04/01/21 14:37 Blood Pressure 186/79 H 04/01/21 14:37 Pulse Oximetry 97 04/01/21 14:37 Course <Perico Raymond PA-C - Last Filed: 04/01/21 15:59> Orders Ordered: ED Orders 04/01/21 14:43 COVID19 -Nasal swab/Pre-Proc Stat Vital Signs Vital signs: Vital Signs - 8 hr 04/01/21 14:37 Temperature 98.8 F Pulse Rate 76 Respiratory Rate 20 Blood Pressure 186/79 H Pulse Oximetry 97 <Naomi Fortune DO - Last Filed: 04/01/21 19:47> Orders Ordered: ED Orders 04/01/21 14:43 COVID19 -Nasal swab/Pre-Proc Stat Vital Signs Vital signs: Vital Signs - 8 hr 04/01/21 14:37 Temperature 98.8 F Pulse Rate 76 Respiratory Rate 20 Blood Pressure 186/79 H Pulse Oximetry 97 MDM - Recheck/Abnormal Lab/Rx <Perico Raymond PA-C - Last Filed: 04/01/21 15:59> Medical Records Attestation: I reviewed the patient's medical records. Lab Data Attestation: I reviewed the patient's lab results. Lab results narrative: COVID-19 negative Labs: Lab Results 04/01/21 Range/Units 14:43 SARS-CoV-2 (PCR) Negative (Negative) MDM Narrative Medical decision making narrative: 66-year-old female with past medical history COPD presents to the ED with 1 day of headache, fatigue, wheezing. Concern for COVID-19 infection versus other viral syndrome. Will test for COVID-19, informed patient. discharge patient home with ED return precautions, cdc guidelines for isolating/quadrant healing. Patient verbalized understanding. <Naomi Fortune DO - Last Filed: 04/01/21 19:47> Lab Data Labs: Lab Results 04/01/21 Range/Units 14:43 SARS-CoV-2 (PCR) Negative (Negative) Discharge Plan Departure Patient Disposition: Home Clinical Impression: URI (upper respiratory infection) Instructions: DI for COVID-19 (Suspected or Confirmed ) Activity Restrictions/Additional Instructions: You were evaluated in the ED for flu-like symptoms.? You were tested for COVID- 19 in the emergency department and you will be informed of results Please return to the ED if you have worsening shortness of breath, chest pain.? If positive, please isolate/quarantine per CDC guidelines, which currently states that you isolate/quadrant in for 5 days since the start of your symptoms.? After 5 days, if you do not have symptoms such as fever, runny nose, you may go out in public but with face mask at all times. Prescriptions: No Action amlodipine 10 MG tablet 10 mg PO DAILY Qty: 0 0RF tramadol 50 MG tablet 50 mg PO Q4H PRN (Reason: pain) Qty: 0 0RF spironolactone 50 MG tablet 50 mg PO DAILY Qty: 0 0RF atorvastatin 80 MG tablet 80 mg PO BEDTIME Qty: 0 0RF [CRANBERRY] capsule 500 mg PO QPM Qty: 0 0RF [MILK THISTLE] capsule 100 mg PO QPM Qty: 0 0RF [PROBIOTIC] tablet 500 mg PO QPM Qty: 0 0RF [TURMERIC] tablet 200 mg PO QPM Qty: 0 0RF cyanocobalamin (vitamin B-12) [Vitamin B-12] 500 mcg Tablet 500 mcg PO QPM Qty: 0 0RF coenzyme Q10 [Co Q-10] 100 mg Capsule 100 mg PO QPM Qty: 0 0RF ascorbic acid (vitamin C) [Vitamin C] 500 mg Tablet,Chewable 1,000 mg PO DAILY 0RF ipratropium-albuterol 0.5 mg-3 mg(2.5 mg base)/3 mL solution for nebulization 3 ml INHALATION Q4-6H PRN (Reason: shortness of breath or wheezing) 0RF fluticasone propion-salmeterol 230-21 mcg/actuation HFA aerosol inhaler 2 puff Inhalation BID 0RF prednisone 20 mg tablet 20 mg PO DAILY Qty: 6 0RF prednisone 20 mg tablet 20 mg PO DAILY Qty: 15 0RF Rx Instructions: Take 40 mg daily for 4 days, then take 20 mg daily for 4 days and then take 10 mg daily for 4 days. oseltamivir [Tamiflu] 75 mg Capsule 75 mg PO BID Qty: 6 0RF cyclobenzaprine 10 mg tablet 10 mg PO BEDTIME PRN (Reason: muscle spasm) Qty: 5 0RF Rx Instructions: This could cause drowsiness montelukast 10 mg tablet 10 mg PO DAILY 0RF Pradaxa 150 mg capsule 150 mg PO BID 0RF cyclobenzaprine 10 mg tablet 10 mg PO BEDTIME PRN (Reason: muscle spasm) Qty: 10 0RF lidocaine 5 % adhesive patch,medicated 1 patch TOP DAILY Qty: 30 0RF Rx Instructions: leave on most painful area for up to 12 hrs cyclobenzaprine 10 mg tablet 10 mg PO TID PRN (Reason: muscle spasm) Qty: 14 0RF albuterol sulfate 90 mcg/actuation HFA aerosol inhaler 2 puff Inhalation PRN PRN (Reason: Shortness Of Breath) 0RF hydrocodone-acetaminophen 5-325 mg tablet 1 tab PO Q4-6H PRN (Reason: pain) Qty: 10 0RF amoxicillin-pot clavulanate [Augmentin] 875-125 mg tablet 1 tab PO BID Qty: 20 0RF Referrals: Vaughn River MD [Primary Care Provider] - <Naomi Fortune DO - Last Filed: 04/01/21 19:47> Cosign ED Attending Cosignature Attestation: I was immediately available in the department for consultation. Documentation has been reviewed.
== END 2021-04-01 16:16 | disposition home or self-care (01) ==
PROVIDERS: Emergency Medicine; Emergency Provider Student in an Organized Health Care Education/Training Program; PCP Family Medicine
DX: J06.9 Acute upper respiratory infection, unspecified (principal); F17.200 Nicotine dependence, unspecified, uncomplicated; Z20.822 Contact with and (suspected) exposure to COVID-19
CPT/HCPCS: 87635; 99281; C9803

== ENCOUNTER 2021-12-24 14:54 | Emergency (ER) | payer OTHER, MEDICAID, SELFPAY ==
[2018-06-17 17:30] VITALS: BMI 38.4
[2021-12-24 15:20] VITALS: BP 157/75; PULSE 68; RESP 20; TEMP 36.5; O2SAT 99; BMI 32.0
--- NOTE | 2021-12-24 15:25 | DI.CT.S_ITS ---
PROCEDURE: CT HEAD/BRAIN WO CON INDICATIONS: head injury TECHNIQUE: Noncontrast 4.5 mm thick angled axial sections acquired from the foramen magnum to the vertex, with coronal and sagittal reformats. For radiation dose reduction, the following was used: automated exposure control, adjustment of mA and/or kV according to patient size. COMPARISON: [facility], CT, CT HEAD/BRAIN WO CON, 07/27/2020, 15:56. FINDINGS: Image quality: Excellent. CSF spaces: Basal cisterns are patent. No extra-axial fluid collections. Ventricles are normal in size and shape. Brain: No midline shift. No intracranial masses or hemorrhage. Lopez-white matter interface is normal. Skull and face: Calvarium and visualized facial bones are intact, without suspicious lesions. Sinuses: Mucoperiosteal thickening present in both maxillary sinuses. Visualized sinuses and mastoids are otherwise clear. IMPRESSION: No intracranial hemorrhage or other acute intracranial abnormality. Dictated by: Tashi Rothman M.D. on 12/24/2021 at 16:16 Approved by: Tashi Rothman M.D. on 12/24/2021 at 16:28
--- NOTE | 2021-12-24 15:25 | DI.CT.S_ITS ---
PROCEDURE: CT CERVICAL SPINE WO CON INDICATIONS: head injury TECHNIQUE: Noncontrast 3 mm thick sections acquired from the skull base to the T4 level. Sagittal and coronal reformats were then constructed. For radiation dose reduction, the following was used: automated exposure control, adjustment of mA and/or kV according to patient size. COMPARISON: [facility], CT, CT CERVICAL SPINE WO CON, 07/27/2020, 15:56. FINDINGS: Image quality: Excellent. Bones: No fractures or dislocations. Visualized superior ribs are intact. Straightening of the normal cervical lordosis, a finding which can be seen in the setting of muscle strain and/or spasm. Soft tissues: Prevertebral soft tissues are normal in thickness. No paravertebral hematomas. No apical pneumothoraces. IMPRESSION: No acute cervical spine fracture visualized. Dictated by: Tashi Rothman M.D. on 12/24/2021 at 16:29 Approved by: Tashi Rothman M.D. on 12/24/2021 at 16:33
[2021-12-24 20:01] VITALS: PULSE 67; O2SAT 98
[2021-12-24 20:02] VITALS: BP 185/94; PULSE 66; O2SAT 97
--- NOTE | 2021-12-24 20:20 | ED.FALL ---
HPI - Fall General Chief Complaint: Trauma Stated Complaint: fall 2 wks ago,headache, neck pain Time Seen by Provider: 12/24/21 20:20 Source: patient Mode of arrival: Ambulatory History of Present Illness HPI Narrative: Patient is a 66-year-old female history of pulmonary embolism on Pradaxa, drinks alcohol daily, COPD presenting with left-sided neck pain for the last 2 days worse today. She states that she fell 2 weeks ago. She says that she had a couple beers and a couple shots which she normally does after work she went into the kitchen and she fell down. She is not sure if she tripped. She denies any chest pain or palpitations. She was not seen or evaluated at that time but was noted to have a significant left periorbital contusion. She has been doing okay until the last couple days were she has neck pain. She has significant decreased range of motion is her neck is tender to touch. No numbness tingling or weakness. She did take some Aleve and Tylenol without any relief. She denies any weakness. No chest pain or palpitations today. Related Data Home Medications Medication Instructions Recorded Confirmed amlodipine 10 mg tablet 10 mg PO DAILY ##0 04/02/11 04/20/19 tramadol 50 mg tablet 50 mg PO Q4H PRN pain ##0 04/02/11 04/20/19 atorvastatin 80 mg tablet 80 mg PO BEDTIME ##0 04/23/17 04/20/19 spironolactone 50 mg tablet 50 mg PO DAILY ##0 04/23/17 04/20/19 [CRANBERRY] 500 mg PO QPM ##0 05/28/17 06/17/18 [MILK THISTLE] 100 mg PO QPM ##0 05/28/17 06/17/18 [PROBIOTIC] 500 mg PO QPM ##0 05/28/17 06/17/18 [TURMERIC] 200 mg PO QPM ##0 05/28/17 06/17/18 coenzyme Q10 100 mg capsule (Co 100 mg PO QPM ##0 05/28/17 06/17/18 Q-10) cyanocobalamin (vitamin B-12) 500 500 mcg PO QPM ##0 05/28/17 06/17/18 mcg tablet (Vitamin B-12) albuterol sulfate 90 mcg/actuation 2 puff inhalation PRN PRN 01/03/18 04/20/19 aerosol inhaler Shortness Of Breath ascorbic acid (vitamin C) 500 mg 1,000 mg PO DAILY 06/17/18 06/17/18 chewable tablet (Vitamin C) fluticasone propionate 230 2 puff inhalation BID 06/17/18 04/20/19 mcg-salmeterol 21 mcg/actuation HFA inhaler ipratropium 0.5 mg-albuterol 3 mg 3 ml inhalation Q4-6H PRN 06/17/18 06/17/18 (2.5 mg base)/3 mL nebulization shortness of breath or wheezing soln dabigatran etexilate 150 mg 150 mg PO BID 04/20/19 04/20/19 capsule (Pradaxa) montelukast 10 mg tablet 10 mg PO DAILY 04/20/19 04/20/19 Previous Rx's Medication Instructions Recorded oseltamivir 75 mg capsule (Tamiflu) 75 mg PO BID #6 caps 06/19/18 prednisone 20 mg tablet 20 mg PO DAILY #15 tabs 06/19/18 prednisone 20 mg tablet 20 mg PO DAILY #6 tabs 06/19/18 cyclobenzaprine 10 mg tablet 10 mg PO BEDTIME PRN muscle spasm 10/28/18 #5 tabs cyclobenzaprine 10 mg tablet 10 mg PO BEDTIME PRN muscle spasm 04/20/19 #10 tabs lidocaine 5 % topical patch 1 patch topical DAILY #30 ea 04/20/19 cyclobenzaprine 10 mg tablet 10 mg PO TID PRN muscle spasm #14 12/01/20 tabs amoxicillin 875 mg-potassium 1 tab PO BID #20 tabs 12/10/20 clavulanate 125 mg tablet (Augmentin) hydrocodone 5 mg-acetaminophen 325 1 tab PO Q4-6H PRN pain #10 tabs 12/10/20 mg tablet lidocaine 4 % topical patch 1 patch topical DAILY PRN pain #15 12/24/21 ea cyclobenzaprine 5 mg tablet 5 mg PO TID PRN muscle spasm #10 12/25/21 tabs Allergies Allergy/AdvReac Type Severity Reaction Status Date / Time atenolol [ATENOLOL] Allergy Severe LUNG FILL Verified 04/20/19 17:32 WITH FLUID doxycycline [DOXYCYCLINE] Allergy Severe HIVES Verified 04/20/19 17:32 hydrochlorothiazide Allergy Severe COVERED IN Verified 04/20/19 17:32 [HYDROCHLOROTHIAZIDE] BLISTERS lisinopril [LISINOPRIL] Allergy Severe SEVERE Verified 04/20/19 17:32 COUGH metoprolol [METOPROLOL] Allergy Severe HAIR FELL Verified 04/20/19 17:32 OUT Review of Systems Review of Systems Narrative: GENERAL: Denies chills, fatigue, malaise, fever, sweats, travel HEENT: Denies sinus pain, ear pain, sore throat, difficulty swallowing, neck pain RESPIRATORY: Denies dyspnea, cough, wheezing, hemoptysis, sputum. CARDIOVASCULAR: Denies chest pain, palpitations, orthopnea, edema GASTROINTESTINAL: Denies nausea, vomiting, abdominal pain, diarrhea, constipation, melena. : Denies dysuria, frequency, incontinence, hematuria, urinary retention, flank pain. MUSCULOSKELETAL: Left-sided neck spasm decreased rotation to left SKIN: No rash, no erythema, no pruritus NEUROLOGIC: Denies weakness, dizziness, headache, numbness, change in speech, confusion PSYCHIATRIC: No concerning psychosocial issues. 12 point review of systems is negative except for those stated above and HPI Patient History Medical History (Updated 12/24/21 @ 20:47 by Cindy Davis DO) Back pain Hyperlipidemia Hypertension Lazy eye of left side Pulmonary embolism Surgical History H/O section History of back surgery Social History household members: children Smoking Status: Current every day smoker alcohol intake: current substance use type: does not use Smoking Status: Current every day smoker alcohol intake frequency: 0-2 drinks per day Substance Use Type: does not use Exam Initial Vital Signs Initial Vital Signs: Vital Signs Temperature 97.7 F 12/24/21 15:20 Pulse Rate 68 12/24/21 15:20 Respiratory Rate 20 12/24/21 15:20 Blood Pressure 157/75 H 12/24/21 15:20 Pulse Oximetry 99 12/24/21 15:20 Oxygen Delivery Method 12/24/21 15:20 GENERAL: Alert pleasant 66-year-old female HEENT: Head atraumatic,EOMI, pupils reactive, face symmetric, [moist] mucous membranes NECK: Decreased range of motion no vertebral tenderness no step-off fever to touch over the trapezius CARDIOVASCULAR: Regular rate and rhythm without murmurs, rubs or gallops. RESPIRATORY: Breath sounds equal bilaterally, no wheezes rales or rhonchi. ABDOMEN: Soft, nontender. Normoactive bowel sounds all 4 quadrants. No guarding or rebound. EXTREMITIES: Normal range of motion, no clubbing or edema. Neurovascularly intact NEUROLOGICAL: Alert and oriented x4.Normal gait and speech. SKIN: Warm, dry, no laceration, no petechiae, no rashes or lesions. Course Orders Ordered: Discontinued Medications Lidocaine (Remove Lidocaine Patch) 1 each TOP BEDTIME ONE Stop: 12/24/21 21:15 Lidocaine (Lidocaine Patch 1 Each Adh..Patch) 1 each TOP NOW ONE Stop: 12/24/21 21:18 Last Admin: 12/24/21 21:25 Dose: 1 each Documented By: NR Lidocaine/Prilocaine (Lidocaine/Prilocaine 5 Gm) 5 gm TOP NOW ONE Stop: 12/24/21 20:32 Vital Signs Vital signs: Vital Signs - 8 hr 12/24/21 20:01 12/24/21 20:02 12/24/21 20:02 Pulse Rate 67 66 Blood Pressure 185/94 H Pulse Oximetry 98 97 12/24/21 21:26 12/24/21 21:26 Pulse Rate 60 Blood Pressure 188/89 H Pulse Oximetry 97 MDM - Fall Imaging Data CT scan - head: Radiologist's Impression: ?Hermila Calderón MR#: [id number] : 1955 Acct:[id number] Age/Sex: 66 / F Date of Service: 12/24/21 Loc: ED Accession Number: [id number] ?? Procedure: CT head/brain wo con Ordering Provider: Naomi Fortune D.O. PROCEDURE:? CT HEAD/BRAIN WO CON ? INDICATIONS:? head injury ? TECHNIQUE:? Noncontrast 4.5 mm thick angled axial sections acquired from the foramen magnum to the vertex, with coronal and sagittal reformats.? For radiation dose reduction, the following was used:? automated exposure control, adjustment of mA and/or kV according to patient size.? ? COMPARISON:? [facility], CT, CT HEAD/BRAIN WO CON, 07/27/2020, 15:56. ? FINDINGS:? Image quality:? Excellent.? ? CSF spaces:? Basal cisterns are patent.? No extra-axial fluid collections.? Ventricles are normal in size and shape.? ? Brain:? No midline shift.? No intracranial masses or hemorrhage.? Lopez-white matter interface is normal.? ? Skull and face:? Calvarium and visualized facial bones are intact, without suspicious lesions.? ? Sinuses:? Mucoperiosteal thickening present in both maxillary sinuses.? Visualized sinuses and mastoids are otherwise clear.? ? IMPRESSION:? No intracranial hemorrhage or other acute intracranial abnormality. ? ? Dictated by: Tashi Rothman M.D. on 12/24/2021 at 16:16 ? ? Approved by: Tashi Rothman M.D. on 12/24/2021 at 16:28 ? CT - cervical spine: Radiologist's Impression: Hermila Calderón MR#: [id number] : 1955 Acct:[id number] Age/Sex: 66 / F Date of Service: 12/24/21 Loc: ED Accession Number: [id number] ?? Procedure: CT cervical spine wo con Ordering Provider: Naomi Fortune D.O. PROCEDURE:? CT CERVICAL SPINE WO CON ? INDICATIONS:? head injury ? TECHNIQUE:? Noncontrast 3 mm thick sections acquired from the skull base to the T4 level.? Sagittal and coronal reformats were then constructed.? For radiation dose reduction, the following was used:? automated exposure control, adjustment of mA and/or kV according to patient size.? ? COMPARISON:? [facility], CT, CT CERVICAL SPINE WO CON, 07/27/2020, 15:56. ? FINDINGS:? Image quality:? Excellent.? ? Bones:? No fractures or dislocations.? Visualized superior ribs are intact.? Straightening of the normal cervical lordosis, a finding which can be seen in the setting of muscle strain and/or spasm. ? Soft tissues:? Prevertebral soft tissues are normal in thickness.? No paravertebral hematomas.? No apical pneumothoraces.? ? ? IMPRESSION:? No acute cervical spine fracture visualized. ? Dictated by: Tashi Rothman M.D. on 12/24/2021 at 16:29 ? ? MDM Narrative Medical decision making narrative: Patient is here today complaining of left-sided neck pain difficulty with rotation. She fell [address] scans are negative. She has no neurologic deficits is certainly reproducible with position and palpation. Seemed more like a muscle spasm. I discussed with her about when she falls while taking Pradaxa she needs to come to the emergency department. Also education on avoiding NSAIDs while on Pradaxa which she understands. She is not wanting any kind of narcotic which I agree with with likely make her higher fall risk. She is happy with the lidocaine patch and mady Discharge Plan Departure Patient Disposition: Home Clinical Impression: Cervical paraspinal muscle spasm Instructions: DI for Muscle Spasm Activity Restrictions/Additional Instructions: *You have been diagnosed with muscle spasm *What to do: Per recommend light stretching heating pad. He may try lidocaine patch only leave on for 12 hours and then you must remove to a completely different area If you should fall please be seen in the emergency department immediately you are on blood thinners and high risk of bleeding *Continue to take medications as directed Lidocaine patch place in 1 area for 12 hours only then remove you may place and a completely different area after it is removed-> SENT TO [facility] [place] Tylenol 650 mg every 4-6 hours if needed for [id number] pain *Follow up with your primary care provider in 2-3 days or call [phone] *Return to ER if you should have increasing pain numbness tingling weakness or any new, worsening or concerning symptoms Prescriptions: New lidocaine 4 % adhesive patch,medicated 1 patch topical DAILY PRN (Reason: pain) Qty: 15 0RF Rx Instructions: Apply for 12 hours only then remove cyclobenzaprine 5 mg tablet 5 mg PO TID PRN (Reason: muscle spasm) Qty: 10 0RF No Action amlodipine 10 MG tablet 10 mg PO DAILY Qty: 0 tramadol 50 MG tablet 50 mg PO Q4H PRN (Reason: pain) Qty: 0 spironolactone 50 MG tablet 50 mg PO DAILY Qty: 0 atorvastatin 80 MG tablet 80 mg PO BEDTIME Qty: 0 [CRANBERRY] capsule 500 mg PO QPM Qty: 0 [MILK THISTLE] capsule 100 mg PO QPM Qty: 0 [PROBIOTIC] tablet 500 mg PO QPM Qty: 0 [TURMERIC] tablet 200 mg PO QPM Qty: 0 cyanocobalamin (vitamin B-12) [Vitamin B-12] 500 mcg Tablet 500 mcg PO QPM Qty: 0 coenzyme Q10 [Co Q-10] 100 mg Capsule 100 mg PO QPM Qty: 0 ascorbic acid (vitamin C) [Vitamin C] 500 mg Tablet,Chewable 1,000 mg PO DAILY ipratropium-albuterol 0.5 mg-3 mg(2.5 mg base)/3 mL solution for nebulization 3 ml INHALATION Q4-6H PRN (Reason: shortness of breath or wheezing) fluticasone propion-salmeterol 230-21 mcg/actuation HFA aerosol inhaler 2 puff Inhalation BID prednisone 20 mg tablet 20 mg PO DAILY Qty: 6 0RF prednisone 20 mg tablet 20 mg PO DAILY Qty: 15 0RF Rx Instructions: Take 40 mg daily for 4 days, then take 20 mg daily for 4 days and then take 10 mg daily for 4 days. oseltamivir [Tamiflu] 75 mg Capsule 75 mg PO BID Qty: 6 0RF cyclobenzaprine 10 mg tablet 10 mg PO BEDTIME PRN (Reason: muscle spasm) Qty: 5 0RF Rx Instructions: This could cause drowsiness montelukast 10 mg tablet 10 mg PO DAILY Pradaxa 150 mg capsule 150 mg PO BID cyclobenzaprine 10 mg tablet 10 mg PO BEDTIME PRN (Reason: muscle spasm) Qty: 10 0RF lidocaine 5 % adhesive patch,medicated 1 patch TOP DAILY Qty: 30 0RF Rx Instructions: leave on most painful area for up to 12 hrs cyclobenzaprine 10 mg tablet 10 mg PO TID PRN (Reason: muscle spasm) Qty: 14 0RF albuterol sulfate 90 mcg/actuation HFA aerosol inhaler 2 puff Inhalation PRN PRN (Reason: Shortness Of Breath) hydrocodone-acetaminophen 5-325 mg tablet 1 tab PO Q4-6H PRN (Reason: pain) Qty: 10 0RF amoxicillin-pot clavulanate [Augmentin] 875-125 mg tablet 1 tab PO BID Qty: 20 0RF Referrals: Vaughn River MD [Primary Care Provider] - Visit Report Forms: Patient Portal/API
[2021-12-24] MEDS: LIDOCAINE PATCH 1 EACH ADH..PATCH TOP (21:25)
[2021-12-24 21:26] VITALS: BP 188/89; PULSE 60; O2SAT 97
== END 2021-12-24 21:33 | disposition home or self-care (01) ==
PROVIDERS: Emergency Provider Emergency Medicine; PCP Family Medicine
DX: M62.838 Other muscle spasm (principal); S09.90XA Unspecified injury of head, initial encounter; W18.30XA Fall on same level, unspecified, initial encounter; Z79.01 Long term (current) use of anticoagulants
CPT/HCPCS: 70450; 72125; 99283

== ENCOUNTER 2022-05-09 14:15 | Emergency (ER) | payer OTHER, MEDICAID, SELFPAY ==
[2018-06-17 17:30] VITALS: BMI 38.4
[2022-05-09 14:58] VITALS: BP 182/79; PULSE 70; RESP 16; TEMP 36.4; O2SAT 97; BMI 33.3
[2022-05-09 15:42] LABS: Add Manual Diff / Slide Review NO; Basophils Absolute Auto 0 /uL (0-100); Basophils Percent Auto 0.4 % (0-2); Eosinophils Absolute Auto 200 /uL (0-450); Eosinophils Percent Auto 2.7 % (2-4); Hematocrit 46.3 % (36-46); Hemoglobin 15.2 g/dL (12.0-16.0); Lymphocytes Absolute Auto 800 /uL (1100-4500); Lymphocytes Percent Auto 12.5 % (25-40); Mean Corpuscular HGB Conc 32.8 % (30-36); Mean Corpuscular Hemoglobin 31.1 PG (26-34); Mean Corpuscular Volume 94.9 fL (80-100); Monocytes Absolute Auto 500 /uL (0-900); Monocytes Percent Auto 8.1 % (3-14); Neutrophils Absolute Auto 5100 /uL (1500-7000); Neutrophils Percent Auto 76.3 % (50-75); Platelet Count 207 X10^3/uL (150-400); Red Blood Cell Count 4.87 X10^6/uL (4.0-5.2); Red Cell Distribution Width 14.3 % (11.6-14.8); White Blood Cell Count 6.6 X10^3/uL (4.5-11.0)
[2022-05-09 15:58] LABS: Alanine Aminotransferase 29 IU/L (<35); Albumin 4.3 g/dL (3.5-5.0); Albumin Globulin Ratio 1.5 (1.0-2.8); Alkaline Phosphatase 87 U/L (38-126); Aspartate Aminotransferase 34 IU/L (14-36); BUN Creatinine Ratio 27.9 (6-22); Blood Urea Nitrogen 17 mg/dL (7-17); Calcium 9.2 mg/dL (8.4-10.2); Carbon Dioxide 28 mmol/L (22-32); Chloride 104 mmol/L (98-107); Estimated Glomerular Filt Rate > 60 mL/min (>60); Globulin 2.8 g/dL (1.7-4.1); Glucose 92 mg/dL (80-110); HEMOLYSIS < 15 (0-50); Lipase 65 U/L (23-300); Potassium 4.5 mmol/L (3.4-5.1); Sodium 138 mmol/L (137-145); Total Protein 7.1 g/dL (6.3-8.2)
[2022-05-09 17:45] LABS: Bacteria Urine Few (2-10); Culture Indicated Urine Cult Not Indicated; RBC Urine 0-1/HPF (0-5/HPF); Squamous Epithelial Cell Urine 0-1 /HPF (0-5/HPF); WBC Urine 0-1/HPF (0-5/HPF)
--- NOTE | 2022-05-09 17:58 | DI.CT.S_ITS ---
PROCEDURE: CT KIDNEY URETER BLADDER (KUB) INDICATIONS: rt flank pain worsening TECHNIQUE: Axial sections were acquired from the lung bases to the pubic symphysis. Coronal and sagittal reformats were performed. For radiation dose reduction, the following was used: automated exposure control, adjustment of mA and/or kV according to patient size. COMPARISON: None. FINDINGS: Lower thorax: The lung bases are clear. Heart size normal. No hiatal hernia. Liver: Normal in size and attenuation. No contour deformity present. Biliary system: Calcified stones noted in the lumen of the gallbladder. No pericholecystic inflammatory change. No intra or extrahepatic bile duct dilation. Pancreas: Unremarkable without mass or inflammation evident. Spleen: Normal in size and density. Calcified splenic granulomas noted Adrenals: Normal morphology and density. Reproductive system: Unremarkable as visualized. Urinary system: Normal renal size and attenuation. No renal calculi, hydronephrosis, or solid mass present. Urinary bladder unremarkable. Gastrointestinal system: The bowel is unremarkable without evidence of bowel obstruction or inflammation. The stomach appears unremarkable. Appendix: Normal appendix identified. No evidence of appendicitis. Peritoneal spaces: No mesenteric or retroperitoneal adenopathy. No free air. No free fluid. Vasculature: Aortic atherosclerotic vascular calcification noted without evidence of aneurysm. Abdominal wall: Periumbilical ventral hernia contains fat without bowel involvement. Musculoskeletal: Normal bone mineralization. Degenerative disc disease and arthropathy noted in lower lumbar spine. No acute fractures. IMPRESSION: 1. Chronic degenerative changes including periumbilical ventral hernia 2. No renal calculi or obstructive uropathy. Approved by: Reji Ocampo M.D. on 05/09/2022 at 17:49
--- NOTE | 2022-05-09 17:59 | ED_ITS ---
HPI - Back Pain/Injury <Isela Roland, [facility] - Last Filed: 05/09/22 19:57> General Chief Complaint: Back Pain/Injury Stated Complaint: Back pain for 3 weeks, worsening Time Seen by Provider: 05/09/22 17:49 History of Present Illness HPI Narrative: This is a 67 year female presents to the emergency department with right-sided flank pain for the last 3 weeks, worsening pain, denies radiculopathy symptoms, she is anticoagulated on Pradaxa for history of pulmonary embolus. Denies urinary frequency or urgency, denies abnormal vaginal discharge, endorses nausea but denies vomiting. Denies stool changes including constipation. Endorses history of low back pain but denies any recent trauma or exacerbation of such. She denies history of IV drug use, denies fever chills, denies feeling poorly but states that this pain has gotten worse. Denies chest pain, shortness of breath, vomiting or stool changes. Denies diaphoresis or acute change to her pain, no recent trauma. Related Data Home Medications Medication Instructions Recorded Confirmed amlodipine 10 mg tablet 10 mg PO DAILY ##0 04/02/11 04/20/19 tramadol 50 mg tablet 50 mg PO Q4H PRN pain ##0 04/02/11 04/20/19 atorvastatin 80 mg tablet 80 mg PO BEDTIME ##0 04/23/17 04/20/19 spironolactone 50 mg tablet 50 mg PO DAILY ##0 04/23/17 04/20/19 [CRANBERRY] 500 mg PO QPM ##0 05/28/17 06/17/18 [MILK THISTLE] 100 mg PO QPM ##0 05/28/17 06/17/18 [PROBIOTIC] 500 mg PO QPM ##0 05/28/17 06/17/18 [TURMERIC] 200 mg PO QPM ##0 05/28/17 06/17/18 coenzyme Q10 100 mg capsule (Co 100 mg PO QPM ##0 05/28/17 06/17/18 Q-10) cyanocobalamin (vitamin B-12) 500 500 mcg PO QPM ##0 05/28/17 06/17/18 mcg tablet (Vitamin B-12) albuterol sulfate 90 mcg/actuation 2 puff inhalation PRN PRN 01/03/18 04/20/19 aerosol inhaler Shortness Of Breath ascorbic acid (vitamin C) 500 mg 1,000 mg PO DAILY 06/17/18 06/17/18 chewable tablet (Vitamin C) fluticasone propionate 230 2 puff inhalation BID 06/17/18 04/20/19 mcg-salmeterol 21 mcg/actuation HFA inhaler ipratropium 0.5 mg-albuterol 3 mg 3 ml inhalation Q4-6H PRN 06/17/18 06/17/18 (2.5 mg base)/3 mL nebulization shortness of breath or wheezing soln dabigatran etexilate 150 mg 150 mg PO BID 04/20/19 04/20/19 capsule (Pradaxa) montelukast 10 mg tablet 10 mg PO DAILY 04/20/19 04/20/19 Previous Rx's Medication Instructions Recorded oseltamivir 75 mg capsule (Tamiflu) 75 mg PO BID #6 caps 06/19/18 prednisone 20 mg tablet 20 mg PO DAILY #15 tabs 06/19/18 prednisone 20 mg tablet 20 mg PO DAILY #6 tabs 06/19/18 cyclobenzaprine 10 mg tablet 10 mg PO BEDTIME PRN muscle spasm 10/28/18 #5 tabs cyclobenzaprine 10 mg tablet 10 mg PO BEDTIME PRN muscle spasm 04/20/19 #10 tabs lidocaine 5 % topical patch 1 patch topical DAILY #30 ea 04/20/19 cyclobenzaprine 10 mg tablet 10 mg PO TID PRN muscle spasm #14 12/01/20 tabs amoxicillin 875 mg-potassium 1 tab PO BID #20 tabs 12/10/20 clavulanate 125 mg tablet (Augmentin) hydrocodone 5 mg-acetaminophen 325 1 tab PO Q4-6H PRN pain #10 tabs 12/10/20 mg tablet lidocaine 4 % topical patch 1 patch topical DAILY PRN pain #15 12/24/21 ea cyclobenzaprine 5 mg tablet 5 mg PO TID PRN muscle spasm #10 12/25/21 tabs cephalexin 500 mg capsule 500 mg PO BID 5 days #10 caps 05/09/22 hydrocodone 5 mg-acetaminophen 325 1 tab PO TID PRN pain #10 tabs 05/09/22 mg tablet lidocaine 5 % topical patch 1 patch topical DAILY PRN back 05/09/22 (Lidoderm) pain #15 ea methocarbamol 500 mg tablet 500 mg PO TID PRN musle spasm #20 05/09/22 tabs prednisone 20 mg tablet 20 mg PO DAILY 4 days #4 tabs 05/09/22 Allergies Allergy/AdvReac Type Severity Reaction Status Date / Time atenolol [ATENOLOL] Allergy Severe LUNG FILL Verified 05/09/22 15:04 WITH FLUID doxycycline [DOXYCYCLINE] Allergy Severe HIVES Verified 05/09/22 15:04 hydrochlorothiazide Allergy Severe COVERED IN Verified 05/09/22 15:04 [HYDROCHLOROTHIAZIDE] BLISTERS lisinopril [LISINOPRIL] Allergy Severe SEVERE Verified 05/09/22 15:04 COUGH metoprolol [METOPROLOL] Allergy Severe HAIR FELL Verified 05/09/22 15:04 OUT Review of Systems <SAIRA Dorado - Last Filed: 05/09/22 19:57> Review of Systems ROS Unobtainable: All systems reviewed & are unremarkable except as noted in HPI and below Patient History <SAIRA Dorado - Last Filed: 05/09/22 19:57> Medical History (Updated 05/09/22 @ 19:10 by SAIRA Dorado) Back pain Hyperlipidemia Hypertension Lazy eye of left side Pulmonary embolism Surgical History H/O section History of back surgery Social History household members: children Smoking Status: Current every day smoker alcohol intake: current substance use type: does not use Smoking Status: Current every day smoker alcohol intake frequency: 0-2 drinks per day Alcohol type: beer Substance Use Type: does not use Exam <SAIRA Dorado - Last Filed: 05/09/22 19:57> Narrative Exam Narrative: Reviewed vitals signs and nursing notes. General: cooperative, uncomfortable, in mild acute distress, well groomed HEENT: symmetrical facial expressions, dry mucous membranes Cardiovascular: regular rate and rhythm, no peripheral edema, warm extremities Respiratory: normal effort, able to speak in complete sentences, without wheezing, stridor, or abnormal breath sounds. No retractions or tachypnea. GI: abdomen soft, nontender to palpation, nondistended, without masses, rebound tenderness or exquisite tenderness with exam. MSK: moves all extremities, neurovascularly intact, no weakness, normal tone, patient has tenderness over her lower lumbar vertebrae, paraspinal musculature is tender to palpation intense as well, right-sided CVA tenderness to palpation, no abdominal tenderness to palpation Skin: brisk capillary refill, without pallor or erythema Neuro: normal speech and cognition, A&O x3, ambulatory, clear speech Psych: mental status is grossly normal, congruent mood, normal affect, pleasant and cooperative Initial Vital Signs Initial Vital Signs: Vital Signs Temperature 97.6 F 05/09/22 14:58 Pulse Rate 70 05/09/22 14:58 Respiratory Rate 16 05/09/22 14:58 Blood Pressure 182/79 H 05/09/22 14:58 Pulse Oximetry 97 05/09/22 14:58 Oxygen Delivery Method 05/09/22 14:58 <Donis Shelton DO - Last Filed: 05/09/22 22:51> Initial Vital Signs Initial Vital Signs: Vital Signs Temperature 97.6 F 05/09/22 14:58 Pulse Rate 70 05/09/22 14:58 Respiratory Rate 16 05/09/22 14:58 Blood Pressure 182/79 H 05/09/22 14:58 Pulse Oximetry 97 05/09/22 14:58 Oxygen Delivery Method 05/09/22 14:58 Course <SAIRA Dorado - Last Filed: 05/09/22 19:57> Orders Ordered: ED Orders 05/09/22 15:30 Complete Blood Count AUTO DIFF Stat Comprehensive Metabolic Panel Stat Lipase Stat 05/09/22 17:29 Urine Culture Stat Urine Microscopic Stat 05/09/22 17:58 CT kidney ureter bladder (KUB) Stat Discontinued Medications Hydrocodone Bitart/Acetaminophen (Hydrocodone/Acet 5/325 Tablet) 1 tab PO NOW ONE Stop: 05/09/22 18:01 Last Admin: 05/09/22 18:13 Dose: 1 tab Documented By: NR Hydrocodone Bitart/Acetaminophen (Hydrocodone/Acet 5/325 Prepack) 1 bottle MISC SEEINSTR ONE Stop: 05/09/22 19:18 Last Admin: 05/09/22 19:33 Dose: 1 bottle Documented By: GC Cephalexin HCl (Cephalexin 250 Mg Capsule) 500 mg PO NOW ONE Stop: 05/09/22 19:12 Last Admin: 05/09/22 19:33 Dose: 500 mg Documented By: YRIS Ketorolac Tromethamine (Ketorolac 30 Mg/Ml Vial) 30 mg IM NOW ONE Stop: 05/09/22 18:01 Last Admin: 05/09/22 18:13 Dose: 30 mg Documented By: MONET Lidocaine (Lidocaine Patch 1 Each Adh..Patch) 1 each TOP NOW ONE Stop: 05/09/22 18:01 Last Admin: 05/09/22 18:13 Dose: 1 each Documented By: NR Methocarbamol (Methocarbamol 500 Mg Tablet) 500 mg PO NOW ONE Stop: 05/09/22 18:01 Last Admin: 05/09/22 18:12 Dose: 500 mg Documented By: MONET Prednisone (Prednisone 20 Mg Tablet) 40 mg PO NOW ONE Stop: 05/09/22 19:11 Last Admin: 05/09/22 19:33 Dose: 40 mg Documented By: YRIS Vital Signs Vital signs: Vital Signs - 8 hr 05/09/22 14:58 05/09/22 19:37 Temperature 97.6 F 98 F Pulse Rate 70 66 Respiratory Rate 16 16 Blood Pressure 182/79 H 128/73 Pulse Oximetry 97 97 Oxygen Delivery Method Room Air Room Air <Donis Shelton, - Last Filed: 05/09/22 22:51> Orders Ordered: ED Orders 05/09/22 15:30 Complete Blood Count AUTO DIFF Stat Comprehensive Metabolic Panel Stat Lipase Stat 05/09/22 17:29 Urine Culture Stat Urine Microscopic Stat 05/09/22 17:58 CT kidney ureter bladder (KUB) Stat Discontinued Medications Hydrocodone Bitart/Acetaminophen (Hydrocodone/Acet 5/325 Tablet) 1 tab PO NOW ONE Stop: 05/09/22 18:01 Last Admin: 05/09/22 18:13 Dose: 1 tab Documented By: MONET Hydrocodone Bitart/Acetaminophen (Hydrocodone/Acet 5/325 Prepack) 1 bottle MISC SEEINSTR ONE Stop: 05/09/22 19:18 Last Admin: 05/09/22 19:33 Dose: 1 bottle Documented By: YRIS Cephalexin HCl (Cephalexin 250 Mg Capsule) 500 mg PO NOW ONE Stop: 05/09/22 19:12 Last Admin: 05/09/22 19:33 Dose: 500 mg Documented By: YRIS Ketorolac Tromethamine (Ketorolac 30 Mg/Ml Vial) 30 mg IM NOW ONE Stop: 05/09/22 18:01 Last Admin: 05/09/22 18:13 Dose: 30 mg Documented By: MONET Lidocaine (Lidocaine Patch 1 Each Adh..Patch) 1 each TOP NOW ONE Stop: 05/09/22 18:01 Last Admin: 05/09/22 18:13 Dose: 1 each Documented By: MONET Methocarbamol (Methocarbamol 500 Mg Tablet) 500 mg PO NOW ONE Stop: 05/09/22 18:01 Last Admin: 05/09/22 18:12 Dose: 500 mg Documented By: NR Prednisone (Prednisone 20 Mg Tablet) 40 mg PO NOW ONE Stop: 05/09/22 19:11 Last Admin: 05/09/22 19:33 Dose: 40 mg Documented By: YRIS Vital Signs Vital signs: Vital Signs - 8 hr 05/09/22 14:58 05/09/22 19:37 Temperature 97.6 F 98 F Pulse Rate 70 66 Respiratory Rate 16 16 Blood Pressure 182/79 H 128/73 Pulse Oximetry 97 97 Oxygen Delivery Method Room Air Room Air MDM - Back Pain/Injury <Isela Roland, [facility] - Last Filed: 05/09/22 19:57> Lab Data 05/09/22 15:30 05/09/22 15:30 Labs: Lab Results 05/09/22 05/09/22 05/09/22 Range/Units 15:30 15:30 17:29 WBC 6.6 (4.5-11.0) X10^3/uL RBC 4.87 (4.0-5.2) X10^6/uL Hgb 15.2 (12.0-16.0) g/dL Hct 46.3 H (36-46) % MCV 94.9 (80-100) fL MCH 31.1 (26-34) PG MCHC 32.8 (30-36) % RDW 14.3 (11.6-14.8) % Plt Count 207 (150-400) X10^3/uL Neut % (Auto) 76.3 H (50-75) % Lymph % (Auto) 12.5 L (25-40) % Andrews % (Auto) 8.1 (3-14) % Eos % (Auto) 2.7 (2-4) % Baso % (Auto) 0.4 (0-2) % Neut # (Auto) 5100 (6740-0794) /uL Lymph # (Auto) 800 L (2718-3662) /uL Andrews # (Auto) 500 (0-900) /uL Eos # (Auto) 200 (0-450) /uL Baso # (Auto) 0 (0-100) /uL Sodium 138 (137-145) mmol/L Potassium 4.5 (3.4-5.1) mmol/L Chloride 104 (98-107) mmol/L Carbon Dioxide 28 (22-32) mmol/L BUN 17 (7-17) mg/dL Creatinine 0.61 (0.52-1.04) mg/dL Estimated GFR > 60 (>60) mL/min BUN/Creatinine Ratio 27.9 H (6-22) Glucose 92 (80-110) mg/dL Calcium 9.2 (8.4-10.2) mg/dL Total Bilirubin 1.0 (0.2-1.3) mg/dL AST 34 (14-36) IU/L ALT 29 (<35) IU/L Alkaline Phosphatase 87 (38-126) U/L Total Protein 7.1 (6.3-8.2) g/dL Albumin 4.3 (3.5-5.0) g/dL Globulin 2.8 (1.7-4.1) g/dL Albumin/Globulin Ratio 1.5 (1.0-2.8) Lipase 65 (23-300) U/L Urine RBC 0-1/hpf (0-5/HPF) Urine WBC 0-1/hpf (0-5/HPF) Ur Squamous Epith Cells 0-1 /hpf (0-5/HPF) Urine Bacteria Few (2-10) H (None) Ur Culture Indicated? Cult not indicated Urine Dip Bedside Urine Glucose Negative Bedside Urine Bilirubin - Negative Bedside Urine Ketone - Negative Urine Specific [place] 1.015 Bedside Urine Occult Blood - Negative Bedside Urine pH 6.0 Bedside Urine Protein - Negative Bedside Urine Urobilinogen - Negative Bedside Urine Nitrite - Negative Bedside Urine Leukocytes - Negative Esterase Imaging Data CT scan - abdomen/pelvis: Radiologist's Impression: PROCEDURE:? CT KIDNEY URETER BLADDER (KUB) ? INDICATIONS:? rt flank pain worsening ? TECHNIQUE:? Axial sections were acquired from the lung bases to the pubic symphysis.? Coronal and sagittal reformats were performed.? For radiation dose reduction, the following was used: ?automated exposure control, adjustment of mA and/or kV according to patient size.? ? COMPARISON:? None. ? FINDINGS: ? Lower thorax: The lung bases are clear.? Heart size normal.? No hiatal hernia. ? Liver:? Normal in size and attenuation. No contour deformity present. ? Biliary system:? Calcified stones noted in the lumen of the gallbladder.? No pericholecystic inflammatory change.? No intra or extrahepatic bile duct dilation. ? Pancreas:? Unremarkable without mass or inflammation evident. ? Spleen:? Normal in size and density.? Calcified splenic granulomas noted ? Adrenals:? Normal morphology and density. ? Reproductive system:? Unremarkable as visualized. ? Urinary system:? Normal renal size and attenuation. No renal calculi, hydronephrosis, or solid mass present.? Urinary bladder unremarkable. ? Gastrointestinal system:? The bowel is unremarkable without evidence of bowel obstruction or inflammation. The stomach appears unremarkable. ? Appendix:? Normal appendix identified.? No evidence of appendicitis. ? Peritoneal spaces:? No mesenteric or retroperitoneal adenopathy.? No free air.? No free fluid.? ? Vasculature:? Aortic atherosclerotic vascular calcification noted without evidence of aneurysm. ? Abdominal wall:? Periumbilical ventral hernia contains fat without bowel involvement. ? Musculoskeletal:? Normal bone mineralization.? Degenerative disc disease and arthropathy noted in lower lumbar spine.? No acute fractures.? ? IMPRESSION: ? 1. Chronic degenerative changes including periumbilical ventral hernia ? 2. No renal calculi or obstructive uropathy.? Approved by: Reji Ocampo M.D. on 05/09/2022 at 17:49? [facility] Narrative Medical decision making narrative: Chief Complaint: Worsening back pain, radiation down her left leg, flank pain Independent historian: Patient Differential diagnoses include but are not limited to: biliary disease, GERD, bowel obstruction, perforated viscus, appendicitis, colitis, diverticulitis, IBD/IBS, intestinal ischemia, obstructive uropathy, lumbar radiculopathy, acute cystitis, pyelonephritis, acute hepatitis, mesenteric ischemia, acute cystitis, fibroids, ovarian mass/cyst, torsion, PID patient denies any vaginal complaint, denies dysuria. Doubt atypical ACS. No peritoneal signs on abdominal exam. Patient remains p.o. tolerant. Serial abdominal exam without increase in abdominal pain. Extensive conversation about ER return precautions and need for close follow-up. I have independently reviewed the patient's vital signs and nursing notes as well as prior records if available. Pertinent lab findings reviewed: CBC is unremarkable except for mild hemoconc entration, CMP is unremarkable as well, UA shows few bacteria without contamination Pertinent Imaging reviewed: CT KUB is negative for acute abnormality but does show chronic degenerative changes including a periumbilical ventral hernia, no renal calculi or obstructive uropathy. Course of care: Lab work, CT KUB, UA ordered and pending, ordered for patient pain control based on history and exam with Robaxin, Toradol, lidocaine patch, and hydrocodone. She is nontoxic appearing, has tenderness over her lumbar vertebrae, with right-sided paraspinal musculature tenderness and CVA tenderness with bacteria in her urine. She has had 3 weeks of symptoms and has history of lumbar radiculopathy symptoms which have been progressive without weakness. She has tenderness over her lumbar spine to palpation, she has paraspinal musculature tenderness to palpation as well as tension, she is ambulatory, straight leg lift exacerbates her symptoms. She does have CVA tenderness on the left however this could be related to her muscular tension and pain. She does not have history of urinary tract infections or resistance to bacteria however her symptoms have been persistent for 3 weeks, she likely strained and exacerbated her chronic low back pain with vacuuming, will treat her with prednisone for inflammation since she is anticoagulated and can not be on NSAIDs I prescribed for her methocarbamol, prednisone 20 mg daily for the next 4 days for acute low back pain exacerbation, sciatica, CT shows evidence of a ventral hernia, patient can follow-up with her primary care provider if this is causing any symptomatic constipation or other symptoms. Patient states that she has loose stool at baseline so no stool softener as needed for opioid medication. I encouraged her to follow-up with her primary care provider for referral to physical therapy, a test of cure for her urine and or follow-up for her ventral hernia if this is problem. CT KUB shows chronic degenerative changes including the ventral hernia, no renal calculi obstructive uropathy, no acute otherwise. There is no bowel involvement to hernia. Social considerations that may affect disposition: none Questions are addressed and there is agreement with the plan and for follow-up. Patient is appropriate for outpatient management. MIPS: This encounter doesn't have any diagnosis' associated with MIPS criteria. <Donis Shelton DO - Last Filed: 05/09/22 22:51> Lab Data Labs: Lab Results 05/09/22 05/09/22 05/09/22 Range/Units 15:30 15:30 17:29 WBC 6.6 (4.5-11.0) X10^3/uL RBC 4.87 (4.0-5.2) X10^6/uL Hgb 15.2 (12.0-16.0) g/dL Hct 46.3 H (36-46) % MCV 94.9 (80-100) fL MCH 31.1 (26-34) PG MCHC 32.8 (30-36) % RDW 14.3 (11.6-14.8) % Plt Count 207 (150-400) X10^3/uL Neut % (Auto) 76.3 H (50-75) % Lymph % (Auto) 12.5 L (25-40) % Andrews % (Auto) 8.1 (3-14) % Eos % (Auto) 2.7 (2-4) % Baso % (Auto) 0.4 (0-2) % Neut # (Auto) 5100 (1134-1484) /uL Lymph # (Auto) 800 L (6843-3036) /uL Andrews # (Auto) 500 (0-900) /uL Eos # (Auto) 200 (0-450) /uL Baso # (Auto) 0 (0-100) /uL Sodium 138 (137-145) mmol/L Potassium 4.5 (3.4-5.1) mmol/L Chloride 104 (98-107) mmol/L Carbon Dioxide 28 (22-32) mmol/L BUN 17 (7-17) mg/dL Creatinine 0.61 (0.52-1.04) mg/dL Estimated GFR > 60 (>60) mL/min BUN/Creatinine Ratio 27.9 H (6-22) Glucose 92 (80-110) mg/dL Calcium 9.2 (8.4-10.2) mg/dL Total Bilirubin 1.0 (0.2-1.3) mg/dL AST 34 (14-36) IU/L ALT 29 (<35) IU/L Alkaline Phosphatase 87 (38-126) U/L Total Protein 7.1 (6.3-8.2) g/dL Albumin 4.3 (3.5-5.0) g/dL Globulin 2.8 (1.7-4.1) g/dL Albumin/Globulin Ratio 1.5 (1.0-2.8) Lipase 65 (23-300) U/L Urine RBC 0-1/hpf (0-5/HPF) Urine WBC 0-1/hpf (0-5/HPF) Ur Squamous Epith Cells 0-1 /hpf (0-5/HPF) Urine Bacteria Few (2-10) H (None) Ur Culture Indicated? Cult not indicated Urine Dip Bedside Urine Glucose Negative Bedside Urine Bilirubin - Negative Bedside Urine Ketone - Negative Urine Specific [place] 1.015 Bedside Urine Occult Blood - Negative Bedside Urine pH 6.0 Bedside Urine Protein - Negative Bedside Urine Urobilinogen - Negative Bedside Urine Nitrite - Negative Bedside Urine Leukocytes - Negative Esterase Discharge Plan Departure Patient Disposition: Home Clinical Impression: Acute lumbar radiculopathy Sciatica Qualifiers: Laterality: right Qualified Code(s): M54.31 - Sciatica, right side Acute cystitis Qualifiers: Hematuria presence: without hematuria Qualified Code(s): N30.00 - Acute cystitis without hematuria Ventral hernia Qualifiers: Obstruction and gangrene presence: without obstruction or gangrene Qualified Code(s): K43.9 - Ventral hernia without obstruction or gangrene Instructions: DI for Acute Cystitis, DI for Back Pain With Sciatica, Ventral Hernia, Lumbar Radiculopathy Activity Restrictions/Additional Instructions: *You have been diagnosed with a ventral hernia which you may or may not know about, this can cause stool changes sometimes or bowel obstruction but no evidence of that today, this is most likely related to low back your urine showed a small amount of bacteria and I do not think this is very significant but we should treat your symptoms and will treat this for mild urinary tract infection as well to see if your symptoms improve afterwards.. No evidence of kidney stones or other intra-abdominal/back problems other than your chronic pain. Since this has been going on for 3 weeks, we will treat this for exacerbation of her chronic pain, use these medications as prescribed to help treat your symptoms, occasional pain pills as needed, a stool softener if you have constipation or for saw stool. Please stay hydrated, schedule follow up with your primary care provider, you may benefit from a referral to physical therapy and further evaluation of your back pain, there is evidence of degenerative disc disease and osteoarthritis. Please use something topical in addition to the oral pain medications to treat her symptoms. Methocarbamol for muscle spasms and pain related to the soft tissue, the steroid should help decrease inflammation since you are on a blood thinner and can not take ibuprofen. *What to do: *Please continue to take your regular medications as directed. [x ] New medication prescriptions sent to your pharmacy: [ [facility] [place]] [ ] New medication written as a paper prescription [ ] No new medications given *Please follow up with your primary care provider in 2-3 days, call for an appointment. Let them know you were seen in the Emergency Department and that we asked that you be seen for follow-up. We will electronically transmit a record of today's note if your PCP is in our system *If you do not have a primary care provider please contact [phone] to establish care with one of [facility] primary care providers. *Return to Emergency Department if you should have any new, worsening, or concerning symptoms, such as [fever greater than 101F, chills, worsening pain, persistent vomiting or other bothersome symptoms]. Prescriptions: New cephalexin 500 mg capsule 500 mg PO BID 5 Days Qty: 10 0RF methocarbamol 500 mg tablet 500 mg PO TID PRN (Reason: musle spasm) Qty: 20 0RF prednisone 20 mg tablet 20 mg PO DAILY 4 Days Qty: 4 0RF lidocaine [Lidoderm] 5 % adhesive patch,medicated 1 patch topical DAILY PRN (Reason: back pain) Qty: 15 0RF Rx Instructions: leave on most painful area for up to 12 hrs hydrocodone-acetaminophen 5-325 mg tablet 1 tab PO TID PRN (Reason: pain) Qty: 10 0RF No Action amlodipine 10 MG tablet 10 mg PO DAILY Qty: 0 tramadol 50 MG tablet 50 mg PO Q4H PRN (Reason: pain) Qty: 0 spironolactone 50 MG tablet 50 mg PO DAILY Qty: 0 atorvastatin 80 MG tablet 80 mg PO BEDTIME Qty: 0 [CRANBERRY] capsule 500 mg PO QPM Qty: 0 [MILK THISTLE] capsule 100 mg PO QPM Qty: 0 [PROBIOTIC] tablet 500 mg PO QPM Qty: 0 [TURMERIC] tablet 200 mg PO QPM Qty: 0 cyanocobalamin (vitamin B-12) [Vitamin B-12] 500 mcg Tablet 500 mcg PO QPM Qty: 0 coenzyme Q10 [Co Q-10] 100 mg Capsule 100 mg PO QPM Qty: 0 ascorbic acid (vitamin C) [Vitamin C] 500 mg Tablet,Chewable 1,000 mg PO DAILY ipratropium-albuterol 0.5 mg-3 mg(2.5 mg base)/3 mL solution for nebulization 3 ml INHALATION Q4-6H PRN (Reason: shortness of breath or wheezing) fluticasone propion-salmeterol 230-21 mcg/actuation HFA aerosol inhaler 2 puff Inhalation BID prednisone 20 mg tablet 20 mg PO DAILY Qty: 6 0RF prednisone 20 mg tablet 20 mg PO DAILY Qty: 15 0RF Rx Instructions: Take 40 mg daily for 4 days, then take 20 mg daily for 4 days and then take 10 mg daily for 4 days. oseltamivir [Tamiflu] 75 mg Capsule 75 mg PO BID Qty: 6 0RF cyclobenzaprine 10 mg tablet 10 mg PO BEDTIME PRN (Reason: muscle spasm) Qty: 5 0RF Rx Instructions: This could cause drowsiness montelukast 10 mg tablet 10 mg PO DAILY Pradaxa 150 mg capsule 150 mg PO BID cyclobenzaprine 10 mg tablet 10 mg PO BEDTIME PRN (Reason: muscle spasm) Qty: 10 0RF lidocaine 5 % adhesive patch,medicated 1 patch TOP DAILY Qty: 30 0RF Rx Instructions: leave on most painful area for up to 12 hrs cyclobenzaprine 10 mg tablet 10 mg PO TID PRN (Reason: muscle spasm) Qty: 14 0RF albuterol sulfate 90 mcg/actuation HFA aerosol inhaler 2 puff Inhalation PRN PRN (Reason: Shortness Of Breath) hydrocodone-acetaminophen 5-325 mg tablet 1 tab PO Q4-6H PRN (Reason: pain) Qty: 10 0RF amoxicillin-pot clavulanate [Augmentin] 875-125 mg tablet 1 tab PO BID Qty: 20 0RF lidocaine 4 % adhesive patch,medicated 1 patch topical DAILY PRN (Reason: pain) Qty: 15 0RF Rx Instructions: Apply for 12 hours only then remove cyclobenzaprine 5 mg tablet 5 mg PO TID PRN (Reason: muscle spasm) Qty: 10 0RF Referrals: Vaughn River MD [Primary Care Provider] - Stand Alone Forms: Patient Portal/API <Donis Shelton DO - Last Filed: 05/09/22 22:51> Cosign ED Attending Cosignature Attestation: I was immediately available in the department for consultation. This documentation has been reviewed and I agree with assessment and plan. Supervised by Donis Shelton DO
[2022-05-09] MEDS: methocarbamoL 500 MG TABLET PO (18:12)
[2022-05-09] MEDS: LIDOCAINE PATCH 1 EACH ADH..PATCH TOP (18:13)
[2022-05-09] MEDS: HYDROCODONE/ACET 5/325 TABLET 1 TAB PO (18:13)
[2022-05-09] MEDS: KETOROLAC 30 MG/ML VIAL IM (18:13)
[2022-05-09] MEDS: predniSONE 20 MG TABLET 40 MG PO (19:33)
[2022-05-09] MEDS: cephALEXin 250 MG CAPSULE 500 MG PO (19:33)
[2022-05-09] MEDS: HYDROCODONE/ACET 5/325 PREPACK 1 BOTTLE MISC (19:33)
[2022-05-09 19:37] VITALS: BP 128/73; PULSE 66; RESP 16; TEMP 36.6; O2SAT 97
== END 2022-05-09 19:30 | disposition home or self-care (01) ==
PROVIDERS: Emergency Medicine; Emergency Provider Nurse Practitioner Critical Care Medicine; PCP Family Medicine
DX: M54.16 Radiculopathy, lumbar region (principal); M54.31 Sciatica, right side; N30.00 Acute cystitis without hematuria; K43.9 Ventral hernia without obstruction or gangrene; Z79.01 Long term (current) use of anticoagulants; Z79.899 Other long term (current) drug therapy
CPT/HCPCS: 36415; 74176; 80053; 81003; 81015; 83690; 85025; 87086; 96372; 99284; J1885

== ENCOUNTER → 2022-10-19 15:15 | Outpatient (CLI) | payer OTHER, SELFPAY ==
[2018-06-17 17:30] VITALS: BMI 38.4
--- NOTE | 2022-10-19 | DI.RAD.S_ITS ---
PROCEDURE: XR KUB INDICATIONS: EPIGASTRIC PAIN TECHNIQUE: One view of the abdomen acquired. COMPARISON: None. FINDINGS: Surgical changes and devices: None. Bowel: Bowel gas pattern is normal. Soft tissues: No suspicious abdominal calcifications. Visualized solid organ contours appear normal in size. Bones: No suspicious bony lesions. IMPRESSION: Normal bowel gas pattern. Dictated by: Randall Hall M.D. on 10/19/2022 at 17:54 Approved by: Randall Hall M.D. on 10/19/2022 at 17:55
--- NOTE | 2022-10-19 | DI.US.S_ITS ---
PROCEDURE: US ABDOMEN LIMITED INDICATIONS: EPIGASTRIC PAIN TECHNIQUE: Real-time scanning was performed of the abdominal and retroperitoneal organs, with image documentation. COMPARISON: None. FINDINGS: Liver: Increased liver echogenicity with posterior attenuation. Gallbladder: Cholelithiasis without wall thickening or adjacent fat stranding to suggest acute cholecystitis. Biliary ducts: Intrahepatic bile ducts are non-dilated. Extrahepatic bile duct caliber measures 5 mm. Normal is 6-7 mm or less in diameter, or 10 mm or less post-cholecystectomy. Pancreas: Visualized portions of the pancreas are sonographically normal. Miscellaneous: No free abdominal fluid. IMPRESSION: Cholelithiasis without acute cholecystitis. Moderate to severe patent steatosis. Dictated by: Fabrice Avendano M.D. on 10/19/2022 at 16:41 Approved by: Fabrice Avendano M.D. on 10/19/2022 at 16:42
== END ==
PROVIDERS: PCP Family Medicine; Referring Provider Family Medicine; Visit Provider Family Medicine
DX: R10.13 Epigastric pain (principal); K80.20 Calculus of gallbladder without cholecystitis without obstruction; K76.0 Fatty (change of) liver, not elsewhere classified
CPT/HCPCS: 74018; 76705

== ENCOUNTER → 2023-05-31 15:09 | Outpatient (CLI) | payer OTHER, SELFPAY ==
[2018-06-17 17:30] VITALS: BMI 38.4
--- NOTE | 2023-05-31 | DI.RAD.S_ITS ---
PROCEDURE: XR THORACIC SPINE 2V INDICATIONS: M54.9 TECHNIQUE: 3 views of the thoracic spine were acquired. COMPARISON: None. FINDINGS: Bones: No fractures or dislocations. No suspicious bony lesions. 12 pairs of ribs are noted, and appear intact where visualized. Multilevel [id number] disc height loss. Soft tissues: No paravertebral stripe thickening. IMPRESSION: No acute bony abnormality. Dictated by: Fabrice Avendano M.D. on 05/31/2023 at 17:00 Approved by: Fabrice Avendano M.D. on 05/31/2023 at 17:01
--- NOTE | 2023-05-31 | DI.RAD.S_ITS ---
PROCEDURE: XR LUMBAR SPINE 2-3V INDICATIONS: M54.9 TECHNIQUE: 3 views of the lumbar spine were acquired. COMPARISON: [facility], , XR LUMBAR SPINE 2-3V, 12/26/2018, 12:44. FINDINGS: Bones: 5 [id number] vertebrae are present. Convex right scoliosis, Echevarria angle of 25?. Moderate disc height loss at all levels. Diffuse facet arthrosis. Soft tissues: Overlying bowel gas pattern is normal. No suspicious soft tissue calcifications. IMPRESSION: Moderate, multilevel degenerative disc disease and diffuse facet arthrosis. Not significantly changed from prior. Convex right scoliosis. Dictated by: Fabrice Avendano M.D. on 05/31/2023 at 16:57 Approved by: Fabrice Avendano M.D. on 05/31/2023 at 16:59
== END ==
LOC: RAD 15:11
PROVIDERS: PCP Family Medicine; Referring Provider Family Medicine; Visit Provider Family Medicine
DX: M51.36 Other intervertebral disc degeneration, lumbar region (principal); M47.816 Spondylosis without myelopathy or radiculopathy, lumbar region; M41.9 Scoliosis, unspecified; M54.9 Dorsalgia, unspecified
CPT/HCPCS: 72070; 72100

== ENCOUNTER 2023-06-12 08:43 | Emergency (ER) | payer MEDICARE, SELFPAY ==
[2018-06-17 17:30] VITALS: BMI 38.4
[2023-06-12 08:45] VITALS: PULSE 70; O2SAT 94
[2023-06-12 08:47] VITALS: BP 208/86; PULSE 76; RESP 16; TEMP 37.1; O2SAT 97; BMI 40.2
--- NOTE | 2023-06-12 08:56 | DI.RAD.S_ITS ---
PROCEDURE: XR CHEST 1V INDICATIONS: Shortness of breath TECHNIQUE: One view of the chest was acquired. COMPARISON: [facility], CR, XR CHEST 2V, 10/05/2019, 15:47. FINDINGS: Surgical changes and devices: None. Lungs and pleura: There is mild pulmonary vascular congestion. Blunting of left costophrenic angle is seen suggestive of trace left pleural effusion. No definite focal infiltrate. No gross pneumothorax. Mediastinum: Mediastinal contours appear normal. Heart size is normal. Bones and chest wall: No suspicious bony lesions. Overlying soft tissues appear unremarkable. IMPRESSION: Mild congestion. Trace left pleural effusion. No definite focal infiltrate. No pneumothorax. Dictated by: Atul Porras M.D. on 06/12/2023 at 9:21 Approved by: Atul Porras M.D. on 06/12/2023 at 9:21
[2023-06-12 09:00] VITALS: PULSE 71; RESP 28
[2023-06-12 09:09] LABS: Add Manual Diff / Slide Review NO; Basophils Absolute Auto 0 /uL (0-100); Basophils Percent Auto 0.9 % (0-2); Eosinophils Absolute Auto 100 /uL (0-450); Eosinophils Percent Auto 1.8 % (2-4); Hematocrit 40.4 % (36-46); Hemoglobin 13.5 g/dL (12.0-16.0); Lymphocytes Absolute Auto 1000 /uL (1100-4500); Mean Corpuscular HGB Conc 33.4 % (30-36); Mean Corpuscular Hemoglobin 32.4 PG (26-34); Mean Corpuscular Volume 97.1 fL (80-100); Monocytes Absolute Auto 500 /uL (0-900); Monocytes Percent Auto 10.2 % (3-14); Neutrophils Absolute Auto 3200 /uL (1500-7000); Neutrophils Percent Auto 67.1 % (50-75); Platelet Count 154 X10^3/uL (150-400); Red Blood Cell Count 4.16 X10^6/uL (4.0-5.2); Red Cell Distribution Width 14.6 % (11.6-14.8); White Blood Cell Count 4.8 X10^3/uL (4.5-11.0)
[2023-06-12 09:15] VITALS: PULSE 70; RESP 22; O2SAT 98
[2023-06-12] MEDS: ALBUTEROL/IPRATROPIUM 3 ML AMPUL INH (09:15)
[2023-06-12 09:22] LABS: Alanine Aminotransferase 41 IU/L (<35); Albumin 4.1 g/dL (3.5-5.0); Albumin Globulin Ratio 1.5 (1.0-2.8); Alkaline Phosphatase 84 U/L (38-126); Aspartate Aminotransferase 60 IU/L (14-36); BUN Creatinine Ratio 20.7 (6-22); Bilirubin Total 0.6 mg/dL (0.2-1.3); Blood Urea Nitrogen 12 mg/dL (7-17); Calcium 9.1 mg/dL (8.4-10.2); Carbon Dioxide 25 mmol/L (22-32); Chloride 110 mmol/L (98-107); Estimated Glomerular Filt Rate > 60 mL/min (>60); Globulin 2.8 g/dL (1.7-4.1); Glucose 101 mg/dL (80-110); HEMOLYSIS 19 (0-50); Potassium 3.3 mmol/L (3.4-5.1); Sodium 143 mmol/L (137-145); Total Protein 6.9 g/dL (6.3-8.2)
[2023-06-12 09:30] VITALS: PULSE 69; O2SAT 99
[2023-06-12 09:30] LABS: NT-proBNP (BNP-Adult 18+) 319 pg/mL (<125)
--- NOTE | 2023-06-12 09:47 | RT ---
pt nuha rosemary tx well, no distress noted and on room air
[2023-06-12 09:48] LABS: Prothrombin Time 11.8 SECONDS (9.4-12.5)
[2023-06-12 09:58] LABS: Lactate (Lactic Acid) 2.1 mmol/L (0.7-2.1)
[2023-06-12 09:58] LABS: Alanine Aminotransferase 40 IU/L (<35); Albumin Globulin Ratio 1.4 (1.0-2.8); Alkaline Phosphatase 82 U/L (38-126); Aspartate Aminotransferase 64 IU/L (14-36); BUN Creatinine Ratio 21.1 (6-22); Bilirubin Total 0.6 mg/dL (0.2-1.3); Blood Urea Nitrogen 12 mg/dL (7-17); Calcium 9.1 mg/dL (8.4-10.2); Carbon Dioxide 24 mmol/L (22-32); Chloride 110 mmol/L (98-107); Estimated Glomerular Filt Rate > 60 mL/min (>60); Globulin 2.9 g/dL (1.7-4.1); Glucose 101 mg/dL (80-110); HEMOLYSIS 22 (0-50); Potassium 3.2 mmol/L (3.4-5.1); Sodium 143 mmol/L (137-145); Total Protein 6.9 g/dL (6.3-8.2)
[2023-06-12 10:00] VITALS: PULSE 72; RESP 24; O2SAT 97
[2023-06-12 10:09] LABS: NT-proBNP (BNP-Adult 18+) 319 pg/mL (<125); Troponin I < 0.012 ng/mL (0.01-0.034)
--- NOTE | 2023-06-12 10:24 | ED.SOB ---
HPI - SOB/Dyspnea General Chief Complaint: Shortness of Breath/Dyspnea Stated Complaint: Asthma History of Present Illness HPI Narrative: 68-year-old female smoker with a history of asthma/COPD presenting with dyspnea. She arrives by ambulance. Patient reports she has had URI symptoms for a couple of days, has not had fevers he has not having chest pain. She woke this morning quite short of breath, got no relief from her inhalers and called EMS. She was given nebulized albuterol EN route as well as 125 of Solu-Medrol it is now feeling much better. Related Data Home Medications Medication Instructions Recorded Confirmed amlodipine 10 mg tablet 10 mg PO DAILY ##0 04/02/11 04/20/19 tramadol 50 mg tablet 50 mg PO Q4H PRN pain ##0 04/02/11 04/20/19 atorvastatin 80 mg tablet 80 mg PO BEDTIME ##0 04/23/17 04/20/19 spironolactone 50 mg tablet 50 mg PO DAILY ##0 04/23/17 04/20/19 [CRANBERRY] 500 mg PO QPM ##0 05/28/17 06/17/18 [MILK THISTLE] 100 mg PO QPM ##0 05/28/17 06/17/18 [PROBIOTIC] 500 mg PO QPM ##0 05/28/17 06/17/18 [TURMERIC] 200 mg PO QPM ##0 05/28/17 06/17/18 coenzyme Q10 100 mg capsule (Co 100 mg PO QPM ##0 05/28/17 06/17/18 Q-10) cyanocobalamin (vitamin B-12) 500 500 mcg PO QPM ##0 05/28/17 06/17/18 mcg tablet (Vitamin B-12) albuterol sulfate 90 mcg/actuation 2 puff inhalation PRN PRN 01/03/18 04/20/19 aerosol inhaler Shortness Of Breath ascorbic acid (vitamin C) 500 mg 1,000 mg PO DAILY 06/17/18 06/17/18 chewable tablet (Vitamin C) fluticasone propionate 230 2 puff inhalation BID 06/17/18 04/20/19 mcg-salmeterol 21 mcg/actuation HFA inhaler ipratropium 0.5 mg-albuterol 3 mg 3 ml inhalation Q4-6H PRN 06/17/18 06/17/18 (2.5 mg base)/3 mL nebulization shortness of breath or wheezing soln dabigatran etexilate 150 mg 150 mg PO BID 04/20/19 04/20/19 capsule (Pradaxa) montelukast 10 mg tablet 10 mg PO DAILY 04/20/19 04/20/19 Previous Rx's Medication Instructions Recorded oseltamivir 75 mg capsule (Tamiflu) 75 mg PO BID #6 caps 06/19/18 prednisone 20 mg tablet 20 mg PO DAILY #15 tabs 06/19/18 prednisone 20 mg tablet 20 mg PO DAILY #6 tabs 06/19/18 cyclobenzaprine 10 mg tablet 10 mg PO BEDTIME PRN muscle spasm 10/28/18 #5 tabs cyclobenzaprine 10 mg tablet 10 mg PO BEDTIME PRN muscle spasm 04/20/19 #10 tabs lidocaine 5 % topical patch 1 patch topical DAILY #30 ea 04/20/19 cyclobenzaprine 10 mg tablet 10 mg PO TID PRN muscle spasm #14 12/01/20 tabs amoxicillin 875 mg-potassium 1 tab PO BID #20 tabs 12/10/20 clavulanate 125 mg tablet (Augmentin) hydrocodone 5 mg-acetaminophen 325 1 tab PO Q4-6H PRN pain #10 tabs 12/10/20 mg tablet lidocaine 4 % topical patch 1 patch topical DAILY PRN pain #15 12/24/21 ea cyclobenzaprine 5 mg tablet 5 mg PO TID PRN muscle spasm #10 12/25/21 tabs hydrocodone 5 mg-acetaminophen 325 1 tab PO TID PRN pain #10 tabs 05/09/22 mg tablet lidocaine 5 % topical patch 1 patch topical DAILY PRN back 05/09/22 (Lidoderm) pain #15 ea methocarbamol 500 mg tablet 500 mg PO TID PRN musle spasm #20 05/09/22 tabs prednisone 50 mg tablet 50 mg PO DAILY #5 tabs 06/12/23 Allergies Allergy/AdvReac Type Severity Reaction Status Date / Time atenolol [ATENOLOL] Allergy Severe LUNG FILL Verified 05/09/22 15:04 WITH FLUID doxycycline [DOXYCYCLINE] Allergy Severe HIVES Verified 05/09/22 15:04 hydrochlorothiazide Allergy Severe COVERED IN Verified 05/09/22 15:04 [HYDROCHLOROTHIAZIDE] BLISTERS lisinopril [LISINOPRIL] Allergy Severe SEVERE Verified 05/09/22 15:04 COUGH metoprolol [METOPROLOL] Allergy Severe HAIR FELL Verified 05/09/22 15:04 OUT Patient History Medical History (Updated 06/12/23 @ 10:14 by Sebas Ellington MD) Back pain Lazy eye of left side Pulmonary embolism Hypertension Hyperlipidemia Surgical History History of back surgery H/O section Social History household members: children Smoking Status: Current every day smoker alcohol intake: current substance use type: does not use Smoking Status: Current every day smoker alcohol intake frequency: 0-2 drinks per day Alcohol type: beer Substance Use Type: does not use Exam Narrative Exam Narrative: Alert, no acute distress HEENT: Normocephalic, atraumaitic moist mucus membranes Neck: Supple no midline tenderness Lungs: Speaking in full sentences, no respiratory distress, expiratory wheezes throughout but good air movement Heart: Regular rhythm and rate no murmur Abdomen: Normal bowel sounds, soft and nontender Extremeties: Full range of motion no deformity Neuro: Alert and oriented, normal speech moves x4 Initial Vital Signs Initial Vital Signs: Vital Signs Pulse Rate 70 06/12/23 08:45 Pulse Oximetry 94 06/12/23 08:45 Course Orders Ordered: ED Orders 06/12/23 08:56 XR chest 1V Stat Comprehensive Metabolic Panel Stat NT-proBNP (BNP-Adult 18+) Stat Troponin I Stat EKG-12 Lead Stat Measure peak expiratory flow ONCE RT Consult Eval and Treat NOW 06/12/23 08:57 Covid-19 + FLU A/B + RSV - PCR Stat 06/12/23 09:00 BNP [NT-proBNP (BNP-Adult 18+)] Stat CBC Auto Diff [Complete Blood Count AUTO DIFF] Stat CMP [Comprehensive Metabolic Panel] Stat Lactate (Lactic Acid) Stat Prothrombin Time INR Stat Discontinued Medications Albuterol/Ipratropium (Albuterol/Ipratropium 3 Ml Ampul) 3 ml INH NOW ONE Stop: 06/12/23 09:02 Last Admin: 03/30/24 09:15 Dose: 3 ml Documented By: NL Vital Signs Vital signs: Vital Signs - 8 hr 06/12/23 08:45 06/12/23 08:47 06/12/23 09:00 Temperature 98.7 F Pulse Rate 70 76 71 Respiratory Rate 16 28 H Blood Pressure 208/86 H Pulse Oximetry 94 97 Oxygen Delivery Method Room Air 06/12/23 09:15 06/12/23 09:30 06/12/23 10:00 Temperature Pulse Rate 70 69 72 Respiratory Rate 22 24 Blood Pressure Pulse Oximetry 98 99 97 Oxygen Delivery Method Room Air MDM - SOB/Dyspnea Lab Data Lab results narrative: Potassium of 3.3 probably not clinically significant, no leukocytosis, proBNP stable and minimally elevated 06/12/23 09:00 06/12/23 09:00 Labs: Lab Results 06/12/23 06/12/23 Range/Units 08:56 09:00 WBC 4.8 (4.5-11.0) X10^3/uL RBC 4.16 (4.0-5.2) X10^6/uL Hgb 13.5 (12.0-16.0) g/dL Hct 40.4 (36-46) % MCV 97.1 (80-100) fL MCH 32.4 (26-34) PG MCHC 33.4 (30-36) % RDW 14.6 (11.6-14.8) % Plt Count 154 (150-400) X10^3/uL Neut % (Auto) 67.1 (50-75) % Lymph % (Auto) 20.0 L (25-40) % [place]erry % (Auto) 10.2 (3-14) % Eos % (Auto) 1.8 L (2-4) % Baso % (Auto) 0.9 (0-2) % Neut # (Auto) 3200 (8563-6013) /uL Lymph # (Auto) 1000 L (0857-4492) /uL [place] # (Auto) 500 (0-900) /uL Eos # (Auto) 100 (0-450) /uL Baso # (Auto) 0 (0-100) /uL PT 11.8 (9.4-12.5) SECONDS INR 1.0 (0.9-1.3) Sodium 143 143 (137-145) mmol/L Potassium 3.2 L 3.3 L (3.4-5.1) mmol/L Chloride 110 H 110 H (98-107) mmol/L Carbon Dioxide 24 25 (22-32) mmol/L BUN 12 12 (7-17) mg/dL Creatinine 0.57 0.58 (0.52-1.04) mg/dL Estimated GFR > 60 > 60 (>60) mL/min BUN/Creatinine Ratio 21.1 20.7 (6-22) Glucose 101 101 (80-110) mg/dL Lactate 2.1 (0.7-2.1) mmol/L Calcium 9.1 9.1 (8.4-10.2) mg/dL Total Bilirubin 0.6 0.6 (0.2-1.3) mg/dL AST 64 H 60 H (14-36) IU/L ALT 40 H 41 H (<35) IU/L Alkaline Phosphatase 82 84 (38-126) U/L Troponin I < 0.012 (0.01-0.034) ng/mL NT-Pro-B Natriuret Pep 319 H 319 H (<125) pg/mL Total Protein 6.9 6.9 (6.3-8.2) g/dL Albumin 4.0 4.1 (3.5-5.0) g/dL Globulin 2.9 2.8 (1.7-4.1) g/dL Albumin/Globulin Ratio 1.4 1.5 (1.0-2.8) Imaging Data Chest x-ray: My Impression: Independent review of chest x-ray, no acute findings Radiologist's Impression: [address] [address] XRay Report Signed Patient: Hermila Calderón MR#: [id number] : 1955 Acct:[id number] Age/Sex: 68 / F Date of Service: 06/12/23 Loc: ED Accession Number: [id number] Procedure: XR chest 1V Ordering Provider: Sebas Ellington MD PROCEDURE: XR CHEST 1V INDICATIONS: Shortness of breath TECHNIQUE: One view of the chest was acquired. COMPARISON: [facility], CR, XR CHEST 2V, 10/05/2019, 15:47. FINDINGS: Surgical changes and devices: None. Lungs and pleura: There is mild pulmonary vascular congestion. Blunting of left costophrenic angle is seen suggestive of trace left pleural effusion. No definite focal infiltrate. No gross pneumothorax. Mediastinum: Mediastinal contours appear normal. Heart size is normal. Bones and chest wall: No suspicious bony lesions. Overlying soft tissues appear unremarkable. IMPRESSION: Mild congestion. Trace left pleural effusion. No definite focal infiltrate. No pneumothorax. Dictated by: Atul Porras M.D. on 06/12/2023 at 9:21 Approved by: Atul Porras M.D. on 06/12/19 ECG Data Interpretation: Normal sinus rhythm at [address] segment changes MDM Narrative Medical decision making narrative: 68-year-old smoker presenting with wheezing and dyspnea. She has not hypoxic, does not have an infiltrate on her chest x-ray does not febrile. Considered the possibility of heart failure, proBNP is stable at her baseline, does not have rales on exam clinically did not appear to be fluid overloaded. She responded well to nebulized bronchodilators prior to arrival, he also received steroids pre-hospital and these were continue with a prescription for prednisone. Discharge Plan Departure Patient Disposition: Home Clinical Impression: Asthma with exacerbation Activity Restrictions/Additional Instructions: I have sent a prescription for prednisone your pharmacy. Take this as prescribed and started this afternoon. Continue your previous home medications including albuterol as needed. Return to the emergency department for increasing shortness of breath or other acute symptoms follow up soon with her primary care provider. As always, we recommend that you stop smoking Prescriptions: New prednisone 50 mg tablet 50 mg PO DAILY Qty: 5 0RF No Action amlodipine 10 MG tablet 10 mg PO DAILY Qty: 0 tramadol 50 MG tablet 50 mg PO Q4H PRN (Reason: pain) Qty: 0 spironolactone 50 MG tablet 50 mg PO DAILY Qty: 0 atorvastatin 80 MG tablet 80 mg PO BEDTIME Qty: 0 [CRANBERRY] capsule 500 mg PO QPM Qty: 0 [MILK THISTLE] capsule 100 mg PO QPM Qty: 0 [PROBIOTIC] tablet 500 mg PO QPM Qty: 0 [TURMERIC] tablet 200 mg PO QPM Qty: 0 cyanocobalamin (vitamin B-12) [Vitamin B-12] 500 mcg Tablet 500 mcg PO QPM Qty: 0 coenzyme Q10 [Co Q-10] 100 mg Capsule 100 mg PO QPM Qty: 0 ascorbic acid (vitamin C) [Vitamin C] 500 mg Tablet,Chewable 1,000 mg PO DAILY ipratropium-albuterol 0.5 mg-3 mg(2.5 mg base)/3 mL solution for nebulization 3 ml INHALATION Q4-6H PRN (Reason: shortness of breath or wheezing) fluticasone propion-salmeterol 230-21 mcg/actuation HFA aerosol inhaler 2 puff Inhalation BID prednisone 20 mg tablet 20 mg PO DAILY Qty: 6 0RF prednisone 20 mg tablet 20 mg PO DAILY Qty: 15 0RF Rx Instructions: Take 40 mg daily for 4 days, then take 20 mg daily for 4 days and then take 10 mg daily for 4 days. oseltamivir [Tamiflu] 75 mg Capsule 75 mg PO BID Qty: 6 0RF cyclobenzaprine 10 mg tablet 10 mg PO BEDTIME PRN (Reason: muscle spasm) Qty: 5 0RF Rx Instructions: This could cause drowsiness montelukast 10 mg tablet 10 mg PO DAILY Pradaxa 150 mg capsule 150 mg PO BID cyclobenzaprine 10 mg tablet 10 mg PO BEDTIME PRN (Reason: muscle spasm) Qty: 10 0RF lidocaine 5 % adhesive patch,medicated 1 patch TOP DAILY Qty: 30 0RF Rx Instructions: leave on most painful area for up to 12 hrs cyclobenzaprine 10 mg tablet 10 mg PO TID PRN (Reason: muscle spasm) Qty: 14 0RF methocarbamol 500 mg tablet 500 mg PO TID PRN (Reason: musle spasm) Qty: 20 0RF lidocaine [Lidoderm] 5 % adhesive patch,medicated 1 patch topical DAILY PRN (Reason: back pain) Qty: 15 0RF Rx Instructions: leave on most painful area for up to 12 hrs hydrocodone-acetaminophen 5-325 mg tablet 1 tab PO TID PRN (Reason: pain) Qty: 10 0RF albuterol sulfate 90 mcg/actuation HFA aerosol inhaler 2 puff Inhalation PRN PRN (Reason: Shortness Of Breath) hydrocodone-acetaminophen 5-325 mg tablet 1 tab PO Q4-6H PRN (Reason: pain) Qty: 10 0RF amoxicillin-pot clavulanate [Augmentin] 875-125 mg tablet 1 tab PO BID Qty: 20 0RF lidocaine 4 % adhesive patch,medicated 1 patch topical DAILY PRN (Reason: pain) Qty: 15 0RF Rx Instructions: Apply for 12 hours only then remove cyclobenzaprine 5 mg tablet 5 mg PO TID PRN (Reason: muscle spasm) Qty: 10 0RF Referrals: Vaughn River MD [Primary Care Provider] - Stand Alone Forms: Patient Portal/API
[2023-06-12 11:17] LABS: Reflexed Lactate in 2 Hours Y
== END 2023-06-12 10:22 | disposition home or self-care (01) ==
PROVIDERS: Emergency Provider Emergency Medicine; PCP Family Medicine
DX: J45.901 Unspecified asthma with (acute) exacerbation (principal)
CPT/HCPCS: 36415; 71045; 80053; 83605; 83880; 84484; 85025; 85610; 93005; 94640; 99284

== ENCOUNTER 2023-11-18 16:22 | Emergency (ER) | payer MEDICARE, SELFPAY ==
[2018-06-17 17:30] VITALS: BMI 38.4
[2023-11-18] VITALS (12 sets, daily range): BP systolic 173–238; BP diastolic 72–101; PULSE 67–87; RESP 18–32; TEMP 36.6–37.1; O2SAT 96–100; BMI 37.5
--- NOTE | 2023-11-18 16:36 | DI.RAD.S_ITS ---
PROCEDURE: XR CHEST 1V INDICATIONS: chest pain TECHNIQUE: One view of the chest was acquired. COMPARISON: [facility], CR, XR CHEST 1V, 06/12/2023, 9:03. [facility], CR, XR CHEST 2V, 10/05/2019, 15:47. FINDINGS: Surgical changes and devices: None. Lungs and pleura: Lungs are clear. No pleural effusions or pneumothorax. Mediastinum: Mediastinal contours appear normal. Heart size is normal. Bones and chest wall: No suspicious bony lesions. Overlying soft tissues appear unremarkable. IMPRESSION: No acute cardiopulmonary abnormality is seen. Dictated by: Fabrice Avendano M.D. on 11/18/2023 at 17:23 Approved by: Fabrice Avendano M.D. on 11/18/2023 at 17:24
--- NOTE | 2023-11-18 16:36 | EKG_ITS ---
[id number] [address] Test Date: 2023-11-18 Pat Name: Hermila Calderón Department: [facility] Room: Gender: Female County Assessor: RITIKA : 1955 Requested By: Order Number: [id number] Reading MD: Daniel Thomas MD Measurements Intervals [place] Rate: 72 P: 69 [place]: 146 QRS: 46 QRSD: 84 T: 46 QT: 370 QTc: 405 Interpretive Statements Normal sinus rhythm Electronically Signed On 11-18-2023 16:59:26 PDT by Daniel Thomas MD
[2023-11-18 17:04] LABS: Add Manual Diff / Slide Review NO; Basophils Absolute Auto 0 /uL (0-100); Basophils Percent Auto 0.9 % (0-2); Eosinophils Absolute Auto 200 /uL (0-450); Eosinophils Percent Auto 4.8 % (2-4); Hematocrit 39.6 % (36-46); Hemoglobin 13.2 g/dL (12.0-16.0); Lymphocytes Absolute Auto 900 /uL (1100-4500); Lymphocytes Percent Auto 21.5 % (25-40); Mean Corpuscular HGB Conc 33.4 % (30-36); Mean Corpuscular Hemoglobin 32.4 PG (26-34); Monocytes Absolute Auto 400 /uL (0-900); Monocytes Percent Auto 10.2 % (3-14); Neutrophils Absolute Auto 2500 /uL (1500-7000); Neutrophils Percent Auto 62.6 % (50-75); Platelet Count 172 X10^3/uL (150-400); Red Blood Cell Count 4.08 X10^6/uL (4.0-5.2); Red Cell Distribution Width 13.7 % (11.6-14.8); White Blood Cell Count 4.1 X10^3/uL (4.5-11.0)
[2023-11-18 17:06] LABS: INR 1.3 (0.9-1.3); Prothrombin Time 14.7 SECONDS (9.4-12.5)
[2023-11-18 17:12] LABS: Alanine Aminotransferase 26 IU/L (<35); Albumin 4.5 g/dL (3.5-5.0); Albumin Globulin Ratio 1.8 (1.0-2.8); Alkaline Phosphatase 80 U/L (38-126); Aspartate Aminotransferase 41 IU/L (14-36); Bilirubin Total 1.1 mg/dL (0.2-1.3); Blood Urea Nitrogen 16 mg/dL (7-17); Calcium 10.4 mg/dL (8.4-10.2); Carbon Dioxide 25 mmol/L (22-32); Chloride 106 mmol/L (98-107); Creatine Kinase 135 U/L (30-135); Estimated Glomerular Filt Rate > 60 mL/min (>60); Globulin 2.5 g/dL (1.7-4.1); Glucose 91 mg/dL (80-110); HEMOLYSIS < 15 (0-50); Lipase 64 U/L (23-300); Magnesium 1.5 mg/dL (1.6-2.3); Sodium 138 mmol/L (137-145)
[2023-11-18 17:24] LABS: NT-proBNP (BNP-Adult 18+) 86 pg/mL (<125); Troponin I < 0.012 ng/mL (0.01-0.034)
[2023-11-18 17:38] LABS: PTT Partial Thromboplastin Tim 84 SECONDS (25.1-36.5)
--- NOTE | 2023-11-18 19:19 | ED_ITS ---
HPI - General Adult General Chief complaint: Hypertension Stated complaint: sent by MD for HBP Time Seen by Provider: 11/18/23 19:19 Source: patient Mode of arrival: Ambulatory History of Present Illness HPI narrative: Patient is a 68-year-old female history of hypertension presenting today from her PCP for elevated pressure. She reports that it was quite high in the 200s over 100 but she has no symptoms. She denies any headache chest pain shortness of breath or any other symptoms. She was at her PCP for regular medication refill. Blood pressure has come down a little bit now it is 173/72. She reports that she has difficult time with blood pressure medication. She has reactions to most things. She was on lisinopril for a long time but developed chronic cough now she is on losartan. She was previously on atenolol but it cause lower extremity edema. She is currently taking spironolactone amlodipine and losartan. Related Data Home Medications Medication Instructions Recorded Confirmed amlodipine 10 mg tablet 10 mg PO DAILY ##0 04/02/11 04/20/19 tramadol 50 mg tablet 50 mg PO Q4H PRN pain ##0 04/02/11 04/20/19 atorvastatin 80 mg tablet 80 mg PO BEDTIME ##0 04/23/17 04/20/19 spironolactone 50 mg tablet 50 mg PO DAILY ##0 04/23/17 04/20/19 [CRANBERRY] 500 mg PO QPM ##0 05/28/17 06/17/18 [MILK THISTLE] 100 mg PO QPM ##0 05/28/17 06/17/18 [PROBIOTIC] 500 mg PO QPM ##0 05/28/17 06/17/18 [TURMERIC] 200 mg PO QPM ##0 05/28/17 06/17/18 coenzyme Q10 100 mg capsule (Co 100 mg PO QPM ##0 05/28/17 06/17/18 Q-10) cyanocobalamin (vitamin B-12) 500 500 mcg PO QPM ##0 05/28/17 06/17/18 mcg tablet (Vitamin B-12) albuterol sulfate 90 mcg/actuation 2 puff inhalation PRN PRN 01/03/18 04/20/19 aerosol inhaler Shortness Of Breath ascorbic acid (vitamin C) 500 mg 1,000 mg PO DAILY 06/17/18 06/17/18 chewable tablet (Vitamin C) fluticasone propionate 230 2 puff inhalation BID 06/17/18 04/20/19 mcg-salmeterol 21 mcg/actuation HFA inhaler ipratropium 0.5 mg-albuterol 3 mg 3 ml inhalation Q4-6H PRN 06/17/18 06/17/18 (2.5 mg base)/3 mL nebulization shortness of breath or wheezing soln dabigatran etexilate 150 mg 150 mg PO BID 04/20/19 04/20/19 capsule (Pradaxa) montelukast 10 mg tablet 10 mg PO DAILY 04/20/19 04/20/19 Previous Rx's Medication Instructions Recorded oseltamivir 75 mg capsule (Tamiflu) 75 mg PO BID #6 caps 06/19/18 prednisone 20 mg tablet 20 mg PO DAILY #15 tabs 06/19/18 prednisone 20 mg tablet 20 mg PO DAILY #6 tabs 06/19/18 cyclobenzaprine 10 mg tablet 10 mg PO BEDTIME PRN muscle spasm 10/28/18 #5 tabs cyclobenzaprine 10 mg tablet 10 mg PO BEDTIME PRN muscle spasm 04/20/19 #10 tabs lidocaine 5 % topical patch 1 patch topical DAILY #30 ea 04/20/19 cyclobenzaprine 10 mg tablet 10 mg PO TID PRN muscle spasm #14 12/01/20 tabs amoxicillin 875 mg-potassium 1 tab PO BID #20 tabs 12/10/20 clavulanate 125 mg tablet (Augmentin) hydrocodone 5 mg-acetaminophen 325 1 tab PO Q4-6H PRN pain #10 tabs 12/10/20 mg tablet lidocaine 4 % topical patch 1 patch topical DAILY PRN pain #15 12/24/21 ea cyclobenzaprine 5 mg tablet 5 mg PO TID PRN muscle spasm #10 12/25/21 tabs hydrocodone 5 mg-acetaminophen 325 1 tab PO TID PRN pain #10 tabs 05/09/22 mg tablet lidocaine 5 % topical patch 1 patch topical DAILY PRN back 05/09/22 (Lidoderm) pain #15 ea methocarbamol 500 mg tablet 500 mg PO TID PRN musle spasm #20 05/09/22 tabs prednisone 50 mg tablet 50 mg PO DAILY #5 tabs 06/12/23 Allergies Allergy/AdvReac Type Severity Reaction Status Date / Time atenolol [ATENOLOL] Allergy Severe LUNG FILL Verified 05/09/22 15:04 WITH FLUID doxycycline [DOXYCYCLINE] Allergy Severe HIVES Verified 05/09/22 15:04 hydrochlorothiazide Allergy Severe COVERED IN Verified 05/09/22 15:04 [HYDROCHLOROTHIAZIDE] BLISTERS lisinopril [LISINOPRIL] Allergy Severe SEVERE Verified 05/09/22 15:04 COUGH metoprolol [METOPROLOL] Allergy Severe HAIR FELL Verified 05/09/22 15:04 OUT Patient History Medical History (Updated 11/18/23 @ 21:40 by Cindy Davis DO) Back pain Lazy eye of left side Pulmonary embolism Hypertension Hyperlipidemia Surgical History History of back surgery H/O section Social History household members: children Smoking Status: Former smoker alcohol intake: current substance use type: does not use Smoking Status: Former smoker alcohol intake frequency: 0-2 drinks per day Alcohol type: beer Substance Use Type: does not use Exam Initial Vital Signs Initial Vital Signs: Vital Signs Temperature 97.8 F 11/18/23 16:30 Pulse Rate 73 11/18/23 16:30 Respiratory Rate 20 11/18/23 16:30 Blood Pressure 238/101 H 11/18/23 16:30 Pulse Oximetry 98 11/18/23 16:30 Oxygen Delivery Method Room Air 11/18/23 16:30 GENERAL: Alert well-appearing 68-year-old female HEENT: Head atraumatic,EOMI, pupils reactive, face symmetric, [moist] mucous membranes CARDIOVASCULAR: Regular rate and rhythm without murmurs, rubs or gallops. RESPIRATORY: Breath sounds equal bilaterally, no wheezes rales or rhonchi. ABDOMEN: Soft, nontender. Normoactive bowel sounds all 4 quadrants. No guarding or rebound. EXTREMITIES: Normal range of motion, no clubbing or edema. Neurovascularly intact NEUROLOGICAL: Alert and oriented x4.Normal gait and speech. SKIN: Warm, dry, no laceration, no petechiae, no rashes or lesions. Course Orders Ordered: ED Orders 11/18/23 16:36 XR chest 1V Stat EKG-12 Lead Stat 11/18/23 16:43 Complete Blood Count AUTO DIFF Stat Comprehensive Metabolic Panel Stat Lipase Stat Magnesium Stat NT-proBNP (BNP-Adult 18+) Stat PTT Partial Thromboplastin Rosendo Stat Prothrombin Time INR Stat Troponin & CK Cardiac Panel Stat 11/18/23 21:00 BMP [Basic Metabolic Panel] Stat Discontinued Medications Dextrose (Dextrose 50 % In Water 25 Gm/50 Ml Syringe) 25 gm IV NOW ONE Stop: 11/18/23 19:21 Last Admin: 11/18/23 19:37 Dose: 25 gm Documented By: SUKHI Sodium Chloride (Normal Saline 0.9%) 1,000 mls @ 1,000 mls/hr IV BOLUS ONE Stop: 11/18/23 20:19 Last Infusion: 11/18/23 21:03 Dose: Infused Documented By: Admin: 11/18/23 19:36 Dose: 1,000 mls/hr Documented By: SUKHI Insulin Human Regular (Insulin Regular 100 Unit/Ml 3 Ml Vial) 5 unit IV NOW ONE Stop: 11/18/23 19:21 Last Admin: 11/18/23 19:39 Dose: 5 unit Documented By: SUKHI Co-signed By: REZA Vital Signs Vital signs: Vital Signs - 8 hr 11/18/23 18:59 11/18/23 19:00 11/18/23 19:00 Temperature Pulse Rate 81 Respiratory Rate Blood Pressure 222/83 H Pulse Oximetry 96 97 Oxygen Delivery Method 11/18/23 19:11 11/18/23 19:11 11/18/23 19:13 Temperature Pulse Rate 86 87 Respiratory Rate 20 Blood Pressure 173/72 H 173/72 H Pulse Oximetry 98 98 Oxygen Delivery Method 11/18/23 20:00 11/18/23 20:30 11/18/23 21:00 Temperature Pulse Rate 70 67 68 Respiratory Rate 18 21 24 Blood Pressure Pulse Oximetry 98 100 100 Oxygen Delivery Method 11/18/23 21:09 11/18/23 21:30 11/18/23 21:46 Temperature Pulse Rate 69 75 72 Respiratory Rate 29 H 27 H 32 H Blood Pressure Pulse Oximetry 97 98 99 Oxygen Delivery Method 11/18/23 21:46 11/18/23 21:55 Temperature 98.8 F Pulse Rate 74 Respiratory Rate 20 Blood Pressure 198/80 H 198/80 H Pulse Oximetry 99 Oxygen Delivery Method Room Air Medical Decision Making Lab Data 11/18/23 16:43 11/18/23 21:00 Labs: Lab Results 11/18/23 11/18/23 Range/Units 16:43 21:00 WBC 4.1 L (4.5-11.0) X10^3/uL RBC 4.08 (4.0-5.2) X10^6/uL Hgb 13.2 (12.0-16.0) g/dL Hct 39.6 (36-46) % MCV 97.0 (80-100) fL MCH 32.4 (26-34) PG MCHC 33.4 (30-36) % RDW 13.7 (11.6-14.8) % Plt Count 172 (150-400) X10^3/uL Neut % (Auto) 62.6 (50-75) % Lymph % (Auto) 21.5 L (25-40) % [place] % (Auto) 10.2 (3-14) % Eos % (Auto) 4.8 H (2-4) % Baso % (Auto) 0.9 (0-2) % Neut # (Auto) 2500 (3645-6280) /uL Lymph # (Auto) 900 L (6006-9519) /uL [place] # (Auto) 400 (0-900) /uL Eos # (Auto) 200 (0-450) /uL Baso # (Auto) 0 (0-100) /uL PT 14.7 H (9.4-12.5) SECONDS INR 1.3 (0.9-1.3) APTT 84 H* (25.1-36.5) SECONDS Sodium 138 135 L (137-145) mmol/L Potassium 6.0 H 4.0 D (3.4-5.1) mmol/L Chloride 106 104 (98-107) mmol/L Carbon Dioxide 25 26 (22-32) mmol/L BUN 16 15 (7-17) mg/dL Creatinine 0.89 0.75 (0.52-1.04) mg/dL Estimated GFR > 60 > 60 (>60) mL/min BUN/Creatinine Ratio 18.0 20.0 (6-22) Glucose 91 156 H (80-110) mg/dL Calcium 10.4 H 9.5 (8.4-10.2) mg/dL Magnesium 1.5 L (1.6-2.3) mg/dL Total Bilirubin 1.1 (0.2-1.3) mg/dL AST 41 H (14-36) IU/L ALT 26 (<35) IU/L Alkaline Phosphatase 80 (38-126) U/L Total Creatine Kinase 135 (30-135) U/L Troponin I < 0.012 (0.01-0.034) ng/mL NT-Pro-B Natriuret Pep 86 (<125) pg/mL Total Protein 7.0 (6.3-8.2) g/dL Albumin 4.5 (3.5-5.0) g/dL Globulin 2.5 (1.7-4.1) g/dL Albumin/Globulin Ratio 1.8 (1.0-2.8) Lipase 64 (23-300) U/L Point of Care Testing Glucose POC 222 Point of care testing: Point of Care Testing Glucose POC 222 Imaging Data Chest x-ray: Radiologist's Impression: PROCEDURE: XR CHEST 1V INDICATIONS: chest pain TECHNIQUE: One view of the chest was acquired. COMPARISON: [facility], CR, XR CHEST 1V, 06/12/2023, 9:03. [facility], CR, XR CHEST 2V, 10/05/2019, 15:47. FINDINGS: Surgical changes and devices: None. Lungs and pleura: Lungs are clear. No pleural effusions or pneumothorax. Mediastinum: Mediastinal contours appear normal. Heart size is normal. Bones and chest wall: No suspicious bony lesions. Overlying soft tissues appear unremarkable. IMPRESSION: No acute cardiopulmonary abnormality is seen. Dictated by: Fabrice Avendano M.D. on 11/18/2023 at 17:23 ECG Data Attestation: I personally reviewed and interpreted this ECG as follows: Prior ECG tracings: available for review Interpretation: Normal sinus rhythm rate 72 MI interval 146 QRS 84 QTC 405 no significant peaked T-waves or ST changes MDM Narrative Medical decision making narrative: MDM CC: Elevated blood pressure Complicating co-morbidities: Difficult to control hypertension multiple allergies to multiple medications Medical records reviewed: Previous ED visit for asthma, no PCP notes to review Differential considered: Hypertensive urgency hypertensive emergency Exam documented above, pertinent findings include: No physical exam findings are significant. She overall appears well sitting on the edge of the bed. No difficulty breathing no cyanosis Lab Test results independently reviewed as above. Pertinent findings: Potassium 6.0 with repeat 4.0 WBC 4.1 hemoglobin 13.2 hematocrit 39.6 platelets 172, sodium 138, potassium 6.0 chloride 106 carbon dioxide 25 BUN 16 creatinine 0.8 calcium 10.4 Mag is 1 point 5 bili 1.1 AST 41, ALT 26 troponin negative Independently reviewed EKG as above: No peaked T-waves no ischemia Imaging studies independently reviewed: Chest x-ray no acute cardiopulmonary process Consultations: None Treatments: IV fluids insulin dextrose Re-evaluations: Patient continues to be asymptomatic. Blood pressure has come down without any intervention. Discussion: Patient 68-year-old female presents today with asymptomatic hypertension found to be hyperkalemic. She is on spironolactone and losartan both can cause hyperkalemia. Blood pressure actually has come down without any sort of intervention. She has no other evidence of end-organ damage. Her hyperkalemia has been corrected. At this time I would hold her losartan and spironolactone. She reports that she does have amlodipine at home I recommend that she take the 10 mg. At this time I recommend she have outpatient blood work rechecked. She will likely need further blood pressure medication but she is multiple reactions to many of them. Discharge Plan Departure Patient Disposition: Home Clinical Impression: Hypertension, Acute hyperkalemia Instructions: DI for High Blood Pressure Activity Restrictions/Additional Instructions: *You have been diagnosed with high blood pressure high potassium *What to do: At this time I think your high potassium to many of your blood pressure medications. ED to have repeat potassium level checked next week with your primary care physician. I also anticipate your medications will need to be changed. *Continue to take medications as directed STOP: Taking spironolactone and losartan May take amlodipine 10 mg once a day *Follow up with your primary care provider in 2-3 days or call [phone] *Return to ER if you should have increasing chest pain headache shortness of breath or any new, worsening or concerning symptoms Prescriptions: No Action amlodipine 10 MG tablet 10 mg PO DAILY Qty: 0 tramadol 50 MG tablet 50 mg PO Q4H PRN (Reason: pain) Qty: 0 spironolactone 50 MG tablet 50 mg PO DAILY Qty: 0 atorvastatin 80 MG tablet 80 mg PO BEDTIME Qty: 0 [CRANBERRY] capsule 500 mg PO QPM Qty: 0 [MILK THISTLE] capsule 100 mg PO QPM Qty: 0 [PROBIOTIC] tablet 500 mg PO QPM Qty: 0 [TURMERIC] tablet 200 mg PO QPM Qty: 0 cyanocobalamin (vitamin B-12) [Vitamin B-12] 500 mcg Tablet 500 mcg PO QPM Qty: 0 coenzyme Q10 [Co Q-10] 100 mg Capsule 100 mg PO QPM Qty: 0 ascorbic acid (vitamin C) [Vitamin C] 500 mg Tablet,Chewable 1,000 mg PO DAILY ipratropium-albuterol 0.5 mg-3 mg(2.5 mg base)/3 mL solution for nebulization 3 ml INHALATION Q4-6H PRN (Reason: shortness of breath or wheezing) fluticasone propion-salmeterol 230-21 mcg/actuation HFA aerosol inhaler 2 puff Inhalation BID prednisone 20 mg tablet 20 mg PO DAILY Qty: 6 0RF prednisone 20 mg tablet 20 mg PO DAILY Qty: 15 0RF Rx Instructions: Take 40 mg daily for 4 days, then take 20 mg daily for 4 days and then take 10 mg daily for 4 days. oseltamivir [Tamiflu] 75 mg Capsule 75 mg PO BID Qty: 6 0RF cyclobenzaprine 10 mg tablet 10 mg PO BEDTIME PRN (Reason: muscle spasm) Qty: 5 0RF Rx Instructions: This could cause drowsiness montelukast 10 mg tablet 10 mg PO DAILY Pradaxa 150 mg capsule 150 mg PO BID cyclobenzaprine 10 mg tablet 10 mg PO BEDTIME PRN (Reason: muscle spasm) Qty: 10 0RF lidocaine 5 % adhesive patch,medicated 1 patch TOP DAILY Qty: 30 0RF Rx Instructions: leave on most painful area for up to 12 hrs cyclobenzaprine 10 mg tablet 10 mg PO TID PRN (Reason: muscle spasm) Qty: 14 0RF methocarbamol 500 mg tablet 500 mg PO TID PRN (Reason: musle spasm) Qty: 20 0RF lidocaine [Lidoderm] 5 % adhesive patch,medicated 1 patch topical DAILY PRN (Reason: back pain) Qty: 15 0RF Rx Instructions: leave on most painful area for up to 12 hrs hydrocodone-acetaminophen 5-325 mg tablet 1 tab PO TID PRN (Reason: pain) Qty: 10 0RF albuterol sulfate 90 mcg/actuation HFA aerosol inhaler 2 puff Inhalation PRN PRN (Reason: Shortness Of Breath) hydrocodone-acetaminophen 5-325 mg tablet 1 tab PO Q4-6H PRN (Reason: pain) Qty: 10 0RF amoxicillin-pot clavulanate [Augmentin] 875-125 mg tablet 1 tab PO BID Qty: 20 0RF lidocaine 4 % adhesive patch,medicated 1 patch topical DAILY PRN (Reason: pain) Qty: 15 0RF Rx Instructions: Apply for 12 hours only then remove cyclobenzaprine 5 mg tablet 5 mg PO TID PRN (Reason: muscle spasm) Qty: 10 0RF prednisone 50 mg tablet 50 mg PO DAILY Qty: 5 0RF Referrals: Vaughn iRver MD [Primary Care Provider] - Stand Alone Forms: Patient Portal/API
[2023-11-18] MEDS: SODIUM CHLORIDE 0.9% 1,000 ML 1000 ML IV (19:36)
[2023-11-18] MEDS: DEXTROSE 50 % IN WATER 25 GM/50 ML SYRINGE IV (19:37)
[2023-11-18] MEDS: INSULIN REGULAR 100 UNIT/ML 3 ML VIAL IV (19:39)
[2023-11-18 21:30] LABS: Blood Urea Nitrogen 15 mg/dL (7-17); Calcium 9.5 mg/dL (8.4-10.2); Carbon Dioxide 26 mmol/L (22-32); Chloride 104 mmol/L (98-107); Estimated Glomerular Filt Rate > 60 mL/min (>60); Glucose 156 mg/dL (80-110); HEMOLYSIS < 15 (0-50); Sodium 135 mmol/L (137-145)
== END 2023-11-18 21:57 | disposition home or self-care (01) ==
PROVIDERS: Emergency Medicine; Emergency Provider Emergency Medicine; PCP Family Medicine
DX: I10 Essential (primary) hypertension (principal); E87.5 Hyperkalemia; R07.9 Chest pain, unspecified; Z79.899 Other long term (current) drug therapy
CPT/HCPCS: 36415; 71045; 80048; 80053; 82550; 82962; 83690; 83735; 83880; 84484; 85025; 85610; 85730; 93005; 93010; 96361; 96374; 96375; 99284

== ENCOUNTER → 2024-01-24 14:22 | Outpatient (CLI) | payer MEDICARE, SELFPAY ==
[2018-06-17 17:30] VITALS: BMI 38.4
[2024-01-24 14:43] LABS: Estimated Glomerular Filt Rate > 60 mL/min (>60)
== END ==
PROVIDERS: Radiology Diagnostic Radiology; PCP Family Medicine; Referring Provider Family Medicine; Visit Provider Family Medicine
DX: I10 Essential (primary) hypertension (principal)
CPT/HCPCS: 36415; 82565

== ENCOUNTER → 2024-01-27 13:55 | Outpatient (CLI) | payer MEDICARE, SELFPAY ==
[2018-06-17 17:30] VITALS: BMI 38.4
--- NOTE | 2024-01-27 13:56 | DI.CT.S_ITS ---
PROCEDURE: CT ANGIO ABDOMEN PELVIS INDICATIONS: sciatica/ renal artery stenosis TECHNIQUE: After the administration of intravenous contrast, 2.5 mm sections acquired from the diaphragm to the iliac crests. 10 mm maximum intensity projection (MIP) coronal and sagittal reformats were then performed. For radiation dose reduction, the following was used: automated exposure control. COMPARISON: None. FINDINGS: Image quality: Diagnostic. Abdominal aorta and iliac arteries: Infrarenal abdominal aorta demonstrates diffuse calcified plaque without significant stenosis, aneurysmal dilatation or dissection. Calcified plaque involving both common iliac arteries without significant stenosis, aneurysmal dilatation or dissection. Both external iliac arteries are patent without significant stenosis, aneurysmal dilatation or dissection. Both internal iliac arteries are patent. Mesenteric arteries: Celiac artery and associated branches are patent. SMA is patent. HUGO is patent. Renal arteries: Mild degree of calcified plaque involving both renal artery ostia without significant stenosis, aneurysmal dilatation or dissection. Lower chest: Unremarkable. Partially imaged scattered nodules within the right middle lobe ranging in size from 2-3 mm. ABDOMEN: Liver: No solid mass. Gallbladder: Tiny calcified gallstones within the gallbladder lumen. Biliary ducts: No biliary dilation. Pancreas: No focal mass lesion. No pancreatic duct dilatation. Spleen: Size is within normal limits. Scattered punctate calcified granulomas. Adrenal Glands: No adrenal nodules. Kidneys and Ureters: No hydronephrosis. No solid mass. No complex renal cystic lesion which requires follow up. Stomach and Bowel: Small large bowel appear normal in caliber without evidence of bowel obstruction. Colonic diverticulosis without evidence of diverticulitis. 1 cm submucosal lipoma within the 2nd portion of the duodenum. Peritoneum: No abnormal intraperitoneal fluid. No free air. Ventral Wall: Small umbilical hernia containing fat. Abdominal Nodes: No retroperitoneal or mesenteric adenopathy by size criteria. Vessels: Aorta, as above. Normal IVC. PELVIS: Pelvic Organs: Unremarkable. Bladder: Unremarkable. Pelvic Nodes: No enlarged lymph nodes. Miscellaneous: No inguinal hernias are seen. Bones: No aggressive osseous abnormality. IMPRESSION: 1. Essentially unremarkable CT angiogram of the abdomen pelvis without evidence of aneurysm or significant stenosis specifically no renal artery stenosis. 2. Cholelithiasis. Dictated by: Kehinde Conroy M.D. on 01/28/2024 at 8:29 Approved by: Kehinde Conroy M.D. on 01/28/2024 at 8:51
--- NOTE | 2024-01-27 13:57 | DI.MRI.S_ITS ---
PROCEDURE: MR LUMBAR SPINE WO CON INDICATIONS: sciatica/ renal artery stenosis TECHNIQUE: Noncontrast sagittal T1 spin echo and T2 fast echo, sagittal STIR, and T2 fast spin echo through the lumbar spine. In cases with scoliosis, additional coronal T2 fast spin echo may be performed. COMPARISON: [facility], CT, CT ANGIO ABDOMEN PELVIS, 01/27/2024, 15:28. FINDINGS: Image quality: This examination is limited by involuntary motion artifact. Alignment and Curvature: There is [id number] dextroconvex lumbar scoliosis. There is minimal anterolisthesis at L3-L4 and L4-L5. Bone Marrow: Marrow is of normal overall signal. No acute vertebral body compression fractures. Spinal Cord: Conus medullaris terminates at the L1 level. Visualized cord demonstrates normal signal and size. Paraspinous Soft Tissues: No paravertebral masses. T12-L1: Normal appearance. L1-L2: The disc height is well-preserved. Loss of disc signal is seen at this level. Mild generalized disc bulge is seen. Bridging endplate osteophytes can be seen on the left, as on series 2, image 5. No significant neural foraminal or central canal narrowing can be seen. L2-L3: Mild loss of disc height is seen. Loss of disc signal is seen. Bridging endplate osteophytes can be seen on the left, as on series 2 image 5. Mild disc bulge is seen, with a central disc protrusion. At least moderate facet hypertrophy is seen. There is mild right-sided and no significant left-sided neural narrowing. There is at least moderate central canal narrowing, as on series 6, image 18. L3-L4: The disc height is well-preserved. Loss of disc signal is seen at this level. Moderate generalized disc bulge is seen. There is a superimposed central disc protrusion. There is at least moderate facet hypertrophy. Associated hypertrophy of the ligamentum flavum can be seen. There is moderate to severe bilateral neural foraminal narrowing seen, with an associated degree of compression seen upon the exiting nerve roots. Moderate to severe central canal narrowing is seen, as on series 6, images 21 and 22. L4-L5: Moderate loss of disc height is seen. Loss of disc signal is seen. Moderate generalized disc bulge is seen. There is a superimposed central disc protrusion. There prominent right-sided and moderate left-sided facet hypertrophy. There is at least moderate right-sided neural foraminal narrowing, with a degree of compression upon the exiting right L4 nerve root. There has been removal of portions of the posterior elements. No central canal narrowing is seen. L5-S1: The disc height and disk signal are relatively well-preserved. Mild to moderate disc bulge is seen, which is eccentric to the right. There is at least moderate facet hypertrophy. There is at least moderate left-sided and moderate to severe right-sided neural foraminal narrowing. There is a degree of compression seen upon the exiting right L5 nerve root. At least moderate central canal narrowing is seen. IMPRESSION: Multiple levels of significant lower lumbar spine degenerative change can be seen. Prior postoperative change at L4-L5, with removal of portions of the posterior elements. [id number] dextroconvex lumbar scoliosis. Dictated by: Zachery Maki M.D. on 01/27/2024 at 16:46 Approved by: Zachery Maki M.D. on 01/27/2024 at 16:51
== END ==
PROVIDERS: PCP Family Medicine; Referring Provider Family Medicine; Visit Provider Family Medicine
DX: M47.816 Spondylosis without myelopathy or radiculopathy, lumbar region; M47.817 Spondylosis without myelopathy or radiculopathy, lumbosacral region; M41.9 Scoliosis, unspecified; M54.30 Sciatica, unspecified side; I15.0 Renovascular hypertension; I10 Essential (primary) hypertension; K80.20 Calculus of gallbladder without cholecystitis without obstruction; K42.9 Umbilical hernia without obstruction or gangrene; D17.5 Benign lipomatous neoplasm of intra-abdominal organs; K57.90 Diverticulosis of intestine, part unspecified, without perforation or abscess without bleeding
CPT/HCPCS: 72148; 74174; Q9967

== ENCOUNTER → 2024-09-11 11:36 | Outpatient (CLI) | payer MEDICARE, SELFPAY ==
[2018-06-17 17:30] VITALS: BMI 38.4
--- NOTE | 2024-09-11 11:39 | DI.US.S_ITS ---
PROCEDURE: US ABDOMEN LIMITED INDICATIONS: EPIGATRIC PAIN TECHNIQUE: Real-time scanning was performed of the abdominal and retroperitoneal organs, with image documentation. COMPARISON: [facility], , US ABDOMEN LIMITED, 10/19/2022, 15:28. FINDINGS: Liver: Measures 15.3 cm. Increased in echogenicity. Gallbladder: Mobile gallstones. No wall thickening. No pericholecystic edema. Negative sonographic Yeboah's sign. Biliary ducts: Intrahepatic bile ducts are non-dilated. Extrahepatic bile duct caliber measures 5 mm. Normal is 6-7 mm or less in diameter, or 10 mm or less post-cholecystectomy. Pancreas: Visualized portions of the pancreas are sonographically normal. Miscellaneous: No free abdominal fluid. IMPRESSION: 1. No acute cholecystitis demonstrated. Mobile gallstones. 2. Increased hepatic echogenicity most consistent with hepatic steatosis. Other forms of hepatocellular disease could have similar appearance. Dictated by: Jack Barriga M.D. on 09/11/2024 at 15:43 Approved by: Jack Barriga M.D. on 09/11/2024 at 15:46
== END ==
LOC: US 11:37
PROVIDERS: PCP Family Medicine; Referring Provider Family Medicine; Visit Provider Family Medicine
DX: K80.20 Calculus of gallbladder without cholecystitis without obstruction (principal); R10.13 Epigastric pain
CPT/HCPCS: 76705